=== PATIENT | male | born 1975 | race Caucasian/White ===

== ENCOUNTER 2020-07-30 14:36 | Inpatient (IN) | payer OTHER, SELFPAY ==
[2020-07-30] VITALS (15 sets, daily range): BP systolic 127–196; BP diastolic 67–99; PULSE 93–117; RESP 16–32; TEMP 36.3–36.7; O2SAT 94–99; BMI 34.9; BMI 35.0
--- NOTE | 2020-07-30 15:23 | DI.RAD.S_ITS ---
PROCEDURE: XR CHEST 1V INDICATIONS: chest pain TECHNIQUE: One view of the chest was acquired. COMPARISON: None. FINDINGS: Surgical changes and devices: None. Lungs and pleura: Lungs are clear. No pleural effusions or pneumothorax. Mediastinum: Mediastinal contours appear normal. Heart size is normal. Bones and chest wall: No suspicious bony lesions. Overlying soft tissues appear unremarkable. IMPRESSION: No acute cardiopulmonary pathology. Dictated by: Steve Moreno M.D. on 07/30/2020 at 15:02 Approved by: Steve Moreno M.D. on 07/30/2020 at 15:05
--- NOTE | 2020-07-30 15:23 | PC.NURSE ---
POC glucose greater than 500. Provider notified and lab sent to verify.
--- NOTE | 2020-07-30 15:27 | ED_ITS ---
HPI - Chest Pain General Chief Complaint: Chest Pain Stated Complaint: chest pains/nausea/stomach pains x3 days Time Seen by Provider: 07/30/20 15:24 Source: patient Mode of arrival: Ambulatory Limitations: no limitations History of Present Illness HPI narrative: 45-year-old male comes in with complaint of epigastric abdominal pain radiating to chest and jaw. Patient states it has been present for 3-4 days. He states it started on , he started having anorexia not wanting to eat much on Thursday and began vomiting on Thursday as well. He has not had fevers but has had hot flashes on and off. He has had some vomiting recently as well as persistent nausea. Patient states that he has not had any diarrhea. He has been constipated. He states that he has also had a D increase in his urine output. He has had not had any known fevers. He has not had any cough cold symptoms. He does have a history of ETOH abuse and has had pancreatitis in the past secondary to this, he has a history of a [place] fundoplication take Zofran omeprazole regularly. He is on metformin as well as insulin for diabetes, he takes an anti hypertension, dyslipidemia. He denies any aspirin. No prior strokes or MIs. He has never had prior DKA but has had issues with hyperglycemia in the past. He quit taking his insulin on . Patient states that he does still drink 224 oz beers nightly which he states is a decrease from his prior. He uses THC intermittently. Denies any tobacco. Related Data Home Medications Medication Instructions Recorded Confirmed atorvastatin 80 mg tablet 80 mg PO DAILY 04/20/20 04/24/20 fluoxetine 40 mg capsule 40 mg PO DAILY 04/20/20 04/24/20 fluticasone propionate 50 1 inhalation INHALATION BID 04/20/20 04/24/20 mcg/actuation blister powder for inhalation insulin glargine 100 unit/mL (3 10 unit SUBCUT DAILY 04/20/20 04/24/20 mL) subcutaneous pen insulin regular hum U-500 conc 500 25 unit SUBCUT BEDTIME 04/20/20 04/24/20 unit/mL subcutaneous soln zesokz-[id number]-uelbzsy 1 cap PO BID 04/20/20 04/24/20 12,000-38,000-60,000 unit capsule,delayed rel metformin 500 mg tablet 500 mg PO DAILY 04/20/20 04/24/20 chlorthalidone 25 mg tablet 25 mg PO DAILY 04/24/20 04/24/20 lisinopril 40 mg tablet 40 mg PO DAILY 04/24/20 04/24/20 Allergies Allergy/AdvReac Type Severity Reaction Status Date / Time No Known Drug Allergies Allergy Verified 07/30/20 14:46 Review of Systems Review of Systems ROS Unobtainable: All systems reviewed & are unremarkable except as noted in HPI and below Patient History Medical History Acute kidney injury Arthritis BPH w urinary obs/LUTS Chronic GERD Depression Diabetes mellitus Erectile dysfunction Erectile dysfunction Gastritis Hyperlipidemia Hypertension Pancreatitis Social History Smoking Status: Never smoker Smoking Status: Never smoker alcohol intake frequency: 0-2 drinks per day Substance Use Type: marijuana Exam Narrative Exam Narrative: GENERAL: Alert and oriented x three, obese male in mild to moderate distress. HEENT: Head normocephalic, atraumatic, EOMI, pupils reactive, face symmetric, moist mucous membranes NECK: Supple, full range of motion CARDIOVASCULAR: Tachycardic Regular rate and rhythm without murmurs, rubs or gallops. No JVD. No edema bilateral lower extremities. RESPIRATORY: Breath sounds equal bilaterally, no wheezes rales or rhonchi. ABDOMEN: Soft, nontender to palpation. Normoactive bowel sounds all 4 quadrants. No guarding or rebound, rigidity, no mass : No CVA tenderness EXTREMITIES: Normal range of motion. Neurovascularly intact NEUROLOGICAL: Cranial nerves II through XII grossly intact. Moving all extremities SKIN: Warm, dry, no petechiae, no rashes or lesions. Initial Vital Signs Initial Vital Signs: Vital Signs Temperature 97.8 F 07/30/20 14:42 Pulse Rate 110 H 07/30/20 14:42 Respiratory Rate 22 07/30/20 14:42 Blood Pressure 188/96 H 07/30/20 14:42 Pulse Oximetry 99 07/30/20 14:42 Scores GCS [place] coma scale eye opening: Spontaneous [place] coma scale verbal response: Orientated [place] coma scale motor response: Obey commands [place] coma scale total score: 15 Course Orders Ordered: ED Orders 07/30/20 15:19 Complete Blood Count AUTO DIFF Stat Comprehensive Metabolic Panel Stat Ketones (Beta-Hydroxybutyrate) Stat Lactate (Lactic Acid) Stat Lipase Stat Partial Thromboplastin Time Stat Procalcitonin Stat Prothrombin Time INR Stat Triglycerides Stat Troponin & CK Cardiac Panel Stat 07/30/20 15:23 XR chest 1V Stat EKG-12 Lead Stat 07/30/20 15:25 EKG-12 Lead Stat 07/30/20 16:08 Venous Blood Gas Stat 07/30/20 16:09 US abdomen complete Stat Blood Culture Stat 07/30/20 16:10 Arterial Blood Gas Stat 07/30/20 16:31 Urine Microscopic Stat 07/30/20 16:49 COVID19 Stat 07/30/20 17:44 Arterial Blood Gas Stat Heparin Sodium (Porcine) (Heparin 5,000 Unit/Ml Vial) 5,000 unit SUBCUT BID ROSARIO INSULIN DRIP PREMIX (Myxredlin Drip Premix) 100 unit in 100 mls @ 6 mls/hr IV TITRATE ROSARIO; Protocol Sodium Chloride (Normal Saline 0.9%) 1,000 mls @ 100 mls/hr IV CONT ROSARIO Naloxone HCl (Naloxone 0.4 Mg/Ml Vial) 0.2 mg IV Q2MIN PRN PRN Reason: Opiate Reversal Pantoprazole Sodium (Pantoprazole 40 Mg Vial) 40 mg IV DAILY ROSARIO Discontinued Medications Sodium Chloride (Normal Saline 0.9%) 1,000 mls @ 1,000 mls/hr IV BOLUS ONE Stop: 07/30/20 16:24 Last Admin: 07/30/20 15:58 Dose: 1,000 mls/hr Documented by: RMARTIN Sodium Chloride (Normal Saline 0.9%) 1,000 mls @ 1,000 mls/hr IV BOLUS ONE Stop: 07/30/20 17:25 Last Infusion: 07/30/20 17:19 Dose: Infused Documented by: Insulin Human Regular (Insulin Regular 100 Unit/Ml 3 Ml Vial) 10 unit SUBCUT NOW ONE Stop: 07/30/20 17:22 Morphine Sulfate (Morphine 4 Mg/Ml Inj) 4 mg IV NOW ONE Stop: 07/30/20 16:21 Last Admin: 07/30/20 17:18 Dose: 4 mg Documented by: Consultations Consultation #1: Spoke with Dr. Mazariegos, requests triglycerides and ABG to help determine floor versus ICU placement. Dr. Mazariegos called back and would like insulin gtt, and to hold subcutaneous insulin. Time: 17:21 Vital Signs Vital signs: Vital Signs - 8 hr 07/30/20 14:42 07/30/20 15:24 07/30/20 15:30 Temperature 97.8 F Pulse Rate 110 H 117 H 107 H Respiratory Rate 22 26 H 32 H Blood Pressure 188/96 H 182/96 H Pulse Oximetry 99 97 98 07/30/20 16:00 07/30/20 16:30 07/30/20 17:00 Temperature Pulse Rate 103 H 98 H 100 H Respiratory Rate 22 24 Blood Pressure 189/91 H 191/93 H 184/94 H Pulse Oximetry 99 97 98 07/30/20 17:30 07/30/20 18:00 Temperature Pulse Rate 101 H 102 H Respiratory Rate 16 25 H Blood Pressure 179/91 H 196/99 H Pulse Oximetry 97 98 MDM - Chest Pain Lab Data Attestation: I reviewed the patient's lab results. Result diagrams: 07/30/20 15:19 07/30/20 15:19 Labs: Lab Results 07/30/20 07/30/20 07/30/20 Range/Units 15:19 15:19 15:19 WBC 12.5 H (4.5-11.0) X10^3/uL RBC 4.93 (4.5-5.9) X10^6/uL Hgb 15.1 (13.5-17.5) g/dL Hct 45.9 (41-53) % MCV 93.1 (80-100) fL MCH 30.5 (26-34) PG MCHC 32.8 (30-36) % RDW 12.7 (11.6-14.8) % Plt Count 221 (150-400) X10^3/uL Neut % (Auto) 88.7 H (50-75) % Lymph % (Auto) 5.8 L (25-40) % Wayne % (Auto) 5.0 (3-14) % Eos % (Auto) 0.0 L (2-4) % Baso % (Auto) 0.5 (0-2) % Neut # (Auto) 53264 H (7629-1790) /uL Lymph # (Auto) 700 L (7401-4719) /uL Wayne # (Auto) 600 (0-900) /uL Eos # (Auto) 0 (0-450) /uL Baso # (Auto) 100 (0-100) /uL PT 11.4 (10.1-12.7) SECONDS INR 1.0 (0.9-1.3) APTT 30 (26.4-36.2) SECONDS ABG pH (7.35-7.45) ABG pCO2 (35-45) mmHg ABG pO2 (80-100) mmHg ABG HCO3 (22-26) mmol/L ABG Total CO2 (21-31) mmol/L ABG O2 Saturation (95-100) % ABG Base Excess (-2-2) mmol/L VBG pH (7.33-7.43) VBG pCO2 (45-50) mmHg VBG pO2 (35-45) mmHg VBG HCO3 (23-28) mmol/L VBG Total CO2 (24-29) mmol/L VBG O2 Saturation (70-75) % VBG Base Excess (0-4) mmol/L FiO2 Sodium 121 L (137-145) mmol/L Potassium 5.7 H (3.4-5.1) mmol/L Chloride 79 L (98-107) mmol/L Carbon Dioxide 20 L (22-32) mmol/L BUN 61 H (9-20) mg/dL Creatinine 2.37 H (0.66-1.25) mg/dL Estimated GFR 29.6 L (>60) mL/min BUN/Creatinine Ratio 25.7 H (6-22) Glucose 791 H* (70-100) mg/dL Lactate (0.7-2.1) mmol/L Calcium 10.1 (8.4-10.2) mg/dL Total Bilirubin 0.9 (0.2-1.3) mg/dL AST 26 (17-59) IU/L ALT 39 (<50) IU/L Alkaline Phosphatase 144 H (38-126) U/L Total Creatine Kinase 350 H (55-170) U/L CK-MB (CK-2) 3.13 H (<2.37) ng/mL CK-MB (CK-2) Rel Index 0.9 L (1.5-5.0) % Troponin I 0.033 (0.01-0.034) ng/mL Total Protein 7.9 (6.3-8.2) g/dL Albumin 4.5 (3.5-5.0) g/dL Globulin 3.4 (1.7-4.1) g/dL Albumin/Globulin Ratio 1.3 (1.0-2.8) Triglycerides (35-150) mg/dL Lipase 3490 H (23-300) U/L Procalcitonin (<0.5) ng/mL Urine RBC (0-5/HPF) Urine WBC (0-5/HPF) Urine Bacteria (None) Ur Culture Indicated? Micro UA Comment Ketones (<0.27) mmol/L COVID-19 PCR (Negative) 07/30/20 07/30/20 07/30/20 Range/Units 15:19 15:19 15:19 WBC (4.5-11.0) X10^3/uL RBC (4.5-5.9) X10^6/uL Hgb (13.5-17.5) g/dL Hct (41-53) % MCV (80-100) fL MCH (26-34) PG MCHC (30-36) % RDW (11.6-14.8) % Plt Count (150-400) X10^3/uL Neut % (Auto) (50-75) % Lymph % (Auto) (25-40) % Wayne % (Auto) (3-14) % Eos % (Auto) (2-4) % Baso % (Auto) (0-2) % Neut # (Auto) (4475-0109) /uL Lymph # (Auto) (8258-8376) /uL Wayne # (Auto) (0-900) /uL Eos # (Auto) (0-450) /uL Baso # (Auto) (0-100) /uL PT (10.1-12.7) SECONDS INR (0.9-1.3) APTT (26.4-36.2) SECONDS ABG pH (7.35-7.45) ABG pCO2 (35-45) mmHg ABG pO2 (80-100) mmHg ABG HCO3 (22-26) mmol/L ABG Total CO2 (21-31) mmol/L ABG O2 Saturation (95-100) % ABG Base Excess (-2-2) mmol/L VBG pH (7.33-7.43) VBG pCO2 (45-50) mmHg VBG pO2 (35-45) mmHg VBG HCO3 (23-28) mmol/L VBG Total CO2 (24-29) mmol/L VBG O2 Saturation (70-75) % VBG Base Excess (0-4) mmol/L FiO2 Sodium (137-145) mmol/L Potassium (3.4-5.1) mmol/L Chloride (98-107) mmol/L Carbon Dioxide (22-32) mmol/L BUN (9-20) mg/dL Creatinine (0.66-1.25) mg/dL Estimated GFR (>60) mL/min BUN/Creatinine Ratio (6-22) Glucose (70-100) mg/dL Lactate 2.2 H (0.7-2.1) mmol/L Calcium (8.4-10.2) mg/dL Total Bilirubin (0.2-1.3) mg/dL AST (17-59) IU/L ALT (<50) IU/L Alkaline Phosphatase (38-126) U/L Total Creatine Kinase (55-170) U/L CK-MB (CK-2) (<2.37) ng/mL CK-MB (CK-2) Rel Index (1.5-5.0) % Troponin I (0.01-0.034) ng/mL Total Protein (6.3-8.2) g/dL Albumin (3.5-5.0) g/dL Globulin (1.7-4.1) g/dL Albumin/Globulin Ratio (1.0-2.8) Triglycerides (35-150) mg/dL Lipase (23-300) U/L Procalcitonin 0.28 (<0.5) ng/mL Urine RBC (0-5/HPF) Urine WBC (0-5/HPF) Urine Bacteria (None) Ur Culture Indicated? Micro UA Comment Ketones 6.54 H (<0.27) mmol/L COVID-19 PCR (Negative) 07/30/20 07/30/20 07/30/20 Range/Units 15:19 16:08 16:31 WBC (4.5-11.0) X10^3/uL RBC (4.5-5.9) X10^6/uL Hgb (13.5-17.5) g/dL Hct (41-53) % MCV (80-100) fL MCH (26-34) PG MCHC (30-36) % RDW (11.6-14.8) % Plt Count (150-400) X10^3/uL Neut % (Auto) (50-75) % Lymph % (Auto) (25-40) % Wayne % (Auto) (3-14) % Eos % (Auto) (2-4) % Baso % (Auto) (0-2) % Neut # (Auto) (3885-1484) /uL Lymph # (Auto) (3314-3559) /uL Wayne # (Auto) (0-900) /uL Eos # (Auto) (0-450) /uL Baso # (Auto) (0-100) /uL PT (10.1-12.7) SECONDS INR (0.9-1.3) APTT (26.4-36.2) SECONDS ABG pH (7.35-7.45) ABG pCO2 (35-45) mmHg ABG pO2 (80-100) mmHg ABG HCO3 (22-26) mmol/L ABG Total CO2 (21-31) mmol/L ABG O2 Saturation (95-100) % ABG Base Excess (-2-2) mmol/L VBG pH 7.32 L (7.33-7.43) VBG pCO2 41.0 L (45-50) mmHg VBG pO2 26 L (35-45) mmHg VBG HCO3 21 L (23-28) mmol/L VBG Total CO2 23 L (24-29) mmol/L VBG O2 Saturation 44 L (70-75) % VBG Base Excess -5.0 L (0-4) mmol/L FiO2 Sodium (137-145) mmol/L Potassium (3.4-5.1) mmol/L Chloride (98-107) mmol/L Carbon Dioxide (22-32) mmol/L BUN (9-20) mg/dL Creatinine (0.66-1.25) mg/dL Estimated GFR (>60) mL/min BUN/Creatinine Ratio (6-22) Glucose (70-100) mg/dL Lactate (0.7-2.1) mmol/L Calcium (8.4-10.2) mg/dL Total Bilirubin (0.2-1.3) mg/dL AST (17-59) IU/L ALT (<50) IU/L Alkaline Phosphatase (38-126) U/L Total Creatine Kinase (55-170) U/L CK-MB (CK-2) (<2.37) ng/mL CK-MB (CK-2) Rel Index (1.5-5.0) % Troponin I (0.01-0.034) ng/mL Total Protein (6.3-8.2) g/dL Albumin (3.5-5.0) g/dL Globulin (1.7-4.1) g/dL Albumin/Globulin Ratio (1.0-2.8) Triglycerides 887 H (35-150) mg/dL Lipase (23-300) U/L Procalcitonin (<0.5) ng/mL Urine RBC None seen (0-5/HPF) Urine WBC None seen (0-5/HPF) Urine Bacteria None seen (None) Ur Culture Indicated? Cult not indicated Micro UA Comment Microscopic normal Ketones (<0.27) mmol/L COVID-19 PCR (Negative) 07/30/20 07/30/20 Range/Units 16:49 17:44 WBC (4.5-11.0) X10^3/uL RBC (4.5-5.9) X10^6/uL Hgb (13.5-17.5) g/dL Hct (41-53) % MCV (80-100) fL MCH (26-34) PG MCHC (30-36) % RDW (11.6-14.8) % Plt Count (150-400) X10^3/uL Neut % (Auto) (50-75) % Lymph % (Auto) (25-40) % Wayne % (Auto) (3-14) % Eos % (Auto) (2-4) % Baso % (Auto) (0-2) % Neut # (Auto) (8826-2084) /uL Lymph # (Auto) (7514-3466) /uL Wayne # (Auto) (0-900) /uL Eos # (Auto) (0-450) /uL Baso # (Auto) (0-100) /uL PT (10.1-12.7) SECONDS INR (0.9-1.3) APTT (26.4-36.2) SECONDS ABG pH 7.36 (7.35-7.45) ABG pCO2 34.2 L (35-45) mmHg ABG pO2 72 L (80-100) mmHg ABG HCO3 19 L (22-26) mmol/L ABG Total CO2 20 L (21-31) mmol/L ABG O2 Saturation 94 L (95-100) % ABG Base Excess -6.0 L (-2-2) mmol/L VBG pH (7.33-7.43) VBG pCO2 (45-50) mmHg VBG pO2 (35-45) mmHg VBG HCO3 (23-28) mmol/L VBG Total CO2 (24-29) mmol/L VBG O2 Saturation (70-75) % VBG Base Excess (0-4) mmol/L FiO2 21 Sodium (137-145) mmol/L Potassium (3.4-5.1) mmol/L Chloride (98-107) mmol/L Carbon Dioxide (22-32) mmol/L BUN (9-20) mg/dL Creatinine (0.66-1.25) mg/dL Estimated GFR (>60) mL/min BUN/Creatinine Ratio (6-22) Glucose (70-100) mg/dL Lactate (0.7-2.1) mmol/L Calcium (8.4-10.2) mg/dL Total Bilirubin (0.2-1.3) mg/dL AST (17-59) IU/L ALT (<50) IU/L Alkaline Phosphatase (38-126) U/L Total Creatine Kinase (55-170) U/L CK-MB (CK-2) (<2.37) ng/mL CK-MB (CK-2) Rel Index (1.5-5.0) % Troponin I (0.01-0.034) ng/mL Total Protein (6.3-8.2) g/dL Albumin (3.5-5.0) g/dL Globulin (1.7-4.1) g/dL Albumin/Globulin Ratio (1.0-2.8) Triglycerides (35-150) mg/dL Lipase (23-300) U/L Procalcitonin (<0.5) ng/mL Urine RBC (0-5/HPF) Urine WBC (0-5/HPF) Urine Bacteria (None) Ur Culture Indicated? Micro UA Comment Ketones (<0.27) mmol/L COVID-19 PCR Negative (Negative) Point of Care Testing Glucose POC 500 Urine Dip Bedside Urine Glucose 1000 mg/dl Bedside Urine Bilirubin - Negative Bedside Urine Ketone + 15 Urine Specific [place] 1.020 Bedside Urine Occult Blood +++ Bedside Urine pH 6.0 Bedside Urine Protein ++ 100 Bedside Urine Urobilinogen - Negative Bedside Urine Nitrite - Negative Bedside Urine Leukocytes - Negative Esterase Imaging Data US - abdomen: Radiologist's Impression: [address] [id number] ReportSigned Patient: Nic Morrison JMR#: [id number]: 1975Acct:[id number]/Sex: 45 / MDate of Service: 07/30/20Loc: EDAccession Number: [id number] Procedure: US abdomen complete Ordering Provider: Leilani Mccarthy D.O. PROCEDURE: US ABDOMEN COMPLETE INDICATIONS: HYPERGLYCEMIA, ELEVATED LIPASE TECHNIQUE: Real-time scanning was performed of the abdominal and retroperitoneal organs, with image documentation. COMPARISON: [facility], CT, CT ABDOMEN PELVIS WITH CONTRAST, 12/26/2019, 18:23. FINDINGS: Liver: The liver demonstrates normal size. The liver demonstrates generalized moderately increased echogenicity and heterogeneity. This decreases ultrasound sensitivity for detection of hepatic masses. Gallbladder: No findings of gallstones or sludge are seen. The gallbladder wall is not thickened, measuring 3 mm or less. Gallbladder wall polyps can be seen, without abnormal vascularity. No specific pericholecystic fluid is seen. The sonographic Scott sign is negative. Biliary ducts: Not well seen. Pancreas: Visualized portions of the pancreas are sonographically normal. Spleen: The spleen is enlarged measuring 13 x 1 x 12.8 x 4.6 cm, with a calculated volume of 403 cubic cm. Kidneys: No left kidney is seen; the patient gives a history of renal agenesis. The right kidney measures 13.1 cm and demonstrates no hydronephrosis, stones, or solid masses. Aorta: Visualized aorta is normal in caliber at less than 3 cm. Iliacs: Proximal common iliac arteries are normal in caliber at less than 2.5 cm. IVC: Intrahepatic inferior vena cava is patent. Miscellaneous: No free abdominal fluid. IMPRESSION: No acute abnormality is seen to explain the patient's presenting symptoms. Mildly enlarged spleen. The liver demonstrates increased echogenicity. This finding is nonspecific, yet it is most commonly attributed to fatty infiltration. Solitary right kidney. Dictated by: Andrzej Trinidad M.D. on 07/30/2020 at 16:09 Approved by: Andrzej Trinidad M.D. on 07/30/2020 at 16:11 Chest x-ray: Radiologist's Impression: [address] [id number] ReportSigned Patient: Nic Morrison R#: [id number]: 1975Acct:[id number]/Sex: 45 / MDate of Service: 07/30/20Loc: EDAccession Number: [id number] Procedure: XR chest 1V Ordering Provider: Leilani Mccarthy D.O. PROCEDURE: XR CHEST 1V INDICATIONS: chest pain TECHNIQUE: One view of the chest was acquired. COMPARISON: None. FINDINGS: Surgical changes and devices: None. Lungs and pleura: Lungs are clear. No pleural effusions or pneumothorax. Mediastinum: Mediastinal contours appear normal. Heart size is normal. Bones and chest wall: No suspicious bony lesions. Overlying soft tissues appear unremarkable. IMPRESSION: No acute cardiopulmonary pathology. Dictated by: Steve Moreno M.D. on 07/30/2020 at 15:02 Approved by: Steve Moreno M.D. on 07/30/2020 at 15:0 ECG Data Attestation: I personally reviewed and interpreted this ECG as follows: Prior ECG tracings: not available for review Interpretation: Sinus tachycardia with frequent PVCs, rate of 102, CT 141, QRS of 101 and QTC of 413. No significant ST changes appreciated. MDM Narrative Medical decision making narrative: 45-year-old male comes in with abdominal pain radiating into his chest. He has pancreatitis, hyperglycemia which is bordering on DKA with acidosis, anion gap of 20, hyperkalemia and hyponatremia which when corrected is 132. Patient also has acute kidney injury. Pancreatitis which patient states he has had in the past related to alcohol use but after further discussion he has also has hypertriglyceridemia with numbers in the 3000 in the past. Procalcitonin is negative. Abdominal ultrasound does not show any acute changes today other than splenomegaly and increased echogenicity of the liver. covid swab is negative. Dr. zarate in our hospitalist, secondary to hypertriglyceridemia patient is to be started on insulin drip. He does not require potassium placement at this time. And is admitted to the ICU. Critical Care Time Critical Care Time Critical Care Time: Yes Total Critical Care Time: 90 Attestation: The high probability of a clinically significant, sudden or life threatening deterioration of the [cardiac, pulm, renal] system(s) required my full and direct attention, intervention and personal management. The aggregate critical care time was [90] minutes. This time is in addition to time spent performing reported procedures but includes the following: [x] Data Review and interpretation [x] Patient assessment and monitoring of vital signs [x] Documentation [x] Medication orders and management Discharge Plan Departure Patient Disposition: Admitted As Inpatient Clinical Impression: Hyperglycemia, Pancreatitis, Hypertriglyceridemia Admit Date/Time: 07/30/20 18:05 Admit Provider: Michael Mazariegos
[2020-07-30 15:32] LABS: Prothrombin Time 11.4 SECONDS (10.1-12.7)
[2020-07-30 15:33] LABS: Add Manual Diff / Slide Review NO; Basophils Absolute Auto 100 /uL (0-100); Basophils Percent Auto 0.5 % (0-2); Eosinophils Absolute Auto 0 /uL (0-450); Hematocrit 45.9 % (41-53); Hemoglobin 15.1 g/dL (13.5-17.5); Lymphocytes Absolute Auto 700 /uL (1100-4500); Lymphocytes Percent Auto 5.8 % (25-40); Mean Corpuscular HGB Conc 32.8 % (30-36); Mean Corpuscular Hemoglobin 30.5 PG (26-34); Mean Corpuscular Volume 93.1 fL (80-100); Monocytes Absolute Auto 600 /uL (0-900); Neutrophils Absolute Auto 11100 /uL (1500-7000); Neutrophils Percent Auto 88.7 % (50-75); Platelet Count 221 X10^3/uL (150-400); Red Blood Cell Count 4.93 X10^6/uL (4.5-5.9); Red Cell Distribution Width 12.7 % (11.6-14.8); White Blood Cell Count 12.5 X10^3/uL (4.5-11.0)
[2020-07-30 15:34] LABS: PTT Partial Thromboplastin Tim 30 SECONDS (26.4-36.2)
[2020-07-30 15:36] LABS: Alanine Aminotransferase 39 IU/L (<50); Albumin 4.5 g/dL (3.5-5.0); Albumin Globulin Ratio 1.3 (1.0-2.8); Alkaline Phosphatase 144 U/L (38-126); Aspartate Aminotransferase 26 IU/L (17-59); BUN Creatinine Ratio 25.7 (6-22); Bilirubin Total 0.9 mg/dL (0.2-1.3); Blood Urea Nitrogen 61 mg/dL (9-20); Calcium 10.1 mg/dL (8.4-10.2); Carbon Dioxide 20 mmol/L (22-32); Chloride 79 mmol/L (98-107); Creatine Kinase 350 U/L (55-170); Estimated Glomerular Filt Rate 29.6 mL/min (>60); Globulin 3.4 g/dL (1.7-4.1); HEMOLYSIS < 15 (0-50); Potassium 5.7 mmol/L (3.4-5.1); Sodium 121 mmol/L (137-145); Total Protein 7.9 g/dL (6.3-8.2)
[2020-07-30 15:46] LABS: Glucose 791 mg/dL (70-100); Lipase 3490 U/L (23-300)
[2020-07-30 15:47] LABS: Troponin I 0.033 ng/mL (0.01-0.034)
[2020-07-30 15:51] LABS: CKMB % Relative Index 0.9 % (1.5-5.0); Creatine Kinase MB 3.13 ng/mL (<2.37); Lactate (Lactic Acid) 2.2 mmol/L (0.7-2.1)
[2020-07-30 15:56] LABS: Ketones (Beta-Hydroxybutyrate) 6.54 mmol/L (<0.27)
[2020-07-30] MEDS: SODIUM CHLORIDE 0.9% 1,000 ML 1000 ML IV ×2 (15:58→17:17)
--- NOTE | 2020-07-30 16:09 | DI.US.S_ITS ---
PROCEDURE: US ABDOMEN COMPLETE INDICATIONS: HYPERGLYCEMIA, ELEVATED LIPASE TECHNIQUE: Real-time scanning was performed of the abdominal and retroperitoneal organs, with image documentation. COMPARISON: [facility], CT, CT ABDOMEN PELVIS WITH CONTRAST, 12/26/2019, 18:23. FINDINGS: Liver: The liver demonstrates normal size. The liver demonstrates generalized moderately increased echogenicity and heterogeneity. This decreases ultrasound sensitivity for detection of hepatic masses. Gallbladder: No findings of gallstones or sludge are seen. The gallbladder wall is not thickened, measuring 3 mm or less. Gallbladder wall polyps can be seen, without abnormal vascularity. No specific pericholecystic fluid is seen. The sonographic Scott sign is negative. Biliary ducts: Not well seen. Pancreas: Visualized portions of the pancreas are sonographically normal. Spleen: The spleen is enlarged measuring 13 x 1 x 12.8 x 4.6 cm, with a calculated volume of 403 cubic cm. Kidneys: No left kidney is seen; the patient gives a history of renal agenesis. The right kidney measures 13.1 cm and demonstrates no hydronephrosis, stones, or solid masses. Aorta: Visualized aorta is normal in caliber at less than 3 cm. Iliacs: Proximal common iliac arteries are normal in caliber at less than 2.5 cm. IVC: Intrahepatic inferior vena cava is patent. Miscellaneous: No free abdominal fluid. IMPRESSION: No acute abnormality is seen to explain the patient's presenting symptoms. Mildly enlarged spleen. The liver demonstrates increased echogenicity. This finding is nonspecific, yet it is most commonly attributed to fatty infiltration. Solitary right kidney. Dictated by: Andrzej Trinidad M.D. on 07/30/2020 at 16:09 Approved by: Andrzej Trinidad M.D. on 07/30/2020 at 16:11
[2020-07-30 16:30] LABS: HCO3 VBG 21 mmol/L (23-28); Oxygen Saturation VBG 44 % (70-75); PO2 VBG 26 mmHg (35-45); Total CO2 VBG 23 mmol/L (24-29); pH VBG 7.32 (7.33-7.43)
[2020-07-30 16:40] LABS: Bacteria Urine None Seen; RBC Urine None Seen (0-5/HPF); WBC Urine None Seen (0-5/HPF)
[2020-07-30 16:55] LABS: Culture Indicated Urine Cult Not Indicated; Urine Comments Microscopic Normal
[2020-07-30] MEDS: MORPHINE 4 MG/ML INJ IV ×2 (17:18→23:55)
[2020-07-30 17:33] LABS: Reflexed Lactate in 2 Hours Y
[2020-07-30 17:41] LABS: Triglycerides 887 mg/dL (35-150)
[2020-07-30 17:45] LABS: COVID19 -Nasal RAPID Negative (Negative)
[2020-07-30 17:46] LABS: Procalcitonin 0.28 ng/mL (<0.5)
[2020-07-30 17:52] LABS: Fractionated Inspired Oxygen 21; HCO3 ABG 19 mmol/L (22-26); Oxygen Saturation ABG 94 % (95-100); PCO2 ABG 34.2 mmHg (35-45); PO2 ABG 72 mmHg (80-100); TCO2 ABG 20 mmol/L (21-31); pH ABG 7.36 (7.35-7.45)
--- NOTE | 2020-07-30 18:24 | P.HP_ITS ---
History of Present Illness History of Present Illness Date Patient Seen: 07/30/20 Time Patient Seen: 18:24 Chief complaint: chest pains/nausea/stomach pains x3 days Narrative: Nic Morrison is a 45-year-old male with a past medical history of type 2 diabetes, hypertension, hyperlipidemia and hypertriglyceridemia, GERD, alcohol use who presented with epigastric abdominal pain, nausea, and vomiting for the past 4 days. Patient states that he had some marijuana approximately 5 days ago, afterwards he developed subsequent abdominal pain, nausea and vomiting which he actually states is fairly typical after he smokes. He then developed epigastric pain, nonradiating, stabbing like, and fairly constant. This continued for the next 4 days. Because of this nausea and vomiting he had not been taking any medications for his diabetes, but was taking Zofran an Advil to try and help his symptoms. He had an electronic visit with a provider today, he checked his glucose in his meter read high and he was sent to the emergency room for further evaluation. He does report feeling sweaty during his episodes of emesis, but denies any chest pain, shortness of breath, lower extremity edema, orthopnea. His belly does feel slightly bloated and he also endorses a mild cough. He denies any urinary frequency. His states that over the past week or so he has been extremely fatigued and sleeping a lot during the day. Patient has a previous history of pancreatitis, which he states was from alcohol as he used to drink more. He also states that he has had a triglyceride level over 3000 in the past but does not take any specific therapy for triglycerides, only a statin. He currently drinks an occasional beer (maybe two) with dinner most nights but not every night. 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 In the emergency room, patient was hypertensive, tachycardic, and mildly tachypneic. Oxygen saturation was normal on room air. Laboratory evaluation revealed leukocytosis with a white count of 12.5, 89% neutrophils, but no other abnormalities. ABG showed a bicarb of 19, pH of 7.36, and a pCO2 of 34. Chemistries revealed a sodium of 121 with a glucose of 791. Corrected this comes out to a sodium of 132. Potassium was elevated at 5.7, chloride was 79, CO2 was 20, BUN 61, creatinine 2.37. Lactic acid was 2.2. There were no elevations in his transaminase levels of bilirubin. Troponin was within normal limits at 0.33. Lipase was 3490. Procalcitonin was 0.2 weight. Triglyceride level was 887. UA did not show evidence of infection. Ketones were elevated at 6.54. COVID-19 testing was negative. EKG ordered but is currently pending. Patient will be admitted to the ICU for an insulin drip for treatment of hypertriglyceridemia pancreatitis as well as possible DKA, although this is mild. Patient History Medical History Acute kidney injury Arthritis BPH w urinary obs/LUTS Chronic GERD Depression Diabetes mellitus Erectile dysfunction Erectile dysfunction Gastritis Hyperlipidemia Hypertension Pancreatitis Family & Social History Safety & Behavioral: Feels Safe in Current Yes Environment Been Physically Hurt or No Threatened By a Person Tobacco & Substance use: Smoking Status Never smoker alcohol intake frequency 0-2 drinks per day Substance Use Type marijuana Meds Home Medications and Allergies Home Medications Medication Instructions Recorded Confirmed Type atorvastatin 80 mg tablet 80 mg PO DAILY 04/20/20 04/24/20 History fluoxetine 40 mg capsule 40 mg PO DAILY 04/20/20 04/24/20 History fluticasone propionate 50 1 inhalation INHALATION BID 04/20/20 04/24/20 History mcg/actuation blister powder for inhalation insulin glargine 100 unit/mL (3 10 unit SUBCUT DAILY 04/20/20 04/24/20 History mL) subcutaneous pen insulin regular hum U-500 conc 500 25 unit SUBCUT BEDTIME 04/20/20 04/24/20 History unit/mL subcutaneous soln [id number]-[id number] 1 cap PO BID 04/20/20 04/24/20 History 12,000-38,000-60,000 unit capsule,delayed rel metformin 500 mg tablet 500 mg PO DAILY 04/20/20 04/24/20 History chlorthalidone 25 mg tablet 25 mg PO DAILY 04/24/20 04/24/20 History lisinopril 40 mg tablet 40 mg PO DAILY 04/24/20 04/24/20 History Allergies Allergy/AdvReac Type Severity Reaction Status Date / Time No Known Drug Allergies Allergy Verified 07/30/20 14:46 Review of Systems Review of Systems Narrative: All other systems reviewed with the patient and are negative unless otherwise stated. Exam Vital Signs (past 8 hours): - 07/30/20 14:42 07/30/20 15:24 07/30/20 15:30 Temperature 97.8 F Pulse Rate 110 H 117 H 107 H Respiratory Rate 22 26 H 32 H Blood Pressure 188/96 H 182/96 H Pulse Oximetry 99 97 98 07/30/20 16:00 07/30/20 16:30 07/30/20 17:00 Temperature Pulse Rate 103 H 98 H 100 H Respiratory Rate 22 24 Blood Pressure 189/91 H 191/93 H 184/94 H Pulse Oximetry 99 97 98 07/30/20 17:30 07/30/20 18:00 Temperature Pulse Rate 101 H 102 H Respiratory Rate 16 25 H Blood Pressure 179/91 H 196/99 H Pulse Oximetry 97 98 Oxygen Delivery Method Room Air Narrative Exam Narrative: GENERAL APPEARANCE: Obese male with a BMI of 35, mildly uncomfortable in ER stretcher, but no acute distress SKIN: Inspection of the skin reveals no rashes, ulcerations or petechiae. HEENT: Normocephalic atraumatic, extraocular muscles are intact, oropharynx is clear and mucous membranes are moist, neck is supple without adenopathy NECK: Supple and symmetric. There was no thyroid enlargement, and no tenderness, or masses were felt. CHEST: Normal AP diameter and normal contour without any kyphoscoliosis. LUNGS: Auscultation of the lungs revealed no wheezes, rhonchi, or rales. CARDIOVASCULAR: Tachycardic rate and regular rhythm without any murmurs, gallops, rubs. Peripheral pulses were 2+ and symmetric. ABDOMEN: Soft, mildly distended, nontender (15 min after morphine). MUSCULOSKELETAL: There was no tenderness or effusions noted. Muscle strength and tone were normal. EXTREMITIES: No cyanosis, clubbing or edema. NEUROLOGIC: Alert and oriented x 3. Normal affect. Strength is +5/5 in the Upper Extremities and Lower Extremities Bilaterally. Objective ECG Impression: SINUS TACHYCARDIA WITH FREQUENT VENTRICULAR PREMATURE COMPLEXES ABNORMAL RHYTHM ECG NO prior tracings Imaging US - abdomen: Radiologist's impression: No acute abnormality is seen to explain the patient's presenting symptoms. Mildly enlarged spleen. The liver demonstrates increased echogenicity. This finding is nonspecific, yet it is most commonly attributed to fatty infiltration. Solitary right kidney. Chest x-ray: My impression: No acute pathology Radiologist's impression: No acute pathology. Labs Result Diagrams: 07/30/20 15:19 07/30/20 15:19 Labs: Laboratory Results - last 24 hr 07/30/20 07/30/20 07/30/20 15:19 15:19 15:19 WBC 12.5 H RBC 4.93 Hgb 15.1 Hct 45.9 MCV 93.1 MCH 30.5 MCHC 32.8 RDW 12.7 Plt Count 221 Neut % (Auto) 88.7 H Lymph % (Auto) 5.8 L [place] % (Auto) 5.0 Eos % (Auto) 0.0 L Baso % (Auto) 0.5 Neut # (Auto) 97505 H Lymph # (Auto) 700 L [place] # (Auto) 600 Eos # (Auto) 0 Baso # (Auto) 100 PT 11.4 INR 1.0 APTT 30 ABG pH ABG pCO2 ABG pO2 ABG HCO3 ABG Total CO2 ABG O2 Saturation ABG Base Excess VBG pH VBG pCO2 VBG pO2 VBG HCO3 VBG Total CO2 VBG O2 Saturation VBG Base Excess FiO2 Sodium 121 L Potassium 5.7 H Chloride 79 L Carbon Dioxide 20 L BUN 61 H Creatinine 2.37 H Estimated GFR 29.6 L BUN/Creatinine Ratio 25.7 H Glucose 791 H* Lactate Calcium 10.1 Total Bilirubin 0.9 AST 26 ALT 39 Alkaline Phosphatase 144 H Total Creatine Kinase 350 H CK-MB (CK-2) 3.13 H CK-MB (CK-2) Rel Index 0.9 L Troponin I 0.033 Total Protein 7.9 Albumin 4.5 Globulin 3.4 Albumin/Globulin Ratio 1.3 Triglycerides Lipase 3490 H Procalcitonin Urine RBC Urine WBC Urine Bacteria Ur Culture Indicated? Micro UA Comment Ketones COVID-19 PCR 07/30/20 07/30/20 07/30/20 15:19 15:19 15:19 WBC RBC Hgb Hct MCV MCH MCHC RDW Plt Count Neut % (Auto) Lymph % (Auto) [place] % (Auto) Eos % (Auto) Baso % (Auto) Neut # (Auto) Lymph # (Auto) [place] # (Auto) Eos # (Auto) Baso # (Auto) PT INR APTT ABG pH ABG pCO2 ABG pO2 ABG HCO3 ABG Total CO2 ABG O2 Saturation ABG Base Excess VBG pH VBG pCO2 VBG pO2 VBG HCO3 VBG Total CO2 VBG O2 Saturation VBG Base Excess FiO2 Sodium Potassium Chloride Carbon Dioxide BUN Creatinine Estimated GFR BUN/Creatinine Ratio Glucose Lactate 2.2 H Calcium Total Bilirubin AST ALT Alkaline Phosphatase Total Creatine Kinase CK-MB (CK-2) CK-MB (CK-2) Rel Index Troponin I Total Protein Albumin Globulin Albumin/Globulin Ratio Triglycerides Lipase Procalcitonin 0.28 Urine RBC Urine WBC Urine Bacteria Ur Culture Indicated? Micro UA Comment Ketones 6.54 H COVID-19 PCR 07/30/20 07/30/20 07/30/20 15:19 16:08 16:31 WBC RBC Hgb Hct MCV MCH MCHC RDW Plt Count Neut % (Auto) Lymph % (Auto) [place] % (Auto) Eos % (Auto) Baso % (Auto) Neut # (Auto) Lymph # (Auto) [place] # (Auto) Eos # (Auto) Baso # (Auto) PT INR APTT ABG pH ABG pCO2 ABG pO2 ABG HCO3 ABG Total CO2 ABG O2 Saturation ABG Base Excess VBG pH 7.32 L VBG pCO2 41.0 L VBG pO2 26 L VBG HCO3 21 L VBG Total CO2 23 L VBG O2 Saturation 44 L VBG Base Excess -5.0 L FiO2 Sodium Potassium Chloride Carbon Dioxide BUN Creatinine Estimated GFR BUN/Creatinine Ratio Glucose Lactate Calcium Total Bilirubin AST ALT Alkaline Phosphatase Total Creatine Kinase CK-MB (CK-2) CK-MB (CK-2) Rel Index Troponin I Total Protein Albumin Globulin Albumin/Globulin Ratio Triglycerides 887 H Lipase Procalcitonin Urine RBC None seen Urine WBC None seen Urine Bacteria None seen Ur Culture Indicated? Cult not indicated Micro UA Comment Microscopic normal Ketones COVID-19 PCR 07/30/20 07/30/20 16:49 17:44 WBC RBC Hgb Hct MCV MCH MCHC RDW Plt Count Neut % (Auto) Lymph % (Auto) [place] % (Auto) Eos % (Auto) Baso % (Auto) Neut # (Auto) Lymph # (Auto) [place] # (Auto) Eos # (Auto) Baso # (Auto) PT INR APTT ABG pH 7.36 ABG pCO2 34.2 L ABG pO2 72 L ABG HCO3 19 L ABG Total CO2 20 L ABG O2 Saturation 94 L ABG Base Excess -6.0 L VBG pH VBG pCO2 VBG pO2 VBG HCO3 VBG Total CO2 VBG O2 Saturation VBG Base Excess FiO2 21 Sodium Potassium Chloride Carbon Dioxide BUN Creatinine Estimated GFR BUN/Creatinine Ratio Glucose Lactate Calcium Total Bilirubin AST ALT Alkaline Phosphatase Total Creatine Kinase CK-MB (CK-2) CK-MB (CK-2) Rel Index Troponin I Total Protein Albumin Globulin Albumin/Globulin Ratio Triglycerides Lipase Procalcitonin Urine RBC Urine WBC Urine Bacteria Ur Culture Indicated? Micro UA Comment Ketones COVID-19 PCR Negative Assessment & Plan Assessment & Plan narrative: Nic Morrison is a 45-year-old male with a past medical history of type 2 diabetes, hypertension, hyperlipidemia and hypertriglyceridemia, GERD, alcohol use who presented with epigastric abdominal pain, nausea, and vomiting for the past 4 days, he will be admitted to the ICU for insulin infusion in the setting of possible DKA but more for treatment of hypertriglyceridemia as well as pancreatitis. 1. Acute pancreatitis, present on admission -patient has 1 prior episode of pancreatitis secondary to alcohol he reports. He also reports a history of hypertriglyceridemia. -on admission triglyceride level is 887, this is Likely elevated in the setting of insulin deficiency is he has not been taking any for his diabetes. However, his symptoms seemingly started before he stopped using his insulin making hypertriglyceridemia a less likely primary cause. More likely primary cause is his alcohol use. Ultrasound performed in the ER showed fatty infiltration. rare side effect of NSAID use is pancreatitis as well, however this seems unlikely. -lipase on admission is 3490. -will treat with insulin infusion for hypertriglyceridemia, advised on alcohol Cessation, marijuana cessation. -NPO with IV fluids overnight, okay for ice hips. continue normal saline given mild hyponatremia (121 but corrected is 132). Given 2L boluses in the ER. -repeat lipid panel in the AM -pain control with morphine. 2. Type 2 diabetes with probable diabetic ketoacidosis, acute, present on admission - continue insulin infusion as noted above, glucose of 791 on admission, anion gap 22 but also with lactate of 2.2 and CO2 is only 20. pH on ABG is 7.36. This is a complex picture and DKA is not seemingly as likely and this more likely represents HHS with acute kidney failure in the setting of recent NSAID use and severe dehyrdation. 3. Acute kidney failure, present on admission - creatinine 2.37 with BUN of 61. Likely secondary to severe dehydration and NSAID use over the previous few days. 4. Hyperkalemia, acute, present on admission - likely related to insulin deficiency, have initiated insulin infusion as noted above - EKG without evidence of hyperkalemia. 5. Hypertension, chronic - continue home lisinopril and chlorthalidone when able to tolerate PO, likely elevated in the setting of pain. 6. Hyperlipidemia and hypertriglyceridemia, chronic - continue statin, will add tricor when off insulin infusion 7. GERD - continue PPI 8. Alcohol use disorder, chronic - advised on EtOH cessation 9. Mild hyponatremia, acute, - patient is asymptomatic, Na 121 on admission corrected to 132. continue normal saline infusions. Dispo: Admit to the ICU for insulin infusion, q.1 hour fingersticks. Code: Full, as discussed with the patient. Surrogate decision maker is the patient's . DVT: Heparin subcu Diet: NPO, possibly advanced tomorrow to clears if he is off of insulin infusion and abdominal pain is improved. I spent 50 minutes providing critical care management this patient. This excludes time spent in performing separately billed procedures.
[2020-07-30] MEDS: SODIUM CHLORIDE 0.9% 1,000 ML 100 ML IV (18:34)
[2020-07-30] MEDS: INSULIN DRIP PREMIX 100 UNIT/100 ML PLAST..BAG 6 UNIT IV (18:36)
[2020-07-30 18:52] LABS: Lactate 2HR (Lactic Acid Rflx) 1.7 mmol/L (0.7-2.1)
[2020-07-30] MEDS: HEPARIN 5,000 UNIT/ML VIAL 5000 UNIT SUBCUT (21:13)
[2020-07-30] MEDS: DEXTROSE 5%-0.45% NS 1,000 ML 156 ML IV (22:08)
[2020-07-30 23:09] LABS: BUN Creatinine Ratio 30.1 (6-22); Blood Urea Nitrogen 63 mg/dL (9-20); Calcium 9.5 mg/dL (8.4-10.2); Carbon Dioxide 31 mmol/L (22-32); Chloride 99 mmol/L (98-107); Estimated Glomerular Filt Rate 34.2 mL/min (>60); Glucose 179 mg/dL (70-100); HEMOLYSIS < 15 (0-50); Potassium 4.2 mmol/L (3.4-5.1); Sodium 133 mmol/L (137-145)
--- NOTE | 2020-07-30 23:22 | PC.NURSE ---
Patient admitted from ER. Ambulatory. A/Ox4. RA. On NS and insulin drip. Will titrate drip per DKA protocol. Patient states he's been having N/V and stomach pains for the last 4-5 days and has not taken his medication since last thursday or because he's been feeling so sick. At this time he has no complaints of pain except when his upper stomach is palpated. His BP was elevated in the 160's and he was mildly tachycardic. Patient says he has not had a BM since last week and has not eaten in multiple days. Patient is NPO except for ice chips per BILL Torres. Bed alarm is on, call light within reach, able to make needs known.
[2020-07-31] VITALS (49 sets, daily range): BP systolic 126–187; BP diastolic 73–117; PULSE 79–97; RESP 0–28; TEMP 35.7–36.2; O2SAT 93–99
[2020-07-31 01:06] LABS: Triglycerides 590 mg/dL (35-150)
[2020-07-31] MEDS: SENNOSIDES 8.6 MG TABLET 17.2 MG PO ×2 (04:03→20:29)
[2020-07-31] MEDS: MORPHINE 4 MG/ML INJ IV (04:04)
[2020-07-31] MEDS: DEXTROSE 5%-0.45% NS 1,000 ML 125 ML IV ×2 (04:55→12:11)
[2020-07-31 05:07] LABS: Add Manual Diff / Slide Review NO; Basophils Absolute Auto 0 /uL (0-100); Basophils Percent Auto 0.3 % (0-2); Eosinophils Absolute Auto 200 /uL (0-450); Hematocrit 38.9 % (41-53); Hemoglobin 13.6 g/dL (13.5-17.5); Lymphocytes Absolute Auto 1800 /uL (1100-4500); Lymphocytes Percent Auto 19.1 % (25-40); Mean Corpuscular HGB Conc 34.8 % (30-36); Mean Corpuscular Hemoglobin 31.1 PG (26-34); Mean Corpuscular Volume 89.3 fL (80-100); Monocytes Absolute Auto 800 /uL (0-900); Monocytes Percent Auto 8.1 % (3-14); Neutrophils Absolute Auto 6600 /uL (1500-7000); Neutrophils Percent Auto 70.5 % (50-75); Platelet Count 179 X10^3/uL (150-400); Red Blood Cell Count 4.36 X10^6/uL (4.5-5.9); White Blood Cell Count 9.4 X10^3/uL (4.5-11.0)
[2020-07-31] MEDS: ONDANSETRON 4 MG/2 ML INJ IV ×4 (05:09→19:56)
[2020-07-31] MEDS: INSULIN DRIP PREMIX 100 UNIT/100 ML PLAST..BAG 8 UNIT IV ×2 (05:10→19:13)
[2020-07-31 05:12] LABS: Alanine Aminotransferase 28 IU/L (<50); Albumin 3.6 g/dL (3.5-5.0); Albumin Globulin Ratio 1.2 (1.0-2.8); Alkaline Phosphatase 100 U/L (38-126); Aspartate Aminotransferase 23 IU/L (17-59); BUN Creatinine Ratio 32.4 (6-22); Bilirubin Total 0.4 mg/dL (0.2-1.3); Bilirubin Unconjugated 0.3 mg/dL (0.0-1.1); Blood Urea Nitrogen 57 mg/dL (9-20); Calcium 9.3 mg/dL (8.4-10.2); Carbon Dioxide 31 mmol/L (22-32); Chloride 99 mmol/L (98-107); Cholesterol 298 mg/dL (140-199); Estimated Glomerular Filt Rate 41.7 mL/min (>60); Globulin 2.9 g/dL (1.7-4.1); Glucose 160 mg/dL (70-100); HDL Cholesterol 38 mg/dL (40-60); HEMOLYSIS < 15 (0-50); Magnesium 2.5 mg/dL (1.6-2.3); Potassium 4.1 mmol/L (3.4-5.1); Sodium 134 mmol/L (137-145); Total Protein 6.5 g/dL (6.3-8.2)
[2020-07-31 05:19] LABS: Triglycerides 643 mg/dL (35-150)
[2020-07-31 05:22] LABS: Troponin I 0.019 ng/mL (0.01-0.034)
[2020-07-31 05:33] LABS: Hemoglobin A1C% w Est Avg Glu 10.1 % (4.0-6.0)
[2020-07-31 05:40] LABS: TSH w/ Reflex to FT4 2.49 uIU/mL (0.47-4.68)
--- NOTE | 2020-07-31 05:57 | PC.NURSE ---
Addendum entered by Justyna Villalba R.N. 07/31/20 07:28: Pt c/o epigastric pain 7/10. Medicated with Hydromorphone 1 mg. Pt wretching. Report given to Melanie Anderson RN and notified of patient's recurrance of nausea. Original Note: Patient medicated for epigastric pain 7/10 and c/o nausea and vomiting about an hour later. Pt states epigstric pain is improving with Morphine. Rates pain 3/10. Brian JONES notified of patient's need for antiemetic. Patient given Zofran for nausea.
[2020-07-31] MEDS: HYDROMORPHONE 1 MG INJ IV ×4 (07:14→19:55)
[2020-07-31] MEDS: PANTOPRAZOLE 40 MG VIAL IV (08:52)
[2020-07-31] MEDS: HEPARIN 5,000 UNIT/ML VIAL 5000 UNIT SUBCUT ×2 (08:52→20:29)
--- NOTE | 2020-07-31 12:07 | P.PN_ITS ---
Subjective Subjective Date Patient Seen: 07/31/20 Time Patient Seen: 12:08 Interval history: Nic Morrison is a 45-year-old male with a past medical history of type 2 diabetes, hypertension, hyperlipidemia and hypertriglyceridemia, GERD, alcohol use who presented with epigastric abdominal pain, nausea, and vomiting for the past 4 days admitted to the ICU for insulin infusion in the setting of possible DKA but more for treatment of hypertriglyceridemia as well as p ancreatitis. Overnight his blood sugars are improved, and his acidosis resolved. His initial triglyceride was very close to 500 but later in the morning and actually went up a bit. Insulin infusion was turned down overnight and this was increased again given the rise in his triglyceride levels. He remains on insulin infusion at this time pending repeat triglyceride levels. He is on a D5 half-normal saline infusion. He still complains of epigastric pain and nausea this morning, and Zofran helps temporarily but his nausea returns. He is not hungry or thirsty. His kidney function has improved with a creatinine of 1.76 this morning after fluid resuscitation. Exam Vital Signs (past 8 hours): - 07/31/20 04:30 07/31/20 05:00 07/31/20 05:30 Temperature Pulse Rate 86 89 90 Respiratory Rate 16 18 17 Blood Pressure 154/94 H Pulse Oximetry 95 97 96 07/31/20 06:00 07/31/20 06:30 07/31/20 07:00 Temperature Pulse Rate 91 H 82 90 Respiratory Rate 21 8 L 23 Blood Pressure 138/81 Pulse Oximetry 96 95 94 07/31/20 07:01 07/31/20 07:04 07/31/20 08:00 Temperature 97.2 F L Pulse Rate 86 88 87 Respiratory Rate 16 16 28 H Blood Pressure 138/103 H 165/91 H 137/73 Pulse Oximetry 96 97 93 07/31/20 09:00 07/31/20 10:10 07/31/20 11:00 Temperature Pulse Rate 89 87 89 Respiratory Rate 12 16 18 Blood Pressure 146/82 H 126/74 145/94 H Pulse Oximetry 97 96 98 Oxygen Delivery Method Room Air Oxygen Flow Rate 0 Narrative Exam Narrative: GENERAL APPEARANCE: Obese male with a BMI of 35, no acute distress SKIN: Inspection of the skin reveals no rashes, ulcerations or petechiae. HEENT: Normocephalic atraumatic, extraocular muscles are intact, oropharynx is clear and mucous membranes are moist, neck is supple without adenopathy NECK: Supple and symmetric. There was no thyroid enlargement, and no tenderness, or masses were felt. CHEST: Normal AP diameter and normal contour without any kyphoscoliosis. LUNGS: Auscultation of the lungs revealed no wheezes, rhonchi, or rales. CARDIOVASCULAR: Regular rate and rhythm without any murmurs, gallops, rubs. Peripheral pulses were 2+ and symmetric. ABDOMEN: Soft, mildly distended, tender in the epigastrium. MUSCULOSKELETAL: There was no tenderness or effusions noted. Muscle strength and tone were normal. EXTREMITIES: No cyanosis, clubbing or edema. NEUROLOGIC: Alert and oriented x 3. Normal affect. Strength is +5/5 in the Upper Extremities and Lower Extremities Bilaterally. Objective Labs Result Diagrams: 07/31/20 04:45 07/31/20 04:45 Labs: Laboratory Results - last 24 hr 07/30/20 07/30/20 07/30/20 15:19 15:19 15:19 WBC 12.5 H RBC 4.93 Hgb 15.1 Hct 45.9 MCV 93.1 MCH 30.5 MCHC 32.8 RDW 12.7 Plt Count 221 Neut % (Auto) 88.7 H Lymph % (Auto) 5.8 L [place] % (Auto) 5.0 Eos % (Auto) 0.0 L Baso % (Auto) 0.5 Neut # (Auto) 42846 H Lymph # (Auto) 700 L [place] # (Auto) 600 Eos # (Auto) 0 Baso # (Auto) 100 PT 11.4 INR 1.0 APTT 30 ABG pH ABG pCO2 ABG pO2 ABG HCO3 ABG Total CO2 ABG O2 Saturation ABG Base Excess VBG pH VBG pCO2 VBG pO2 VBG HCO3 VBG Total CO2 VBG O2 Saturation VBG Base Excess FiO2 Sodium 121 L Potassium 5.7 H Chloride 79 L Carbon Dioxide 20 L BUN 61 H Creatinine 2.37 H Estimated GFR 29.6 L BUN/Creatinine Ratio 25.7 H Glucose 791 H* Hemoglobin A1c Lactate Calcium 10.1 Magnesium Total Bilirubin 0.9 Conjugated Bilirubin Unconjugated Bilirubin AST 26 ALT 39 Alkaline Phosphatase 144 H Total Creatine Kinase 350 H CK-MB (CK-2) 3.13 H CK-MB (CK-2) Rel Index 0.9 L Troponin I 0.033 Total Protein 7.9 Albumin 4.5 Globulin 3.4 Albumin/Globulin Ratio 1.3 Triglycerides Cholesterol LDL Cholesterol, Calc HDL Cholesterol Lipase 3490 H Procalcitonin TSH Urine RBC Urine WBC Urine Bacteria Ur Culture Indicated? Micro UA Comment Nasal Screen MRSA (PCR) Ketones COVID-19 PCR 07/30/20 07/30/20 07/30/20 15:19 15:19 15:19 WBC RBC Hgb Hct MCV MCH MCHC RDW Plt Count Neut % (Auto) Lymph % (Auto) [place] % (Auto) Eos % (Auto) Baso % (Auto) Neut # (Auto) Lymph # (Auto) [place] # (Auto) Eos # (Auto) Baso # (Auto) PT INR APTT ABG pH ABG pCO2 ABG pO2 ABG HCO3 ABG Total CO2 ABG O2 Saturation ABG Base Excess VBG pH VBG pCO2 VBG pO2 VBG HCO3 VBG Total CO2 VBG O2 Saturation VBG Base Excess FiO2 Sodium Potassium Chloride Carbon Dioxide BUN Creatinine Estimated GFR BUN/Creatinine Ratio Glucose Hemoglobin A1c Lactate 2.2 H Calcium Magnesium Total Bilirubin Conjugated Bilirubin Unconjugated Bilirubin AST ALT Alkaline Phosphatase Total Creatine Kinase CK-MB (CK-2) CK-MB (CK-2) Rel Index Troponin I Total Protein Albumin Globulin Albumin/Globulin Ratio Triglycerides Cholesterol LDL Cholesterol, Calc HDL Cholesterol Lipase Procalcitonin 0.28 TSH Urine RBC Urine WBC Urine Bacteria Ur Culture Indicated? Micro UA Comment Nasal Screen MRSA (PCR) Ketones 6.54 H COVID-19 PCR 07/30/20 07/30/20 07/30/20 15:19 16:08 16:31 WBC RBC Hgb Hct MCV MCH MCHC RDW Plt Count Neut % (Auto) Lymph % (Auto) [place] % (Auto) Eos % (Auto) Baso % (Auto) Neut # (Auto) Lymph # (Auto) [place] # (Auto) Eos # (Auto) Baso # (Auto) PT INR APTT ABG pH ABG pCO2 ABG pO2 ABG HCO3 ABG Total CO2 ABG O2 Saturation ABG Base Excess VBG pH 7.32 L VBG pCO2 41.0 L VBG pO2 26 L VBG HCO3 21 L VBG Total CO2 23 L VBG O2 Saturation 44 L VBG Base Excess -5.0 L FiO2 Sodium Potassium Chloride Carbon Dioxide BUN Creatinine Estimated GFR BUN/Creatinine Ratio Glucose Hemoglobin A1c Lactate Calcium Magnesium Total Bilirubin Conjugated Bilirubin Unconjugated Bilirubin AST ALT Alkaline Phosphatase Total Creatine Kinase CK-MB (CK-2) CK-MB (CK-2) Rel Index Troponin I Total Protein Albumin Globulin Albumin/Globulin Ratio Triglycerides 887 H Cholesterol LDL Cholesterol, Calc HDL Cholesterol Lipase Procalcitonin TSH Urine RBC None seen Urine WBC None seen Urine Bacteria None seen Ur Culture Indicated? Cult not indicated Micro UA Comment Microscopic normal Nasal Screen MRSA (PCR) Ketones COVID-19 PCR 07/30/20 07/30/20 07/30/20 16:49 17:44 18:25 WBC RBC Hgb Hct MCV MCH MCHC RDW Plt Count Neut % (Auto) Lymph % (Auto) [place] % (Auto) Eos % (Auto) Baso % (Auto) Neut # (Auto) Lymph # (Auto) [place] # (Auto) Eos # (Auto) Baso # (Auto) PT INR APTT ABG pH 7.36 ABG pCO2 34.2 L ABG pO2 72 L ABG HCO3 19 L ABG Total CO2 20 L ABG O2 Saturation 94 L ABG Base Excess -6.0 L VBG pH VBG pCO2 VBG pO2 VBG HCO3 VBG Total CO2 VBG O2 Saturation VBG Base Excess FiO2 21 Sodium Potassium Chloride Carbon Dioxide BUN Creatinine Estimated GFR BUN/Creatinine Ratio Glucose Hemoglobin A1c Lactate 1.7 Calcium Magnesium Total Bilirubin Conjugated Bilirubin Unconjugated Bilirubin AST ALT Alkaline Phosphatase Total Creatine Kinase CK-MB (CK-2) CK-MB (CK-2) Rel Index Troponin I Total Protein Albumin Globulin Albumin/Globulin Ratio Triglycerides Cholesterol LDL Cholesterol, Calc HDL Cholesterol Lipase Procalcitonin TSH Urine RBC Urine WBC Urine Bacteria Ur Culture Indicated? Micro UA Comment Nasal Screen MRSA (PCR) Ketones COVID-19 PCR Negative 07/30/20 07/30/20 07/30/20 20:14 22:50 22:50 WBC RBC Hgb Hct MCV MCH MCHC RDW Plt Count Neut % (Auto) Lymph % (Auto) [place] % (Auto) Eos % (Auto) Baso % (Auto) Neut # (Auto) Lymph # (Auto) [place] # (Auto) Eos # (Auto) Baso # (Auto) PT INR APTT ABG pH ABG pCO2 ABG pO2 ABG HCO3 ABG Total CO2 ABG O2 Saturation ABG Base Excess VBG pH VBG pCO2 VBG pO2 VBG HCO3 VBG Total CO2 VBG O2 Saturation VBG Base Excess FiO2 Sodium 133 L D Potassium 4.2 D Chloride 99 Carbon Dioxide 31 BUN 63 H Creatinine 2.09 H Estimated GFR 34.2 L BUN/Creatinine Ratio 30.1 H Glucose 179 H D Hemoglobin A1c Lactate Calcium 9.5 Magnesium Total Bilirubin Conjugated Bilirubin Unconjugated Bilirubin AST ALT Alkaline Phosphatase Total Creatine Kinase CK-MB (CK-2) CK-MB (CK-2) Rel Index Troponin I Total Protein Albumin Globulin Albumin/Globulin Ratio Triglycerides 590 H Cholesterol LDL Cholesterol, Calc HDL Cholesterol Lipase Procalcitonin TSH Urine RBC Urine WBC Urine Bacteria Ur Culture Indicated? Micro UA Comment Nasal Screen MRSA (PCR) Negative for mrsa Ketones COVID-19 PCR 07/31/20 07/31/20 07/31/20 04:45 04:45 04:45 WBC 9.4 RBC 4.36 L Hgb 13.6 Hct 38.9 L MCV 89.3 D MCH 31.1 MCHC 34.8 RDW 13.0 Plt Count 179 Neut % (Auto) 70.5 Lymph % (Auto) 19.1 L [place] % (Auto) 8.1 Eos % (Auto) 2.0 Baso % (Auto) 0.3 Neut # (Auto) 6600 Lymph # (Auto) 1800 [place] # (Auto) 800 Eos # (Auto) 200 Baso # (Auto) 0 PT INR APTT ABG pH ABG pCO2 ABG pO2 ABG HCO3 ABG Total CO2 ABG O2 Saturation ABG Base Excess VBG pH VBG pCO2 VBG pO2 VBG HCO3 VBG Total CO2 VBG O2 Saturation VBG Base Excess FiO2 Sodium 134 L Potassium 4.1 Chloride 99 Carbon Dioxide 31 BUN 57 H Creatinine 1.76 H Estimated GFR 41.7 L BUN/Creatinine Ratio 32.4 H Glucose 160 H Hemoglobin A1c 10.1 H Lactate Calcium 9.3 Magnesium 2.5 H Total Bilirubin 0.4 Conjugated Bilirubin 0.0 Unconjugated Bilirubin 0.3 AST 23 ALT 28 Alkaline Phosphatase 100 Total Creatine Kinase CK-MB (CK-2) CK-MB (CK-2) Rel Index Troponin I Total Protein 6.5 Albumin 3.6 Globulin 2.9 Albumin/Globulin Ratio 1.2 Triglycerides 643 H Cholesterol 298 H LDL Cholesterol, Calc TNP HDL Cholesterol 38 L Lipase Procalcitonin TSH Urine RBC Urine WBC Urine Bacteria Ur Culture Indicated? Micro UA Comment Nasal Screen MRSA (PCR) Ketones COVID-19 PCR 07/31/20 07/31/20 04:45 04:45 WBC RBC Hgb Hct MCV MCH MCHC RDW Plt Count Neut % (Auto) Lymph % (Auto) [place] % (Auto) Eos % (Auto) Baso % (Auto) Neut # (Auto) Lymph # (Auto) [place] # (Auto) Eos # (Auto) Baso # (Auto) PT INR APTT ABG pH ABG pCO2 ABG pO2 ABG HCO3 ABG Total CO2 ABG O2 Saturation ABG Base Excess VBG pH VBG pCO2 VBG pO2 VBG HCO3 VBG Total CO2 VBG O2 Saturation VBG Base Excess FiO2 Sodium Potassium Chloride Carbon Dioxide BUN Creatinine Estimated GFR BUN/Creatinine Ratio Glucose Hemoglobin A1c Lactate Calcium Magnesium Total Bilirubin Conjugated Bilirubin Unconjugated Bilirubin AST ALT Alkaline Phosphatase Total Creatine Kinase CK-MB (CK-2) CK-MB (CK-2) Rel Index Troponin I 0.019 Total Protein Albumin Globulin Albumin/Globulin Ratio Triglycerides Cholesterol LDL Cholesterol, Calc HDL Cholesterol Lipase Procalcitonin TSH 2.49 Urine RBC Urine WBC Urine Bacteria Ur Culture Indicated? Micro UA Comment Nasal Screen MRSA (PCR) Ketones COVID-19 PCR PFSH Medical History Acute kidney injury Arthritis BPH w urinary obs/LUTS Chronic GERD Depression Diabetes mellitus Erectile dysfunction Erectile dysfunction Gastritis Hyperlipidemia Hypertension Pancreatitis Social History household members: spouse Smoking Status: Former smoker Assessment & Plan Assessment & Plan narrative: Nic Morrison is a 45-year-old male with a past medical history of type 2 diabetes, hypertension, hyperlipidemia and hypert riglyceridemia, GERD, alcohol use who presented with epigastric abdominal pain, nausea, and vomiting for the past 4 days, he will be admitted to the ICU for insulin infusion in the setting of possible DKA but more for treatment of hypertriglyceridemia as well as pancreatitis. 1. Acute pancreatitis, present on admission -patient has 1 prior episode of pancreatitis secondary to alcohol he reports. He also reports a history of hypertriglyceridemia. -on admission triglyceride level is 887, this is Likely elevated in the setting of insulin deficiency as he has not been taking any for his diabetes. However, his symptoms seemingly started before he stopped using his insulin making hypertriglyceridemia a less likely primary cause. More likely primary cause is his alcohol use. Ultrasound performed in the ER showed fatty infiltration. rare side effect of NSAID use is pancreatitis as well, however this seems unlikely. -lipase on admission was 3490. -will continue with insulin infusion for hypertriglyceridemia until TG is <500, advised on alcohol Cessation, marijuana cessation. Insulin infusion increased this AM given rise from 11 pm to morning labs when his rate was turned down to 5 units per hour. -Keep NPO, okay for ice hips. continue IV fluids -pain control with dilaudid as morphine made him more nauseous. 2. Type 2 diabetes with probable diabetic ketoacidosis, acute, present on admission - continue insulin infusion as noted above, glucose of 791 on admission, anion gap 22 but also with lactate of 2.2 and CO2 is only 20. pH on ABG was 7.36. This is a complex picture and DKA is not seemingly as likely and this more likely represents HHS with acute kidney failure in the setting of recent NSAID use and severe dehyrdation. - glucose now improved on insulin infusion. Will transition to long acting, mealtime and corrective insulin once off of infusion. 3. Acute kidney failure, present on admission - creatinine 2.37 with BUN of 61. Likely secondary to severe dehydration and NSAID use over the previous few days. Now improved to 1.76 today. Will continue to follow. Unknown baseline Cr. 4. Hyperkalemia, acute, present on admission, resolved - likely related to insulin deficiency, initiated insulin infusion as noted above with improvement. Will continue to monitor while on insulin infusions with BMP. - EKG without evidence of hyperkalemia. 5. Hypertension, chronic - continue home lisinopril and chlorthalidone when able to tolerate PO, likely elevated in the setting of pain. 6. Hyperlipidemia and hypertriglyceridemia, chronic - continue statin, will add tricor when off insulin infusion 7. GERD - continue PPI 8. Alcohol use disorder, chronic - advised on EtOH cessation 9. Mild hyponatremia, acute, resolved - patient is asymptomatic, Na 121 on admission corrected to 132. continue IV fluids, sodium now 134. Dispo: Admit to the ICU for insulin infusion, q.1 hour fingersticks. Code: Full, as discussed with the patient. Surrogate decision maker is the patient's . DVT: Heparin subcu Diet: NPO, possibly advance to clears if he is off of insulin infusion and abdominal pain / nausea is improved. I spent 34 minutes providing critical care management this patient. This excludes time spent in performing separately billed procedures.
[2020-07-31] MEDS: METOCLOPRAMIDE 10 MG/2 ML INJ 5 MG IV (12:11)
--- NOTE | 2020-07-31 13:45 | CM.DANOTE ---
Discharge Planning/Care Management DCP: assessment: case received, EMR reviewed and met with pt. Introduced self and role.\ Pt is a 45 year old male who admitted to care of hospitalist team. PCP: Azul Dunbar/[facility]. 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 Dr. 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 PEDRO Pinon confirms now that she followed up on this and faxed the form to pt's employer and provided pt with the fax confirmation. P: at this time anticipate pt will d/c to home setting at d/c. He remains thus far on an insulin drip. DCP team will be following prn. CM Discharge Assessment Start: 07/31/20 13:44 Freq: Status: Active Protocol: Document 07/31/20 13:45 ITV (Rec: 07/31/20 13:45 ITV [id number]) Discharge Planning Assessment Advance Directives? No History Provided By Patient,Medical Record Prior Living Arrangements House Household Members spouse Independent with ADL's Yes Is patient alert and oriented? Yes
[2020-07-31 14:48] LABS: BUN Creatinine Ratio 30.4 (6-22); Blood Urea Nitrogen 48 mg/dL (9-20); Carbon Dioxide 28 mmol/L (22-32); Chloride 100 mmol/L (98-107); Estimated Glomerular Filt Rate 47.2 mL/min (>60); Glucose 162 mg/dL (70-100); HEMOLYSIS < 15 (0-50); Potassium 3.9 mmol/L (3.4-5.1); Sodium 132 mmol/L (137-145)
[2020-07-31 14:56] LABS: Triglycerides 674 mg/dL (35-150)
--- NOTE | 2020-07-31 17:16 | PC.NURSE ---
Evening shift note: A/Ox3, pt resting in bed, insulin gtt infusing at 8units/hr, using insulin gtt at this time to treat elevated triglycerides per Dr. Mazariegos. Provider states we are to titrate fluids (currently D5 1/2 NS) to compensate for blood glucose changes. If pt blood glucose drops lower than normal, change fluids to D10 to compensate. Bed low and locked, call light within reach, will continue to monitor.
[2020-07-31] MEDS: DEXTROSE 10 % IN WATER 1,000 ML 150 ML IV (17:32)
[2020-07-31] MEDS: DEXTROSE 10 % IN WATER 1,000 ML 175 ML IV (19:16)
[2020-08-01] VITALS (25 sets, daily range): BP systolic 114–199; BP diastolic 68–110; PULSE 76–103; RESP 12–24; TEMP 36.4–36.8; O2SAT 91–99
[2020-08-01] MEDS: DEXTROSE 10 % IN WATER 1,000 ML 225 ML IV ×2 (00:08→19:59)
[2020-08-01] MEDS: HYDROMORPHONE 1 MG INJ IV ×6 (00:09→20:33)
[2020-08-01] MEDS: ONDANSETRON 4 MG/2 ML INJ IV ×4 (00:18→20:17)
--- NOTE | 2020-08-01 00:39 | CM.MNRNOTE ---
Patient's CBG at 58. D10W titrated to 225 ml/hr. CBG rechecked after 20 minutes and at 64. KAREN Brooks notified of CBG readings and titration of D!0W. Will recheck CBG at 0100. Pt c/o epigastric pain 7/10 and nausea. Pt medicated with Dilaudid and Zofran.
--- NOTE | 2020-08-01 02:13 | PC.NURSE ---
Addendum entered by Justyna Villalba R.N. 08/01/20 06:58: Pt states epigastric pain 3/10. Nausea is low level. D10W has been infusing at 200 ml/hr over the last 3 hours. The 0600 CBG at 139. Addendum entered by Justyna Villalba R.N. 08/01/20 04:45: Pt C/O pain 7/10 in epigastric region. Pt wretching with small amount of bile-like emesis. D10W reduced to 200 ml/hr with CBG at 164. Pt medicated with Dilaudid and Reglan per Emar. Original Note: Pt states that epigastric pain is down to 2-3/10 and nausea is present, but much less. CBG at 0100 at 84, CBG 0130 at 121, CBG 0200 at 128 IV Fluids D10W remain at 250 ml/hr.
[2020-08-01] MEDS: DEXTROSE 10 % IN WATER 1,000 ML 200 ML IV ×2 (04:13→09:18)
[2020-08-01] MEDS: METOCLOPRAMIDE 10 MG/2 ML INJ 5 MG IV ×2 (04:14→13:13)
[2020-08-01 05:06] LABS: Add Manual Diff / Slide Review NO; Basophils Absolute Auto 0 /uL (0-100); Basophils Percent Auto 0.6 % (0-2); Eosinophils Absolute Auto 200 /uL (0-450); Eosinophils Percent Auto 3.4 % (2-4); Hematocrit 39.6 % (41-53); Hemoglobin 13.7 g/dL (13.5-17.5); Lymphocytes Absolute Auto 1600 /uL (1100-4500); Lymphocytes Percent Auto 21.9 % (25-40); Mean Corpuscular HGB Conc 34.6 % (30-36); Mean Corpuscular Volume 89.6 fL (80-100); Monocytes Absolute Auto 600 /uL (0-900); Monocytes Percent Auto 8.7 % (3-14); Neutrophils Absolute Auto 4600 /uL (1500-7000); Neutrophils Percent Auto 65.4 % (50-75); Platelet Count 172 X10^3/uL (150-400); Red Blood Cell Count 4.41 X10^6/uL (4.5-5.9); Red Cell Distribution Width 12.9 % (11.6-14.8); White Blood Cell Count 7.1 X10^3/uL (4.5-11.0)
[2020-08-01 05:14] LABS: Alanine Aminotransferase 33 IU/L (<50); Albumin 3.7 g/dL (3.5-5.0); Albumin Globulin Ratio 1.3 (1.0-2.8); Alkaline Phosphatase 91 U/L (38-126); Aspartate Aminotransferase 38 IU/L (17-59); Bilirubin Total 0.4 mg/dL (0.2-1.3); Bilirubin Unconjugated 0.3 mg/dL (0.0-1.1); Blood Urea Nitrogen 32 mg/dL (9-20); Calcium 8.9 mg/dL (8.4-10.2); Carbon Dioxide 29 mmol/L (22-32); Chloride 97 mmol/L (98-107); Estimated Glomerular Filt Rate 54.8 mL/min (>60); Globulin 2.8 g/dL (1.7-4.1); Glucose 142 mg/dL (70-100); HEMOLYSIS < 15 (0-50); Potassium 3.8 mmol/L (3.4-5.1); Sodium 131 mmol/L (137-145); Total Protein 6.5 g/dL (6.3-8.2)
[2020-08-01 05:22] LABS: Triglycerides 587 mg/dL (35-150)
[2020-08-01] MEDS: HEPARIN 5,000 UNIT/ML VIAL 5000 UNIT SUBCUT ×2 (07:35→20:17)
[2020-08-01] MEDS: INSULIN DRIP PREMIX 100 UNIT/100 ML PLAST..BAG 8 UNIT IV (07:35)
[2020-08-01] MEDS: PANTOPRAZOLE 40 MG VIAL IV (07:43)
--- NOTE | 2020-08-01 09:00 | DI.CT.S_ITS ---
PROCEDURE: CT ABDOMEN PELVIS W CON INDICATIONS: clinical pancreatitis not improving TECHNIQUE: After the administration of oral and intravenous contrast, 5 mm thick sections acquired from the diaphragms to the symphysis. 5 mm thick coronal and sagittal reformats were performed. For radiation dose reduction, the following was used: automated exposure control, adjustment of mA and/or kV according to patient size. COMPARISON: [facility], CT, CT ABDOMEN PELVIS WITH CONTRAST, 12/26/2019, 18:23. [facility], [place], US ABDOMEN COMPLETE, 07/30/2020, 16:21. FINDINGS: Image quality: Excellent. ABDOMEN: Lung bases: Lung bases are clear. Heart size is normal. There is a small Solid organs: In this patient with this given history, scrutiny is given to the pancreas. Pancreas demonstrates a small appearance for age. No pancreatic ductal dilatation is seen. No peripancreatic inflammatory change can be seen to suggest active pancreatitis. Liver is normal in size and enhancement. Gallbladder wall is not thickened. Biliary system is non-dilated. Spleen is normal in size and enhancement. No adrenal nodules. No left kidney is seen. 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 The right kidney is unremarkable, without hydronephrosis. Peritoneum and bowel: Focal wall thickening can be seen involving the distal transverse colon and the splenic flexure. Minimal surrounding inflammatory changes are seen. No free air is seen. No loculated abscess is seen. No significant free fluid is seen. The appendix is prominent in caliber, measuring 7 mm. This is unchanged compared to the prior examination. No. Pending seal inflammatory change can be seen. Stomach, small bowel, and colon loops are otherwise normal in caliber and wall thickness. Nodes and vessels: No retroperitoneal or mesenteric adenopathy. Aorta and inferior vena cava are normal in caliber. Splenic varices are again seen. Miscellaneous: No ventral hernias. PELVIS: Genitourinary: Bladder wall demonstrates [id number] generalized thickening. Miscellaneous: No enlarged inguinal or pelvic lymph nodes are seen. There is a fat-containing right inguinal hernia seen. The left seminal vesicle is not seen. Bones: No suspicious bony lesions. No acute vertebral body compression fractures. Mild, chronic T12 anterior wedge deformity can be seen. Focal L4-L5 degenerative change is seen. At this level, there is mild grade 1 anterolisthesis, with associated pars defects. IMPRESSION: The pancreas is small in size, without pancreatic ductal dilatation. No peripancreatic inflammatory changes are seen. There is focal wall thickening seen involving the distal transverse colon and the splenic flexure of the colon, with surrounding inflammatory change. This is attributed to nonspecific focal colitis. Please correlate with potential infectious and inflammatory causes of colitis. The appendix is prominent, yet without surrounding inflammatory change. This is stable compared to the prior examination. [id number] generalized bladder wall thickening. Please correlate with cystitis versus bladder outlet obstruction. Splenic varices can be seen. Please consider portal venous hypertension. Incidental note is made of: Small hiatal hernia Solitary right kidney Nonvisualization of the left seminal vesicle Fat containing right inguinal hernia Chronic, mild T12 anterior wedge deformity Focal L4-L5 degenerative change, with grade 1 anterolisthesis and pars defects Dictated by: Andrzej Trinidad M.D. on 08/01/2020 at 9:39 Approved by: Andrzej Trinidad M.D. on 08/01/2020 at 9:46
[2020-08-01 11:36] LABS: Lipase 538 U/L (23-300)
[2020-08-01 12:36] LABS: Bacteria Urine None Seen; WBC Urine None Seen (0-5/HPF)
[2020-08-01 12:49] LABS: Appearance Urine UA CLEAR; Bilirubin Urine UA NEGATIVE (NEGATIVE); Color Urine UA YELLOW; Glucose Urine UA TRACE g/dL (Negative); Ketones Urine UA NEGATIVE (NEGATIVE); Leukocyte Esterase Urine UA NEGATIVE (NEGATIVE); Nitrite Urine UA NEGATIVE (Negative); Occult Blood Urine UA 2+ (Negative); Protein Urine UA 2+ (Negative); Specific Gravity Urine UA <=1.005 (1.000-1.035); Urobilinogen Urine UA 0.2 E.U./dL (0.2); pH Urine UA 5.5 (4.5-8.0)
[2020-08-01] MEDS: BISACODYL 10 MG SUPP PR (13:17)
--- NOTE | 2020-08-01 15:08 | PC.NURSE ---
Addendum entered by Melanie Anderson R.N. 08/01/20 16:17: Triglyceride result reviewed with Dr. Mazariegos. Insulin gtt increased to 10 units/hr and D10W increased to 200 ml/hr per MD. Original Note: Day Shift Note Pt with intermittent nausea and upper abdominal pain this shift, reports Dilaudid IV and Reglan/Zofran IV effective for controlling these symptoms. Tolerated PO contrast for CT scan which was done this morning. PO meds attempted with glass of water but pt immediately vomited up whole pills. Dr. Mazariegos notified. Insulin gtt at 8 units/hr and D10W. Titrating D10W to keep CBG greater than 130 - see flowsheet in chart. Last BM was 07/25, pt gave self ducolax suppository (see emar). No results at this time. Call light within reach, using appropriately to make needs known.
--- NOTE | 2020-08-01 15:16 | P.PN_ITS ---
Subjective Subjective Date Patient Seen: 08/01/20 Time Patient Seen: 15:17 Interval history: Nic Morrison is a 45-year-old male with a past medical history of type 2 diabetes, hypertension, hyperlipidemia and hypertriglyceridemia, GERD, alcohol use who presented with epigastric abdominal pain, nausea, and vomiting for the past 4 days admitted to the ICU for insulin infusion in the setting of possible DKA but more for treatment of hypertriglyceridemia as well as p ancreatitis. His TG improved slightly to 587 today, continues on insulin infusion until <500, will repeat level early this afternoon. Patient still with continued abdominal pain, nausea, vomiting. CT abdomen performed which did not show pancreatitis but thickening of distal transverse colon and splenic flexure. He has no diarrhea or fever. His lipase has improved to 587. CT also showing bladder wall thickening, UA was negative on admission and again today. Exam Vital Signs (past 8 hours): - 08/01/20 08:00 08/01/20 09:00 08/01/20 10:04 Temperature 97.5 F L Pulse Rate 83 86 83 Respiratory Rate 15 12 14 Blood Pressure 177/101 H 175/97 H 175/101 H Pulse Oximetry 97 98 98 08/01/20 11:00 08/01/20 12:00 08/01/20 13:00 Temperature 97.7 F Pulse Rate 78 80 83 Respiratory Rate 13 14 15 Blood Pressure 156/94 H 151/95 H 126/88 Pulse Oximetry 99 97 97 08/01/20 14:06 08/01/20 15:00 Temperature Pulse Rate 76 77 Respiratory Rate 14 14 Blood Pressure 136/83 125/75 Pulse Oximetry 97 98 Oxygen Delivery Method Room Air Oxygen Flow Rate 0 Narrative Exam Narrative: GENERAL APPEARANCE: Obese male with a BMI of 35, no acute distress SKIN: Inspection of the skin reveals no rashes, ulcerations or petechiae. HEENT: Normocephalic atraumatic, extraocular muscles are intact, oropharynx is clear and mucous membranes are moist, neck is supple without adenopathy NECK: Supple and symmetric. There was no thyroid enlargement, and no tenderness, or masses were felt. CHEST: Normal AP diameter and normal contour without any kyphoscoliosis. LUNGS: Auscultation of the lungs revealed no wheezes, rhonchi, or rales. CARDIOVASCULAR: Regular rate and rhythm without any murmurs, gallops, rubs. Peripheral pulses were 2+ and symmetric. ABDOMEN: Soft, mildly distended, tender in the epigastrium. MUSCULOSKELETAL: There was no tenderness or effusions noted. Muscle strength and tone were normal. EXTREMITIES: No cyanosis, clubbing or edema. NEUROLOGIC: Alert and oriented x 3. Normal affect. Strength is +5/5 in the Upper Extremities and Lower Extremities Bilaterally. Objective Labs Result Diagrams: 08/01/20 04:50 08/01/20 04:50 Labs: Laboratory Results - last 24 hr 08/01/20 08/01/20 08/01/20 04:50 04:50 04:50 WBC 7.1 RBC 4.41 L Hgb 13.7 Hct 39.6 L MCV 89.6 MCH 31.0 MCHC 34.6 RDW 12.9 Plt Count 172 Neut % (Auto) 65.4 Lymph % (Auto) 21.9 L [place] % (Auto) 8.7 Eos % (Auto) 3.4 Baso % (Auto) 0.6 Neut # (Auto) 4600 Lymph # (Auto) 1600 [place] # (Auto) 600 Eos # (Auto) 200 Baso # (Auto) 0 Sodium 131 L Potassium 3.8 Chloride 97 L Carbon Dioxide 29 BUN 32 H Creatinine 1.39 H Estimated GFR 54.8 L BUN/Creatinine Ratio 23.0 H Glucose 142 H Calcium 8.9 Magnesium 2.0 Total Bilirubin 0.4 Conjugated Bilirubin 0.0 Unconjugated Bilirubin 0.3 AST 38 ALT 33 Alkaline Phosphatase 91 Total Protein 6.5 Albumin 3.7 Globulin 2.8 Albumin/Globulin Ratio 1.3 Triglycerides 587 H Lipase Urine Color Urine Appearance Urine pH Ur Specific [place] Urine Protein Urine Glucose (UA) Urine Ketones Urine Occult Blood Urine Nitrate Urine Bilirubin Urine Urobilinogen Ur Leukocyte Esterase 08/01/20 08/01/20 04:50 12:20 WBC RBC Hgb Hct MCV MCH MCHC RDW Plt Count Neut % (Auto) Lymph % (Auto) [place] % (Auto) Eos % (Auto) Baso % (Auto) Neut # (Auto) Lymph # (Auto) [place] # (Auto) Eos # (Auto) Baso # (Auto) Sodium Potassium Chloride Carbon Dioxide BUN Creatinine Estimated GFR BUN/Creatinine Ratio Glucose Calcium Magnesium Total Bilirubin Conjugated Bilirubin Unconjugated Bilirubin AST ALT Alkaline Phosphatase Total Protein Albumin Globulin Albumin/Globulin Ratio Triglycerides Lipase 538 H D Urine Color Yellow Urine Appearance Clear Urine pH 5.5 Ur Specific [place] <=1.005 Urine Protein 2+ H Urine Glucose (UA) Trace H Urine Ketones Negative Urine Occult Blood 2+ H Urine Nitrate Negative Urine Bilirubin Negative Urine Urobilinogen 0.2 Ur Leukocyte Esterase Negative PFSH Medical History Acute kidney injury Arthritis BPH w urinary obs/LUTS Chronic GERD Depression Diabetes mellitus Erectile dysfunction Erectile dysfunction Gastritis Hyperlipidemia Hypertension Pancreatitis Social History household members: spouse Smoking Status: Former smoker Assessment & Plan Assessment & Plan narrative: Nic Morrison is a 45-year-old male with a past medical history of type 2 diabetes, hypertension, hyperlipidemia and hypertriglyceridemia, GERD, alcohol use who presented with epigastric abdominal pain, nausea, and vomiting for the past 4 days, he will be admitted to the ICU for insulin infusion in the setting of possible DKA but more for treatment of hypertriglyceridemia as well as pancreatitis. 1. Acute pancreatitis, present on admission, possibly resolved -patient has 1 prior episode of pancreatitis secondary to alcohol he reports. He also reports a history of hypertriglyceridemia. -on admission triglyceride level is 887, this is Likely elevated in the setting of insulin deficiency as he has not been taking any for his diabetes. However, his symptoms seemingly started before he stopped using his insulin making hypertriglyceridemia a less likely primary cause. More likely primary cause is his alcohol use. Ultrasound performed in the ER showed fatty infiltration. rare side effect of NSAID use is pancreatitis as well, however this seems unlikely. -lipase on admission was 3490. Repeat today 587. CT scan not performed on admiss ion. CT scan today for continued abdominal pain, nausea, vomiting showing transverse and splenic flexure colitis but no evidence of pancreatitis, although this may be reactive from recent inflammation which has improved after 48 hours of NPO status. -will continue with insulin infusion for hypertriglyceridemia until TG is <500, advised on alcohol Cessation, marijuana cessation. -Keep NPO, okay for ice hips. continue IV fluids with d10 to titrate to blood glucose of >130. -pain control with dilaudid as morphine made him more nauseous. Continue zofran and reglan for nausea relief. 2. Type 2 diabetes with probable diabetic ketoacidosis, acute, present on admission - continue insulin infusion as noted above, glucose of 791 on admission, anion gap 22 but also with lactate of 2.2 and CO2 is only 20. pH on ABG was 7.36. This is a complex picture and DKA is not seemingly as likely and this more likely represents HHS with acute kidney failure in the setting of recent NSAID use and severe dehyrdation. - glucose now improved on insulin infusion. Will transition to long acting, mealtime and corrective insulin once off of infusion. 3. Acute kidney failure, present on admission - creatinine 2.37 with BUN of 61. Likely secondary to severe dehydration and NSAID use over the previous few days. Now improved to 1.39 today. Will continue to follow. Unknown baseline Cr. 4. Hyperkalemia, acute, present on admission, resolved - likely related to insulin deficiency, initiated insulin infusion as noted above with improvement. Will continue to monitor while on insulin infusions with BMP. - EKG without evidence of hyperkalemia. 5. Hypertension, chronic - continue home lisinopril and chlorthalidone when able to tolerate PO, pressure likely elevated in the setting of pain. 6. Hyperlipidemia and hypertriglyceridemia, chronic - continue statin, will add tricor when off insulin infusion 7. GERD - continue PPI 8. Alcohol use disorder, chronic - advised on EtOH cessation 9. Mild hyponatremia, acute, resolved - patient is asymptomatic, Na 121 on admission corrected to 132. continue IV fluids, sodium now 134. 10. Focal colitis, unclear if present on admission - CT abdomen as ntoed above. Transverse and splenic flexure inflammation noted. There is a significant stool burden on CT imaging and this may be related to constipation, however may also be reactive to prior pancreatitis? Plan for suppository today to help relieve constipation, however if persistent symptoms of abdominal pain, nausea, vomiting consider surgery for possible colonscopy for colitis of unclear etiology. If diarrhea develops send GI panel. Dispo: ICU for insulin infusion, q.1 hour fingersticks. Code: Full, as discussed with the patient. Surrogate decision maker is the patient's . DVT: Heparin subcu Diet: NPO, possibly advance to clears if he is off of insulin infusion and abdominal pain / nausea is improved. I spent 34 minutes providing critical care management this patient. This ex cludes time spent in performing separately billed procedures.
[2020-08-01] MEDS: DEXTROSE 10 % IN WATER 1,000 ML 150 ML IV (15:30)
[2020-08-01 16:00] LABS: Triglycerides 663 mg/dL (35-150)
[2020-08-01 16:23] LABS: Culture Indicated Urine Cult Not Indicated; RBC Urine 5-10/HPF (0-5/HPF)
[2020-08-01] MEDS: BISACODYL 5 MG TABLET 20 MG PO (17:06)
[2020-08-01] MEDS: INSULIN DRIP PREMIX 100 UNIT/100 ML PLAST..BAG 10 UNIT IV (19:59)
--- NOTE | 2020-08-01 20:56 | PC.NURSE ---
Addendum entered by Marley Edmonds R.N. 08/02/20 06:13: Overnight, patient started to have stools, small mucus at first, then became loose greenish/preciado, guaiac negative. Zofran given again for nausea and dry heaves, did not request pain medication. Q1h CBGs 94-167, D10 infusion titrated accordingly to keep CBG > 130, see flow sheet. Original Note: Evening Shift Note-Resumed care of patient at 1900, initially stated nausea and abdominal pain are tolerable, then at 2014 while ambulating into BR to attempt BM, he started retching with increased pain, medicated with IV Dilaudid and Zofran, had small loose mucus stool, no emesis. D10W @ 225ml/hr, insulin gtt @ 10units/hr as ordered, goal to keep CBG > 130. VSS.
[2020-08-02] VITALS (8 sets, daily range): BP systolic 125–150; BP diastolic 58–89; PULSE 83–107; RESP 15–20; TEMP 36.4–37.2; O2SAT 95–98
[2020-08-02] MEDS: DEXTROSE 10 % IN WATER 1,000 ML 225 ML IV ×2 (00:49→05:22)
[2020-08-02 05:07] LABS: Add Manual Diff / Slide Review NO; Basophils Absolute Auto 0 /uL (0-100); Basophils Percent Auto 0.7 % (0-2); Eosinophils Absolute Auto 300 /uL (0-450); Eosinophils Percent Auto 4.3 % (2-4); Hematocrit 37.3 % (41-53); Hemoglobin 12.7 g/dL (13.5-17.5); Lymphocytes Absolute Auto 1800 /uL (1100-4500); Lymphocytes Percent Auto 28.3 % (25-40); Mean Corpuscular HGB Conc 34.2 % (30-36); Mean Corpuscular Hemoglobin 30.7 PG (26-34); Mean Corpuscular Volume 89.6 fL (80-100); Monocytes Absolute Auto 700 /uL (0-900); Monocytes Percent Auto 10.6 % (3-14); Neutrophils Absolute Auto 3600 /uL (1500-7000); Neutrophils Percent Auto 56.1 % (50-75); Platelet Count 154 X10^3/uL (150-400); Red Blood Cell Count 4.16 X10^6/uL (4.5-5.9); Red Cell Distribution Width 12.8 % (11.6-14.8); White Blood Cell Count 6.4 X10^3/uL (4.5-11.0)
[2020-08-02 05:17] LABS: Alanine Aminotransferase 31 IU/L (<50); Albumin 3.1 g/dL (3.5-5.0); Albumin Globulin Ratio 1.1 (1.0-2.8); Alkaline Phosphatase 79 U/L (38-126); Aspartate Aminotransferase 34 IU/L (17-59); Bilirubin Total 0.4 mg/dL (0.2-1.3); Bilirubin Unconjugated 0.2 mg/dL (0.0-1.1); Blood Urea Nitrogen 23 mg/dL (9-20); Calcium 8.5 mg/dL (8.4-10.2); Carbon Dioxide 30 mmol/L (22-32); Chloride 92 mmol/L (98-107); Globulin 2.8 g/dL (1.7-4.1); Glucose 144 mg/dL (70-100); HEMOLYSIS < 15 (0-50); Magnesium 1.8 mg/dL (1.6-2.3); Potassium 3.8 mmol/L (3.4-5.1); Sodium 123 mmol/L (137-145); Total Protein 5.9 g/dL (6.3-8.2)
[2020-08-02] MEDS: ONDANSETRON 4 MG/2 ML INJ IV ×3 (05:22→15:39)
[2020-08-02] MEDS: INSULIN DRIP PREMIX 100 UNIT/100 ML PLAST..BAG 10 UNIT IV (05:22)
[2020-08-02 07:13] LABS: Triglycerides 620 mg/dL (35-150)
[2020-08-02 08:09] LABS: Lipase 295 U/L (23-300)
[2020-08-02] MEDS: PANTOPRAZOLE 40 MG VIAL IV (10:37)
[2020-08-02] MEDS: HEPARIN 5,000 UNIT/ML VIAL 5000 UNIT SUBCUT ×2 (10:37→20:18)
[2020-08-02] MEDS: SODIUM CHLORIDE 0.9% 1,000 ML 125 ML IV ×2 (11:05→20:18)
[2020-08-02] MEDS: INSULIN GLARGINE 100 UNIT/ML 3ML PEN 20 UNIT SUBCUT (13:21)
[2020-08-02] MEDS: INSULIN ASPART 100 UNIT/ML INSULN PEN SUBCUT ×3 (13:21→20:27)
[2020-08-02] MEDS: ATORVASTATIN 20 MG TABLET 80 MG PO (13:24)
[2020-08-02] MEDS: FENOFIBRATE 145 MG TABLET PO (13:25)
[2020-08-02] MEDS: lisinopriL 20 MG TABLET 40 MG PO (13:25)
[2020-08-02] MEDS: FLUoxetine 20 MG CAPSULE 40 MG PO (13:25)
[2020-08-02] MEDS: HYDROMORPHONE 1 MG INJ IV (14:01)
--- NOTE | 2020-08-02 15:10 | CM.DPC ---
DCP Cont: Discussed patient during team rounds. Insulin drip was discontinued, and started on a clear liquid diet. Anticipate that patient may be able to discharge within the next day or two, depending on how he tolerates diet. P: DCP to continue to follow. Patient should be able to discharge home when medically stable. Anna Amezquita RN/Director Information
--- NOTE | 2020-08-02 17:49 | P.PN_ITS ---
Subjective Subjective Date Patient Seen: 08/02/20 Interval history: Nic Morrison is a 45-year-old male with a past medical history of hypertension, hyperlipidemia and hypertriglyceridemia, diabetes mellitus type 2, insulin using, GERD, and alcohol use disorder who presented with epigastric abdominal pain, nausea, and vomiting for 4 days. The patient is resting in bedside chair comfortably. He continues to have intermittent nausea controlled with antiemetics. His abdominal pain has resolved. He is tolerating clear liquid diet. He endorses headache. He denies shortness of breath, chest pain, abdominal pain, nausea, vomiting, fever, chills, dysuria, diarrhea or constipation. He is voiding and eliminating without difficulty. He is up ambulating without assistance. Exam Vital Signs (past 8 hours): - 08/02/20 12:00 08/02/20 16:00 Temperature 98.3 F 98.9 F Pulse Rate 107 H 55 L Respiratory Rate 15 20 Blood Pressure 139/63 125/58 L Pulse Oximetry 95 97 Oxygen Delivery Method Room Air Oxygen Flow Rate 0 Narrative Exam Narrative: General: Middle aged female lying in bed and in no acute distress, well- developed, well-nourished, appropriately interactive. HEENT: Normocephalic, atraumatic. External ears without defect. Pupils equal, round, and reactive to light. Anicteric sclerae, moist conjunctivae, and no lid lag. Oropharynx free of erythema and cobble stoning with moist mucosa. Neck: Supple with full range of motion. No lymphadenopathy or thyromegaly. Cardiovascular: Regular rate and rhythm without murmurs, rubs, or gallops appreciated. Pulmonary: Clear to auscultation bilaterally without crackles, wheezes, or rhonchi. Normal respiratory effort with no use of accessory muscles. Abdomen: Soft, mild tenderness to palpation in epigastrum, bowel tones present. nondistended. No hepatosplenomegaly or masses appreciated. Extremities: No clubbing, cyanosis, or edema. Skin: Normal temperature, turgor, and texture; no rash, ulcers, or subcutaneous nodules appreciated. Neurological: Cranial nerves grossly intact. Psychiatric: Normal mood and affect. Alert and oriented to person, place, and time. Objective Labs Result Diagrams: 08/03/20 04:25 08/03/20 04:25 Labs: Laboratory Results - last 24 hr 1208/02/20 08/02/20 04:40 04:40 04:40 WBC 6.4 RBC 4.16 L Hgb 12.7 L Hct 37.3 L MCV 89.6 MCH 30.7 MCHC 34.2 RDW 12.8 Plt Count 154 Neut % (Auto) 56.1 Lymph % (Auto) 28.3 [place] % (Auto) 10.6 Eos % (Auto) 4.3 H Baso % (Auto) 0.7 Neut # (Auto) 3600 Lymph # (Auto) 1800 [place] # (Auto) 700 Eos # (Auto) 300 Baso # (Auto) 0 Sodium 123 L Potassium 3.8 Chloride 92 L Carbon Dioxide 30 BUN 23 H Creatinine 1.53 H Estimated GFR 49.0 L BUN/Creatinine Ratio 15.0 Glucose 144 H Calcium 8.5 Magnesium 1.8 Total Bilirubin 0.4 Conjugated Bilirubin 0.0 Unconjugated Bilirubin 0.2 AST 34 ALT 31 Alkaline Phosphatase 79 Total Protein 5.9 L Albumin 3.1 L Globulin 2.8 Albumin/Globulin Ratio 1.1 Triglycerides 620 H Lipase 08/02/20 04:40 WBC RBC Hgb Hct MCV MCH MCHC RDW Plt Count Neut % (Auto) Lymph % (Auto) [place] % (Auto) Eos % (Auto) Baso % (Auto) Neut # (Auto) Lymph # (Auto) [place] # (Auto) Eos # (Auto) Baso # (Auto) Sodium Potassium Chloride Carbon Dioxide BUN Creatinine Estimated GFR BUN/Creatinine Ratio Glucose Calcium Magnesium Total Bilirubin Conjugated Bilirubin Unconjugated Bilirubin AST ALT Alkaline Phosphatase Total Protein Albumin Globulin Albumin/Globulin Ratio Triglycerides Lipase 295 PFSH Medical History Acute kidney injury Arthritis BPH w urinary obs/LUTS Chronic GERD Depression Diabetes mellitus Erectile dysfunction Erectile dysfunction Gastritis Hyperlipidemia Hypertension Pancreatitis Social History household members: spouse Smoking Status: Former smoker Assessment & Plan Assessment & Plan narrative: Nic Morrison is a 45-year-old male with a past medical history of hypertension, hyperlipidemia and hypertriglyceridemia, diabetes mellitus type 2, insulin using, GERD, and alcohol use disorder who presented with epigastric abdominal pain, nausea, and vomiting for 4 days. 1. Acute pancreatitis, present on admission. Resolved. -Likely multifactorial secondary to alcohol use and hypertriglyceridemia. Patient has 1 prior episode of pancreatitis secondary to alcohol use. -Initial lipase to be 3490. His lipase trended down to normal 295. -Initial triglyceride level is 887 which is likely elevated in the setting of insulin deficiency as he has not been taking any of his diabetic medications. -Abdominal ultrasound demonstrated fatty liver and mild splenomegaly. -CT abdomen and pelvis with contrast demonstrated pancreas is small in size, wi thout pancreatic ductal dilatation, no peripancreatic inflammatory changes are seen, focal wall thickening seen involving the distal transverse colon and the splenic flexure of the colon with surrounding inflammatory change possibly nonspecific focal colitis versus mild pancreatitis. Noted splenic varices possibly indicative of portal hypertension. -Continued bowel rest with NPO and now slowly advancing diet to carbohydrate consistent with clear liquid which he has tolerated well. Continue normal saline at 125 mL/hr. -Continue pain control with Dilaudid 0.5 mg every 4 hours as needed and will consider starting long-acting pain medication as he tolerates diet. 2. Diabetes mellitus type 2, insulin, with HHS, present on admission. HHS resolved. -Initial blood glucose 791, AG 22, pH 7.36, lactate of 2.2. -Held metformin. -Discontinued insulin and D10 gtt once tolerating he advancement of diet. Restarted home insulin regimen with Lantus 50 units daily and 25 units daily at bedtime. -Continue [facility] blood glucose checks and high-dose correctional scale insulin. -Continue to slowly advance diet to carbohydrate consistent as above. 3. Hyponatremia, possibly acute on chronic, present on admission. Active. -Initial sodium level 121. Sodium level improved then declined again to 123 likely due to D10 gtt. -Held chlorthalidone and fluoxetine. -Restarted sodium chloride 125 mL/hr. -Continue to monitor sodium level and replete as necessary. 4. Acute kidney injury, possibly on chronic kidney disease, present on admission. Resolving. -Likely secondary to severe dehydration and NSAID use over the previous -Initial creatinine 2.37. Unclear baseline creatinine. Creatinine improved to 1.53. -Avoid nephrotoxic agents. Discontinued NSAIDs. -Continue to monitor creatinine daily 5. Acute hyperkalemia, present on admission. Resolved. -Likely related to insulin deficiency. -Initial potassium level 5.7 and improved with insulin gtt. -Continue to monitor potassium daily. 6. Hypertension, chronic, present on admission. Stable. -Continue home lisinopril 40 mg daily. Held chlorthalidone to avoid dehydration and hyponatremia. 7. Hyperlipidemia and hypertriglyceridemia, chronic, present on admission. Stable. -Continue atorvastatin 80 mg daily and fenofibrate 145 mg daily. 8. GERD, chronic, present on admission. Stable. -Continue home pantoprazole 40 mg daily. 9. Alcohol use disorder, chronic, present on admission. Stable. -Patient reports he drinks show two 16 oz beers 2 days a week on the weekends. Patient denies history of alcohol withdrawal, DTs or alcohol withdrawal seizures. -Discussed and recommended indefinite alcohol cessation. Code: Full, surrogate decision maker is the patient's DVT: SQ Heparin, SCDs Disposition: Patient likely to discharge the next 1-2 days if tolerating diet.
[2020-08-02] MEDS: SENNOSIDES 8.6 MG TABLET 17.2 MG PO (20:29)
[2020-08-02] MEDS: METOCLOPRAMIDE 10 MG/2 ML INJ 5 MG IV (22:00)
[2020-08-02] MEDS: MELATONIN 3 MG TABLET 6 MG PO (23:00)
[2020-08-03] VITALS: BP 112/55; PULSE 95; RESP 16; TEMP 36.8; O2SAT 98
[2020-08-03] MEDS: SODIUM CHLORIDE 0.9% 1,000 ML 125 ML IV (04:25)
[2020-08-03 05:01] VITALS: BP 116/67; PULSE 96; RESP 18; TEMP 37.2; O2SAT 96
[2020-08-03 05:01] LABS: Add Manual Diff / Slide Review NO; Basophils Absolute Auto 0 /uL (0-100); Basophils Percent Auto 0.4 % (0-2); Eosinophils Absolute Auto 200 /uL (0-450); Eosinophils Percent Auto 4.5 % (2-4); Hematocrit 35.7 % (41-53); Hemoglobin 12.4 g/dL (13.5-17.5); Lymphocytes Absolute Auto 1300 /uL (1100-4500); Lymphocytes Percent Auto 29.9 % (25-40); Mean Corpuscular HGB Conc 34.6 % (30-36); Mean Corpuscular Hemoglobin 30.8 PG (26-34); Monocytes Absolute Auto 400 /uL (0-900); Monocytes Percent Auto 9.9 % (3-14); Neutrophils Absolute Auto 2400 /uL (1500-7000); Neutrophils Percent Auto 55.3 % (50-75); Platelet Count 121 X10^3/uL (150-400); Red Blood Cell Count 4.01 X10^6/uL (4.5-5.9); White Blood Cell Count 4.3 X10^3/uL (4.5-11.0)
[2020-08-03 05:05] LABS: Alanine Aminotransferase 29 IU/L (<50); Albumin 3.1 g/dL (3.5-5.0); Albumin Globulin Ratio 1.2 (1.0-2.8); Alkaline Phosphatase 94 U/L (38-126); Aspartate Aminotransferase 30 IU/L (17-59); BUN Creatinine Ratio 16.5 (6-22); Bilirubin Total 0.7 mg/dL (0.2-1.3); Bilirubin Unconjugated 0.6 mg/dL (0.0-1.1); Blood Urea Nitrogen 26 mg/dL (9-20); Calcium 8.1 mg/dL (8.4-10.2); Carbon Dioxide 26 mmol/L (22-32); Chloride 97 mmol/L (98-107); Estimated Glomerular Filt Rate 47.2 mL/min (>60); Globulin 2.6 g/dL (1.7-4.1); Glucose 325 mg/dL (70-100); HEMOLYSIS < 15 (0-50); Magnesium 1.8 mg/dL (1.6-2.3); Potassium 4.3 mmol/L (3.4-5.1); Sodium 125 mmol/L (137-145); Total Protein 5.7 g/dL (6.3-8.2)
[2020-08-03 06:27] LABS: Triglycerides 700 mg/dL (35-150)
[2020-08-03 08:00] VITALS: BP 121/80; PULSE 87; RESP 17; TEMP 36.5; O2SAT 98
--- NOTE | 2020-08-03 09:16 | PM.DS.1 ---
History of Present Illness History of Present Illness Date Patient Seen: 07/30/20 Chief complaint: chest pains/nausea/stomach pains x3 days Narrative: Written by Dr. Mazariegos: Nic Morrison is a 45-year-old male with a past medical history of type 2 diabetes, hypertension, hyperlipidemia and hypertriglyceridemia, GERD, alcohol use who presented with epigastric abdominal pain, nausea, and vomiting for the past 4 days. Patient states that he had some marijuana approximately 5 days ago, afterwards he developed subsequent abdominal pain, nausea and vomiting which he actually states is fairly typical after he smokes. He then developed epigastric pain, nonradiating, stabbing like, and fairly constant. This continued for the next 4 days. Because of this nausea and vomiting he had not been taking any medications for his diabetes, but was taking Zofran an Advil to try and help his symptoms. He had an electronic visit with a provider today, he checked his glucose in his meter read high and he was sent to the emergency room for further evaluation. He does report feeling sweaty during his episodes of emesis, but denies any chest pain, shortness of breath, lower extremity edema, orthopnea. His belly does feel slightly bloated and he also endorses a mild cough. He denies any urinary frequency. His states that over the past week or so he has been extremely fatigued and sleeping a lot during the day. Patient has a previous history of pancreatitis, which he states was from alcohol as he used to drink more. He also states that he has had a triglyceride level over 3000 in the past but does not take any specific therapy for triglycerides, only a statin. He currently drinks an occasional beer (maybe two) with dinner most nights but not every night. 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 In the emergency room, patient was hypertensive, tachycardic, and mildly tachypneic. Oxygen saturation was normal on room air. Laboratory evaluation revealed leukocytosis with a white count of 12.5, 89% neutrophils, but no other abnormalities. ABG showed a bicarb of 19, pH of 7.36, and a pCO2 of 34. Chemistries revealed a sodium of 121 with a glucose of 791. Corrected this comes out to a sodium of 132. Potassium was elevated at 5.7, chloride was 79, CO2 was 20, BUN 61, creatinine 2.37. Lactic acid was 2.2. There were no elevations in his transaminase levels of bilirubin. Troponin was within normal limits at 0.33. Lipase was 3490. Procalcitonin was 0.2 weight. Triglyceride level was 887. UA did not show evidence of infection. Ketones were elevated at 6.54. COVID-19 testing was negative. EKG ordered but is currently pending. Patient will be admitted to the ICU for an insulin drip for treatment of hypertriglyceridemia pancreatitis as well as possible DKA, although this is mild. Discharge Providers Provider Date of admission: 07/30/20 18:05 Discharge Date: 08/03/20 Primary care physician: Azul Dunbar DO Discharge provider: Joanna Elliott DO Summary Hospital Course Discharge Diagnosis: 1. Acute pancreatitis, present on admission. Resolved. 2. Diabetes mellitus type 2, insulin using, with HHS, present on admission. HHS resolved. 3. Hyponatremia, possibly acute on chronic, present on admission. Active. 4. Acute kidney injury, on chronic kidney disease stage 3, present on admission. Resolving. 5. Acute hyperkalemia, present on admission. Resolved. 6. Hypertension, chronic, present on admission. Stable. 7. Hyperlipidemia and hypertriglyceridemia, chronic, present on admission. Stable. 8. GERD, chronic, present on admission. Stable. 9. Alcohol use disorder, chronic, present on admission. Stable. Hospital Course: Nic Morrison is a 45-year-old male with a past medical history of hypertension, hyperlipidemia and hypertriglyceridemia, diabetes mellitus type 2, insulin using, GERD, and alcohol use disorder who presented with epigastric abdominal pain, nausea, and vomiting for 4 days. 1. Acute pancreatitis, present on admission. Resolved. -Patient presented with epigastric abdominal pain, nausea and vomiting x4 days. -Likely alcohol use, as well as, hypertriglyceridemia due to uncontrolled diabetes. Patient has 1 prior episode of pancreatitis secondary to alcohol use. -Initial lipase to be 3490. Lipase trended down to normal 295. -Initial triglyceride level is 887 likely due to uncontrolled diabetes. Triglycerides slightly improved to 700. -Abdominal ultrasound demonstrated fatty liver and mild splenomegaly. -CT abdomen and pelvis with contrast demonstrated pancreas is small in size, without pancreatic ductal dilatation, no peripancreatic inflammatory changes are seen, focal wall thickening seen involving the distal transverse colon and the splenic flexure of the colon with surrounding inflammatory change possibly nonspecific focal colitis versus mild pancreatitis. Noted splenic varices possibly indicative of portal hypertension. -Continued supportive treatment with IV fluid hydration, bowel rest and pain control. Patient was NPO status for several days then slowly advanced diet to low-fat carbohydrate consistent which he tolerated well. Continued IV fluid hydration until adequately hydrated then discontinued. Continued pain control with Dilaudid 0.5 mg IV every 4 hours as needed for moderate to severe pain. 2. Diabetes mellitus type 2, insulin using, with HHS, present on admission. HHS resolved. -Hemoglobin A1c 10.1% indicative of poor glycemic control. -Initial blood glucose 791, AG 22, pH 7.36, lactate of 2.2. -Held metformin during hospitalization and restarted at time of discharge. -Discontinued insulin and D10 gtt once he tolerated advancement of diet. Restarted home insulin regimen with Lantus 50 units daily at bedtime. -Continued [facility] blood glucose checks and high-dose correctional scale insulin. -Continued to slowly advance diet to low-fat carbohydrate consistent as above. 3. Hyponatremia, possibly acute on chronic, present on admission. Active. -Initial sodium level 121 likely due to nausea, vomiting, dehydration and alcohol use. Sodium level improved to 132 then trended back down to 123 likely due to D10 gtt. Sodium level now improving 125. -Discontinue chlorthalidone. Could consider discontinuing fluoxetine in future if sodium level remains low and will defer to PCP. -Continued normal saline until adequately hydrated then discontinued. -Continued to monitor sodium level and replete as necessary. Recommend repeat sodium level in 1 week. 4. Acute kidney injury, on chronic kidney disease stage 3, present on admission. Resolving. -Likely secondary to severe dehydration, NSAID use, and diuretic with chlorthalidone. Of note, patient has solitary kidney. -Initial creatinine 2.37. Unclear baseline creatinine. Creatinine improved to 1.53. -Avoided nephrotoxic agents. Discontinued NSAIDs. Discontinued chlorthalidone. Recommend discontinuation of PPI in the next 4 weeks and will defer to PCP. -Continued to monitor creatinine daily. -Recommended outpatient referral to Nephrology due to solitary kidney and CKD stage 3. 5. Acute hyperkalemia, present on admission. Resolved. -Likely related to insulin deficiency. -Initial potassium level 5.7 and improved with insulin gtt. -Continued to monitor potassium daily. 6. Hypertension, chronic, present on admission. Stable. -Continued home lisinopril 40 mg daily. Discontinued chlorthalidone to avoid dehydration and hyponatremia. 7. Hyperlipidemia and hypertriglyceridemia, chronic, present on admission. Stable. -Continued atorvastatin 80 mg daily and started and continued fenofibrate 145 mg daily and discharged with prescription. 8. GERD, chronic, present on admission. Stable. -Continued home pantoprazole 40 mg daily. Recommend patient be switched to H2 antagonist In future per PCP. 9. Alcohol use disorder, chronic, present on admission. Stable. -Patient reports he drinks two 16 oz beers 2 days a week on the weekends. Patient denies history of alcohol withdrawal, DTs or alcohol withdrawal seizures. Patient does have a prior episode of pancreatitis related to alcohol use. -Continued home pantoprazole 40 mg daily as above. -Discussed and recommended indefinite alcohol cessation. Exam Vital Signs (past 8 hours): - 08/03/20 05:01 08/03/20 08:00 Temperature 99.0 F 97.7 F Pulse Rate 96 H 87 Respiratory Rate 18 17 Blood Pressure 116/67 121/80 Pulse Oximetry 96 98 Oxygen Delivery Method Room Air Oxygen Flow Rate 0 Narrative Exam Narrative: General: Middle aged female lying in bed and in no acute distress, well-developed, well-nourished, appropriately interactive. HEENT: Normocephalic, atraumatic. External ears without defect. Pupils equal, round, and reactive to light. Anicteric sclerae, moist conjunctivae, and no lid lag. Oropharynx free of erythema and cobble stoning with moist mucosa. Neck: Supple with full range of motion. No lymphadenopathy or thyromegaly. Cardiovascular: Regular rate and rhythm without murmurs, rubs, or gallops appreciated. Pulmonary: Clear to auscultation bilaterally without crackles, wheezes, or rhonchi. Normal respiratory effort with no use of accessory muscles. Abdomen: Soft, bowel sounds present, nontender, nondistended. No hepatosplenomegaly or masses appreciated. Extremities: No clubbing, cyanosis, or edema. Skin: Normal temperature, turgor, and texture; no rash, ulcers, or subcutaneous nodules appreciated. Neurological: Cranial nerves grossly intact. Psychiatric: Normal mood and affect. Alert and oriented to person, place, and time. Objective Labs Result Diagrams: 08/03/20 04:25 08/03/20 04:25 Labs: Laboratory Results - last 24 hr 08/03/20 08/03/20 08/03/20 04:25 04:25 04:25 WBC 4.3 L RBC 4.01 L Hgb 12.4 L Hct 35.7 L MCV 89.0 MCH 30.8 MCHC 34.6 RDW 13.0 Plt Count 121 L Neut % (Auto) 55.3 Lymph % (Auto) 29.9 Swain % (Auto) 9.9 Eos % (Auto) 4.5 H Baso % (Auto) 0.4 Neut # (Auto) 2400 Lymph # (Auto) 1300 Swain # (Auto) 400 Eos # (Auto) 200 Baso # (Auto) 0 Sodium 125 L Potassium 4.3 Chloride 97 L Carbon Dioxide 26 BUN 26 H Creatinine 1.58 H Estimated GFR 47.2 L BUN/Creatinine Ratio 16.5 Glucose 325 H D Calcium 8.1 L Magnesium 1.8 Total Bilirubin 0.7 Conjugated Bilirubin 0.0 Unconjugated Bilirubin 0.6 AST 30 ALT 29 Alkaline Phosphatase 94 Total Protein 5.7 L Albumin 3.1 L Globulin 2.6 Albumin/Globulin Ratio 1.2 Triglycerides 700 [facility] Medical History Acute kidney injury Arthritis BPH w urinary obs/LUTS Chronic GERD Depression Diabetes mellitus Erectile dysfunction Erectile dysfunction Gastritis Hyperlipidemia Hypertension Pancreatitis Social History household members: spouse Smoking Status: Former smoker Discharge Plan Discharge Plan Patient Disposition: Home Provider Discharge Comment: You are being discharged home. You had pancreatitis which has been treated with bowel rest and IV fluid hydration. Your pancreatitis was due to alcohol use, as well as high triglycerides from uncontrolled diabetes. Please abstain from alcohol indefinitely. Your hemoglobin A1c was 10.1%. Continue your insulin as previously prescribed and diabetic management with your PCP. Continue to consume a low-fat low-carbohydrate diet. You may slowly advance your diet from soft to normal over the next several days. You have been started on a medication called fenofibrate 145 mg daily to help lower your triglycerides in addition to your atorvastatin. Overall, optimizing your diabetic blood glucose control will be the most beneficial in lowering your triglycerides. You have a solitary kidney and stage 3 kidney disease and recommend being referred to Nephrology (kidney specialist) to monitor your kidney function and prevent advancing disease. Do not use NSAIDs (ibuprofen, naproxen, meloxicam, indomethacin, etc.). You also should be switched to another medication to treat acid reflux in the future other than proton pump inhibitor class of medication (pantoprazole) as these medications can lead to kidney disease, heart attack and stroke. Your sodium level was low likely due to nausea, vomiting, dehydration, alcohol use, and medications. Your chlorthalidone has been discontinued and if your sodium level remains low with repeat labs in 1 week then would recommend discontinuing fluoxetine as well. Please follow-up with your primary care physician, Dr. Dunbar, in next 1 week regarding your hospitalization, repeat lab work, and referral to Nephrology. Discharge orders & Medications Prescriptions: New fenofibrate nanocrystallized [Tricor] 145 mg Tablet 145 mg PO DAILY Qty: 30 RF: 0 Continued fluoxetine 40 mg capsule 40 mg PO DAILY RF: 0 atorvastatin 80 mg tablet 80 mg PO DAILY RF: 0 Lantus Solostar U-100 Insulin 100 unit/mL (3 mL) insulin pen 50 unit SUBCUT QPM RF: 0 metformin 500 mg tablet 500 mg PO BID RF: 0 insulin aspart U-100 [Novolog Flexpen U-100 Insulin] 100 unit/mL (3 mL) insulin pen See Rx Instructions .ROUTE .COMPLEX PRN (Reason: Hyperglycemia) RF: 0 pantoprazole 40 mg tablet,delayed release (DR/EC) 40 mg PO QAM RF: 0 lisinopril 40 mg tablet 40 mg PO DAILY RF: 0 Discontinued chlorthalidone 25 mg tablet 25 mg PO DAILY RF: 0 Follow up/Referrals: Azul Dunbar, [Primary Care Provider] - 1 Week Diet/Activity/Treatments Diet: Diet as Tolerated, Carb-consistent/Diabetic, Low-fat, Low-sodium and Low-cholesterol Activity: Activity as tolerated Visit Report/Discharge Packet Instructions: The Mediterranean Diet and Good Health, Fat-Restricted Diet, DI for Pancreatitis Discharge Data Primary Care Provider: Azul Dunbar
[2020-08-03] MEDS: INSULIN ASPART 100 UNIT/ML INSULN PEN SUBCUT (09:26)
[2020-08-03] MEDS: LIPASE/PROTEASE/AMYLASE 5/17/24 CAP PO (09:27)
[2020-08-03] MEDS: ATORVASTATIN 20 MG TABLET 80 MG PO (09:27)
[2020-08-03] MEDS: HEPARIN 5,000 UNIT/ML VIAL 5000 UNIT SUBCUT (09:28)
[2020-08-03] MEDS: FENOFIBRATE 145 MG TABLET PO (09:28)
[2020-08-03] MEDS: PANTOPRAZOLE 40 MG VIAL IV (09:30)
[2020-08-03] MEDS: INSULIN GLARGINE 100 UNIT/ML 3ML PEN 50 UNIT SUBCUT (09:30)
[2020-08-03] MEDS: lisinopriL 20 MG TABLET 40 MG PO (09:33)
[2020-08-03 12:00] VITALS: BP 146/67; PULSE 90; RESP 18; TEMP 36.3; O2SAT 98
--- NOTE | 2020-08-03 12:23 | CM.DPC ---
DCP: continued: Pt now with d/c to home orders. His is on her way. Home today. PCP followup
--- NOTE | 2020-08-03 13:12 | PC.NURSE ---
AM shift Pt is A/o x4, reports improved pain control and no nausea at present. Tolerating ADA diet. CBG continue to be elevated. DC teaching provided, ETOH abstinence, low fat diet, and follow up appt and labs next week. IV removed, Pt showered and d/c to and private vehicle. All questions clarified prior to d/c.
== END 2020-08-03 13:15 | disposition home or self-care (01) | DRG 438 ==
LOC: ED 17:56 → AC 18:07 → ICU 07-31 09:18
PROVIDERS: Internal Medicine; Nurse Practitioner Adult Health; Nurse Practitioner Family; Admitting Provider Internal Medicine; Emergency Provider Emergency Medicine; PCP Family Medicine; Referring Provider Emergency Medicine; Visit Provider Internal Medicine
DX: K85.20 Alcohol induced acute pancreatitis without necrosis or infection (principal); E11.00 Type 2 diabetes mellitus with hyperosmolarity without nonketotic hyperglycemic-hyperosmolar coma (NKHHC); E87.1 Hypo-osmolality and hyponatremia; N17.9 Acute kidney failure, unspecified; E11.65 Type 2 diabetes mellitus with hyperglycemia; Z79.4 Long term (current) use of insulin; E86.0 Dehydration; Z72.89 Other problems related to lifestyle; E78.1 Pure hyperglyceridemia; F32.9 Major depressive disorder, single episode, unspecified; Z20.828 Contact with and (suspected) exposure to other viral communicable diseases
CPT/HCPCS: 36415; 36600; 71045; 74177; 76700; 80048; 80053; 80061; 80076; 81001; 81003; 81015; 82009; 82550; 82553; 82805; 82962; 83036; 83605; 83690; 83735; 84145; 84443; 84478; 84484; 85025; 85610; 85730; 87040; 87635; 87797; 93005; 96361; 96365; 96375; 99284; 99291; 99292; A9270; C9113; J1170; J1644; J2270; J2405; J2765; Q9967

== ENCOUNTER → 2021-07-15 11:46 | Outpatient (CLI) | payer OTHER, SELFPAY ==
[2020-07-30 20:41] VITALS: BMI 35.0
[2021-07-15 14:43] LABS: COVID19 -Nasal RAPID Negative (Negative)
== END ==
PROVIDERS: PCP Family Medicine; Visit Provider Nurse Practitioner Family
DX: Z20.822 Contact with and (suspected) exposure to COVID-19 (principal); J02.9 Acute pharyngitis, unspecified; R43.2 Parageusia
CPT/HCPCS: 87635

== ENCOUNTER 2021-08-11 09:18 | Emergency (ER) | payer OTHER, SELFPAY ==
[2021-08-11] VITALS (12 sets, daily range): BP systolic 179–220; BP diastolic 86–110; PULSE 92–104; RESP 16–30; TEMP 36.5; O2SAT 95–100; BMI 35.0; BMI 41.0
[2021-08-11] MEDS: ONDANSETRON 4 MG/2 ML INJ IV (10:25)
[2021-08-11] MEDS: SODIUM CHLORIDE 0.9% 1,000 ML 125 ML IV (10:25)
[2021-08-11] MEDS: HYDROMORPHONE 1 MG INJ IV ×2 (10:25→11:27)
--- NOTE | 2021-08-11 10:28 | ED.GENADULT ---
HPI - General Adult General Chief complaint: Abdominal Pain Stated complaint: abd.pain Time Seen by Provider: 08/11/21 10:17 Source: patient Mode of arrival: Family Vehicle History of Present Illness HPI narrative: Patient is a 46-year-old male. Does have a history of alcohol abuse. Has had pancreatitis in the past secondary to his alcohol use. Has not drank for the past several months. Has been smoking marijuana in the afternoons. For the past couple days has had upper abdominal discomfort and nausea and vomiting. He states that it feels very similar to his prior episodes of pancreatitis. No fevers. No chest pain. No shortness of breath. Related Data Home Medications Medication Instructions Recorded Confirmed atorvastatin 80 mg tablet 80 mg PO DAILY 04/20/20 07/15/21 fluoxetine 40 mg capsule 40 mg PO DAILY 04/20/20 07/15/21 insulin glargine 100 unit/mL (3 50 unit SUBCUT QPM 04/20/20 07/15/21 mL) subcutaneous pen (Lantus Solostar U-100 Insulin) metformin 500 mg tablet 500 mg PO BID 04/20/20 07/15/21 lisinopril 40 mg tablet 40 mg PO DAILY 04/24/20 07/15/21 insulin aspart U-100 100 unit/mL See Rx Instructions .ROUTE 08/03/20 07/15/21 (3 mL) subcutaneous pen (Novolog .COMPLEX PRN Flexpen U-100 Insulin aspart) pantoprazole 40 mg tablet,delayed 40 mg PO QAM 08/03/20 07/15/21 release Previous Rx's Medication Instructions Recorded fenofibrate nanocrystallized 145 145 mg PO DAILY #30 tab 08/03/20 mg tablet (Tricor) metoclopramide HCl 10 mg tablet 10 mg PO Q6H PRN #10 tab 08/11/21 (Reglan) Allergies Allergy/AdvReac Type Severity Reaction Status Date / Time No Known Drug Allergies Allergy Verified 07/15/21 12:01 Review of Systems Constitutional Constitutional: Denies fever(s) Cardiovascular Cardiovascular: Reports as per HPI and Reports system reviewed and no additional complaints, except as documented Respiratory Respiratory: Reports as per HPI and Reports system reviewed and no additional complaints, except as documented Gastrointestinal Gastrointestinal: Reports as per HPI and Reports system reviewed and no additional complaints, except as documented Genitourinary Genitourinary: Reports system reviewed and no additional complaints, except as documented Integumentary/Breasts Skin/Breast: Reports system reviewed and no additional complaints, except as documented Neurologic Neurologic: Reports system reviewed and no additional complaints, except as documented Hematologic/Lymphatic On Anticoagulants: No Patient History Medical History Acute kidney injury Arthritis BPH w urinary obs/LUTS Chronic GERD Depression Diabetes mellitus Erectile dysfunction Erectile dysfunction Gastritis Hyperlipidemia Hypertension Pancreatitis Social History household members: spouse Smoking Status: Former smoker Smoking Status: Former smoker tobacco type: cigarettes alcohol intake frequency: 0-2 drinks per day Substance Use Type: marijuana Exam Initial Vital Signs Initial Vital Signs: Vital Signs Pulse Rate 104 H 08/11/21 10:01 Respiratory Rate 23 08/11/21 10:01 Pulse Oximetry 100 08/11/21 10:01 Const General: cooperative, well developed and well groomed Limitations: mental status not altered HENMT Head: normal to inspection and normocephalic Eyes General: appearance normal, both eyes and all related structures Resp Effort & Inspection: normal respiratory effort Auscultation: clear to auscultation bilaterally Cardio Rate: regular rate Rhythm: regular rhythm GI Inspection: non-distended Palpation: soft and tender (Epigastric left upper) Skin General: no rashes or lesions noted Neuro General: patient alert, patient awake and moves all extremities Extrem General: capillary refill normal Psych Appearance: grossly normal and well kempt Course Orders Ordered: ED Orders 08/11/21 10:15 Acetaminophen Stat Basic Metabolic Panel Stat COVID19 - ADMIT ([employer] swab/PCR) Stat Complete Blood Count AUTO DIFF Stat Ethanol (ETOH) Stat Hepatic (Liver) Panel Stat Lactate (Lactic Acid) Stat Lipase Stat Procalcitonin Stat Troponin & CK Cardiac Panel Stat 08/11/21 10:19 EKG-12 Lead Stat 08/11/21 11:04 CT abdomen pelvis wo con Stat Sodium Chloride (Normal Saline 0.9%) 1,000 mls @ 125 mls/hr IV CONT ROSARIO Last Infusion: 08/11/21 12:40 Dose: 125 mls/hr Documented by: Infusion: 08/11/21 11:11 Dose: 0 mls/hr Documented by: Admin: 08/11/21 10:25 Dose: 125 mls/hr Documented by: CHILANGO Discontinued Medications Hydromorphone HCl (Hydromorphone 1 Mg Inj) 1 mg IV NOW ONE Stop: 08/11/21 10:19 Last Admin: 08/11/21 10:25 Dose: 1 mg Documented by: CHILANGO Hydromorphone HCl (Hydromorphone 1 Mg Inj) 1 mg IV NOW ONE Stop: 08/11/21 11:24 Last Admin: 08/11/21 11:27 Dose: 1 mg Documented by: AKI Sodium Chloride (Normal Saline 0.9%) 1,000 mls @ 1,000 mls/hr IV BOLUS ONE Stop: 08/11/21 12:07 Last Infusion: 08/11/21 12:40 Dose: 0 mls/hr Documented by: Admin: 08/11/21 11:11 Dose: 1,000 mls/hr Documented by: AKI Metoclopramide HCl (Metoclopramide 10 Mg/2 Ml Inj) 10 mg IV NOW ONE Stop: 08/11/21 11:05 Last Admin: 08/11/21 11:11 Dose: 10 mg Documented by: AKI Ondansetron HCl (Ondansetron 4 Mg/2 Ml Inj) 4 mg IV NOW ONE Stop: 08/11/21 10:19 Last Admin: 08/11/21 10:25 Dose: 4 mg Documented by: CHILANGO Vital Signs Vital signs: Vital Signs - 8 hr 08/11/21 10:01 08/11/21 10:14 08/11/21 10:21 Temperature 97.7 F Pulse Rate 104 H 103 H 104 H Respiratory Rate 23 30 H 24 Blood Pressure 220/105 H 194/89 H Pulse Oximetry 100 100 08/11/21 10:30 08/11/21 10:31 08/11/21 11:00 Temperature Pulse Rate 101 H 97 H Respiratory Rate 22 19 Blood Pressure 217/102 H 201/110 H Pulse Oximetry 08/11/21 11:30 08/11/21 11:40 08/11/21 12:08 Temperature Pulse Rate 97 H 92 H 104 H Respiratory Rate 26 H 22 Blood Pressure 204/110 H 204/110 H Pulse Oximetry 98 08/11/21 12:10 08/11/21 12:30 08/11/21 13:00 Temperature Pulse Rate 101 H 95 H 95 H Respiratory Rate 16 20 18 Blood Pressure 203/96 H 184/86 H 179/87 H Pulse Oximetry 97 95 96 Medical Decision Making Lab Data Lab results reviewed: Yes I reviewed the patient's lab results. Result diagrams: 08/11/21 10:15 08/11/21 10:15 Labs: Lab Results 08/11/21 08/11/21 08/11/21 Range/Units 10:15 10:15 10:15 WBC 7.6 (4.5-11.0) X10^3/uL RBC 5.08 (4.5-5.9) X10^6/uL Hgb 15.4 (13.5-17.5) g/dL Hct 45.0 (41-53) % MCV 88.5 (80-100) fL MCH 30.4 (26-34) PG MCHC 34.3 (30-36) % RDW 13.6 (11.6-14.8) % Plt Count 209 (150-400) X10^3/uL Neut % (Auto) 84.4 H (50-75) % Lymph % (Auto) 10.2 L (25-40) % [place] % (Auto) 4.6 (3-14) % Eos % (Auto) 0.4 L (2-4) % Baso % (Auto) 0.4 (0-2) % Neut # (Auto) 6400 (2978-7270) /uL Lymph # (Auto) 800 L (7554-6151) /uL [place] # (Auto) 300 (0-900) /uL Eos # (Auto) 0 (0-450) /uL Baso # (Auto) 0 (0-100) /uL Sodium 138 (137-145) mmol/L Potassium 4.3 (3.4-5.1) mmol/L Chloride 99 (98-107) mmol/L Carbon Dioxide 20 L (22-32) mmol/L BUN 36 H (9-20) mg/dL Creatinine 2.36 H (0.66-1.25) mg/dL Estimated GFR 29.6 L (>60) mL/min BUN/Creatinine Ratio 15.3 (6-22) Glucose 275 H (70-100) mg/dL Lactate 2.8 H (0.7-2.1) mmol/L Calcium 10.7 H (8.4-10.2) mg/dL Total Bilirubin (0.2-1.3) mg/dL Conjugated Bilirubin (0.0-0.3) md/dL Unconjugated Bilirubin (0.0-1.1) mg/dL AST (17-59) IU/L ALT (<50) IU/L Alkaline Phosphatase (38-126) U/L Total Creatine Kinase (55-170) U/L CK-MB (CK-2) (<2.37) ng/mL CK-MB (CK-2) Rel Index (1.5-5.0) % Troponin I (0.01-0.034) ng/mL Total Protein (6.3-8.2) g/dL Albumin (3.5-5.0) g/dL Globulin (1.7-4.1) g/dL Albumin/Globulin Ratio (1.0-2.8) Lipase (23-300) U/L Procalcitonin (<0.5) ng/mL Acetaminophen < 10 L (10-30) ug/mL Ethyl Alcohol < 10 ( - 10) mg/dL SARS-CoV-2 (PCR) (Negative) 08/11/21 08/11/21 Range/Units 10:15 10:15 WBC (4.5-11.0) X10^3/uL RBC (4.5-5.9) X10^6/uL Hgb (13.5-17.5) g/dL Hct (41-53) % MCV (80-100) fL MCH (26-34) PG MCHC (30-36) % RDW (11.6-14.8) % Plt Count (150-400) X10^3/uL Neut % (Auto) (50-75) % Lymph % (Auto) (25-40) % [place] % (Auto) (3-14) % Eos % (Auto) (2-4) % Baso % (Auto) (0-2) % Neut # (Auto) (3252-0652) /uL Lymph # (Auto) (5322-5585) /uL [place] # (Auto) (0-900) /uL Eos # (Auto) (0-450) /uL Baso # (Auto) (0-100) /uL Sodium (137-145) mmol/L Potassium (3.4-5.1) mmol/L Chloride (98-107) mmol/L Carbon Dioxide (22-32) mmol/L BUN (9-20) mg/dL Creatinine (0.66-1.25) mg/dL Estimated GFR (>60) mL/min BUN/Creatinine Ratio (6-22) Glucose (70-100) mg/dL Lactate (0.7-2.1) mmol/L Calcium (8.4-10.2) mg/dL Total Bilirubin 1.1 (0.2-1.3) mg/dL Conjugated Bilirubin 0.0 (0.0-0.3) md/dL Unconjugated Bilirubin 0.9 (0.0-1.1) mg/dL AST 36 (17-59) IU/L ALT 37 (<50) IU/L Alkaline Phosphatase 135 H (38-126) U/L Total Creatine Kinase 274 H (55-170) U/L CK-MB (CK-2) 2.17 (<2.37) ng/mL CK-MB (CK-2) Rel Index 0.8 L (1.5-5.0) % Troponin I < 0.012 (0.01-0.034) ng/mL Total Protein 8.4 H (6.3-8.2) g/dL Albumin 5.1 H (3.5-5.0) g/dL Globulin 3.3 (1.7-4.1) g/dL Albumin/Globulin Ratio 1.5 (1.0-2.8) Lipase 28 (23-300) U/L Procalcitonin 0.04 (<0.5) ng/mL Acetaminophen (10-30) ug/mL Ethyl Alcohol ( - 10) mg/dL SARS-CoV-2 (PCR) Negative (Negative) Point of Care Testing Glucose POC 228 Point of care testing: Point of Care Testing Glucose POC [address] scan - abdomen/pelvis: Radiologist's Impression: [address] [address] [address] Scan Report Signed Patient: Nic Morrison MR#: [id number] : 1975 Acct:[id number] Age/Sex: 46 / M Date of Service: 08/11/21 Loc: ED Accession Number: [id number] ?? Procedure: CT abdomen pelvis wo con Ordering Provider: Danilo Gómez D.O. PROCEDURE:? CT ABDOMEN PELVIS WO CON ? INDICATIONS:? Left-sided abdominal pain ? TECHNIQUE:? Noncontrast 5 mm thick sections acquired from the diaphragms to the symphysis.? 5 mm coronal and sagittal reformats were then performed.? For radiation dose reduction, the following was used:? automated exposure control, adjustment of mA and/or kV according to patient size.? ? COMPARISON:? None. ? FINDINGS: Image quality:? Excellent.? ? Lung bases:? Lung bases are clear.? Heart size is normal. ? Solid organs:? Liver: The liver has no mass or intrahepatic biliary ductal dilatation. Biliary: The gallbladder has no gallstones, pericholecystic fluid, gallbladder wall thickening, or surrounding inflammatory change. Pancreas: The pancreas has no mass or ductal dilatation. There is no surrounding inflammation. Spleen: Normal size. There are no masses. Adrenals: No hypertrophy or nodules. Kidneys:? Status post left nephrectomy.? The right kidney has no solid or cystic mass.? No calculus or hydronephrosis. ? Peritoneum and bowel:? The distal esophagus and stomach are normal.? The small bowel has a normal caliber and appearance. The terminal ileum is normal. The large bowel has a normal caliber and appearance.? The appendix is not definitively visualized; however there are no secondary findings to suggest acute appendicitis.? No free fluid or air.? There is a small hiatal hernia. ? Nodes and vessels:? No retroperitoneal or mesenteric adenopathy by size criteria.? The aorta has atherosclerosis with no aneurysmal dilatation. ? Miscellaneous:? There is a fat containing right inguinal hernia. ? PELVIS:? Genitourinary:? The bladder has no wall thickening or mass. No bladder calcifications. ? Bones:? Degenerative changes with no focal abnormality.? Degenerative disc disease at L4-5.? Pars defects of L4 with grade 1 anterolisthesis.? A chronic T12 anterior wedge deformity is seen.? No vertebral body compression fractures.? ? IMPRESSION:? 1. No acute abdominal or pelvic abnormality. 2. Small hiatal hernia. 3. Fat containing right inguinal hernia. 4. Solitary right kidney.? ? ? Dictated by: Raymon Monaco M.D. on 08/11/2021 at 11:43 ? ? Approved by: Raymon Monaco M.D. on 08/11/2021 at 11:51?? ECG Data Attestation: I personally reviewed and interpreted this ECG as follows: Interpretation: Sinus rhythm Ventricular rate 100 Left axis deviation Right bundle-branch block No ST T wave changes MDM Narrative Medical decision making narrative: Patient reports an improvement/resolution of symptoms after medication. I feel that it was the Reglan that was most likely the medicine that helped his symptoms. His lipase is unremarkable. His CT scan shows no signs of an acute surgical/infectious etiology. I have higher suspicion that his symptoms are either gastroparesis given his history of diabetes or potentially even cannabis hyperemesis given his daily use of marijuana. I did discuss this with him. Advised that he stop the marijuana or least cut back on the marijuana. Will send home with Sweetie. Informed him to talk with his primary doctor about the indications for referral to see Gastroenterology. He was given return precautions and follow-up instructions. He expressed understanding and agreement. Discharge Plan Departure Patient Disposition: Home Clinical Impression: Abdominal pain Instructions: DI for Abdominal Pain-Adult Activity Restrictions/Additional Instructions: Continue to take all of your medications as directed. I do recommend that you contact your primary doctor for follow-up to discuss the indications for referral to see Gastroenterology. Return to the emergency department for any new or worsening symptoms. Prescriptions: New metoclopramide HCl [Reglan] 10 mg tablet 10 mg PO Q6H PRN (Reason: nausea and vomiting) Qty: 10 0RF No Action fluoxetine 40 mg capsule 40 mg PO DAILY 0RF atorvastatin 80 mg tablet 80 mg PO DAILY 0RF Lantus Solostar U-100 Insulin 100 unit/mL (3 mL) insulin pen 50 unit SUBCUT QPM 0RF metformin 500 mg tablet 500 mg PO BID 0RF insulin aspart U-100 [Novolog Flexpen U-100 Insulin] 100 unit/mL (3 mL) insulin pen See Rx Instructions .ROUTE .COMPLEX PRN (Reason: Hyperglycemia) 0RF Rx Instructions: sliding scale based on carb intake fenofibrate nanocrystallized [Tricor] 145 mg Tablet 145 mg PO DAILY Qty: 30 0RF pantoprazole 40 mg tablet,delayed release (DR/EC) 40 mg PO QAM 0RF lisinopril 40 mg tablet 40 mg PO DAILY 0RF Referrals: Azul Dunbar DO [Primary Care Provider] -
[2021-08-11 10:35] LABS: Add Manual Diff / Slide Review NO; Basophils Absolute Auto 0 /uL (0-100); Basophils Percent Auto 0.4 % (0-2); Eosinophils Absolute Auto 0 /uL (0-450); Eosinophils Percent Auto 0.4 % (2-4); Hemoglobin 15.4 g/dL (13.5-17.5); Lymphocytes Absolute Auto 800 /uL (1100-4500); Lymphocytes Percent Auto 10.2 % (25-40); Mean Corpuscular HGB Conc 34.3 % (30-36); Mean Corpuscular Hemoglobin 30.4 PG (26-34); Mean Corpuscular Volume 88.5 fL (80-100); Monocytes Absolute Auto 300 /uL (0-900); Monocytes Percent Auto 4.6 % (3-14); Neutrophils Absolute Auto 6400 /uL (1500-7000); Neutrophils Percent Auto 84.4 % (50-75); Platelet Count 209 X10^3/uL (150-400); Red Blood Cell Count 5.08 X10^6/uL (4.5-5.9); Red Cell Distribution Width 13.6 % (11.6-14.8); White Blood Cell Count 7.6 X10^3/uL (4.5-11.0)
[2021-08-11 10:41] LABS: Alanine Aminotransferase 37 IU/L (<50); Albumin 5.1 g/dL (3.5-5.0); Albumin Globulin Ratio 1.5 (1.0-2.8); Alkaline Phosphatase 135 U/L (38-126); Aspartate Aminotransferase 36 IU/L (17-59); Bilirubin Total 1.1 mg/dL (0.2-1.3); Bilirubin Unconjugated 0.9 mg/dL (0.0-1.1); Creatine Kinase 274 U/L (55-170); Globulin 3.3 g/dL (1.7-4.1); HEMOLYSIS < 15 (0-50); Lactate (Lactic Acid) 2.8 mmol/L (0.7-2.1); Lipase 28 U/L (23-300); Total Protein 8.4 g/dL (6.3-8.2)
[2021-08-11 10:42] LABS: Acetaminophen < 10 ug/mL (10-30); BUN Creatinine Ratio 15.3 (6-22); Blood Urea Nitrogen 36 mg/dL (9-20); Calcium 10.7 mg/dL (8.4-10.2); Carbon Dioxide 20 mmol/L (22-32); Chloride 99 mmol/L (98-107); Estimated Glomerular Filt Rate 29.6 mL/min (>60); Ethanol (ETOH) < 10 mg/dL; Glucose 275 mg/dL (70-100); HEMOLYSIS < 15 (0-50); Potassium 4.3 mmol/L (3.4-5.1); Sodium 138 mmol/L (137-145)
[2021-08-11 10:52] LABS: Troponin I < 0.012 ng/mL (0.01-0.034)
[2021-08-11 10:56] LABS: CKMB % Relative Index 0.8 % (1.5-5.0); Creatine Kinase MB 2.17 ng/mL (<2.37)
[2021-08-11 10:57] LABS: Procalcitonin 0.04 ng/mL (<0.5)
--- NOTE | 2021-08-11 11:04 | DI.CT.S_ITS ---
PROCEDURE: CT ABDOMEN PELVIS WO CON INDICATIONS: Left-sided abdominal pain TECHNIQUE: Noncontrast 5 mm thick sections acquired from the diaphragms to the symphysis. 5 mm coronal and sagittal reformats were then performed. For radiation dose reduction, the following was used: automated exposure control, adjustment of mA and/or kV according to patient size. COMPARISON: None. FINDINGS: Image quality: Excellent. Lung bases: Lung bases are clear. Heart size is normal. Solid organs: Liver: The liver has no mass or intrahepatic biliary ductal dilatation. Biliary: The gallbladder has no gallstones, pericholecystic fluid, gallbladder wall thickening, or surrounding inflammatory change. Pancreas: The pancreas has no mass or ductal dilatation. There is no surrounding inflammation. Spleen: Normal size. There are no masses. Adrenals: No hypertrophy or nodules. Kidneys: Status post left nephrectomy. The right kidney has no solid or cystic mass. No calculus or hydronephrosis. Peritoneum and bowel: The distal esophagus and stomach are normal. The small bowel has a normal caliber and appearance. The terminal ileum is normal. The large bowel has a normal caliber and appearance. The appendix is not definitively visualized; however there are no secondary findings to suggest acute appendicitis. No free fluid or air. There is a small hiatal hernia. Nodes and vessels: No retroperitoneal or mesenteric adenopathy by size criteria. The aorta has atherosclerosis with no aneurysmal dilatation. Miscellaneous: There is a fat containing right inguinal hernia. PELVIS: Genitourinary: The bladder has no wall thickening or mass. No bladder calcifications. Bones: Degenerative changes with no focal abnormality. Degenerative disc disease at L4-5. Pars defects of L4 with grade 1 anterolisthesis. A chronic T12 anterior wedge deformity is seen. No vertebral body compression fractures. IMPRESSION: 1. No acute abdominal or pelvic abnormality. 2. Small hiatal hernia. 3. Fat containing right inguinal hernia. 4. Solitary right kidney. Dictated by: Raymon Monaco M.D. on 08/11/2021 at 11:43 Approved by: Raymon Monaco M.D. on 08/11/2021 at 11:51
[2021-08-11] MEDS: SODIUM CHLORIDE 0.9% 1,000 ML 1000 ML IV (11:11)
[2021-08-11] MEDS: METOCLOPRAMIDE 10 MG/2 ML INJ IV (11:11)
[2021-08-11 11:35] LABS: COVID19 - ADMIT (NP swab/PCR) Negative (Negative)
[2021-08-11 12:22] LABS: Reflexed Lactate in 2 Hours Y
--- NOTE | 2021-08-11 12:40 | PC.NURSE ---
Pt reports improvement of symptoms, no distress noted.
[2021-08-11 13:14] LABS: Lactate 2HR (Lactic Acid Rflx) 1.1 mmol/L (0.7-2.1)
== END 2021-08-11 13:25 | disposition home or self-care (01) ==
PROVIDERS: Emergency Provider Emergency Medicine; PCP Family Medicine
DX: R10.9 Unspecified abdominal pain (principal); Z20.822 Contact with and (suspected) exposure to COVID-19
CPT/HCPCS: 36415; 74176; 80048; 80076; 80320; 80329; 82550; 82553; 82962; 83605; 83690; 84145; 84484; 85025; 87635; 93005; C9803; G0480; J1170; J2405; J2765

== ENCOUNTER 2021-08-11 17:47 | Emergency (ER) | payer OTHER, SELFPAY ==
[2021-08-11] VITALS (10 sets, daily range): BP systolic 127–216; BP diastolic 67–117; PULSE 94–108; RESP 17–22; TEMP 36.5; O2SAT 92–100; BMI 35.0; BMI 39.5
[2021-08-11 18:54] LABS: Add Manual Diff / Slide Review NO; Basophils Absolute Auto 0 /uL (0-100); Basophils Percent Auto 0.4 % (0-2); Eosinophils Absolute Auto 0 /uL (0-450); Hematocrit 41.4 % (41-53); Hemoglobin 14.4 g/dL (13.5-17.5); Lymphocytes Absolute Auto 600 /uL (1100-4500); Mean Corpuscular HGB Conc 34.8 % (30-36); Mean Corpuscular Hemoglobin 30.7 PG (26-34); Mean Corpuscular Volume 88.2 fL (80-100); Monocytes Absolute Auto 200 /uL (0-900); Monocytes Percent Auto 2.9 % (3-14); Neutrophils Absolute Auto 7000 /uL (1500-7000); Neutrophils Percent Auto 88.7 % (50-75); Platelet Count 208 X10^3/uL (150-400); Red Blood Cell Count 4.69 X10^6/uL (4.5-5.9); Red Cell Distribution Width 13.7 % (11.6-14.8); White Blood Cell Count 7.9 X10^3/uL (4.5-11.0)
[2021-08-11] MEDS: ONDANSETRON 4 MG/2 ML INJ IV (19:04)
[2021-08-11 19:05] LABS: Alanine Aminotransferase 33 IU/L (<50); Albumin 4.9 g/dL (3.5-5.0); Albumin Globulin Ratio 1.6 (1.0-2.8); Alkaline Phosphatase 117 U/L (38-126); Aspartate Aminotransferase 34 IU/L (17-59); BUN Creatinine Ratio 17.9 (6-22); Bilirubin Total 0.7 mg/dL (0.2-1.3); Blood Urea Nitrogen 35 mg/dL (9-20); Calcium 10.1 mg/dL (8.4-10.2); Carbon Dioxide 17 mmol/L (22-32); Chloride 101 mmol/L (98-107); Estimated Glomerular Filt Rate 36.7 mL/min (>60); Globulin 3.1 g/dL (1.7-4.1); Glucose 294 mg/dL (70-100); HEMOLYSIS 27 (0-50); Lipase 24 U/L (23-300); Potassium 4.8 mmol/L (3.4-5.1); Sodium 137 mmol/L (137-145)
[2021-08-11] MEDS: SODIUM CHLORIDE 0.9% 1,000 ML 1000 ML IV ×2 (19:42→21:45)
--- NOTE | 2021-08-11 21:26 | ED_ITS ---
HPI - Abdominal Pain General Chief Complaint: Abdominal Pain Stated Complaint: here this morning, lots of pain Time Seen by Provider: 08/11/21 21:02 Source: patient and family Mode of arrival: Ambulatory History of Present Illness HPI narrative: Patient is a 46-year-old male history of insulin-dependent diabetes, hyperlipidemia, hypertension presenting for the 2nd time today with nausea vomiting abdominal pain. He was seen evaluated here earlier today had blood work and CT. He improved with Reglan and was discharged home with Reglan. However he states to soon as he stepped outside of the emergency department into the car he immediately felt nauseous again has been throwing up ever since. He admits to using marijuana daily except he quit for the last 4-[address] did not show any abnormality or evidence of DKA. To history of alcohol abuse and prior history of pancreatitis however he states that he has not had anything alcoholic to drink for the past several months. He denies any fever. He is actually complaining of some burning going up into his chest and epigastric area. But otherwise denies chest pain or palpitations no shortness breath. Related Data Home Medications Medication Instructions Recorded Confirmed atorvastatin 80 mg tablet 80 mg PO DAILY 04/20/20 07/15/21 fluoxetine 40 mg capsule 40 mg PO DAILY 04/20/20 07/15/21 insulin glargine 100 unit/mL (3 50 unit SUBCUT QPM 04/20/20 07/15/21 mL) subcutaneous pen (Lantus Solostar U-100 Insulin) metformin 500 mg tablet 500 mg PO BID 04/20/20 07/15/21 lisinopril 40 mg tablet 40 mg PO DAILY 04/24/20 07/15/21 insulin aspart U-100 100 unit/mL See Rx Instructions .ROUTE 08/03/20 07/15/21 (3 mL) subcutaneous pen (Novolog .COMPLEX PRN Flexpen U-100 Insulin aspart) pantoprazole 40 mg tablet,delayed 40 mg PO QAM 08/03/20 07/15/21 release Previous Rx's Medication Instructions Recorded fenofibrate nanocrystallized 145 145 mg PO DAILY #30 tab 08/03/20 mg tablet (Tricor) metoclopramide HCl 10 mg tablet 10 mg PO Q6H PRN #10 tab 08/11/21 (Reglan) Allergies Allergy/AdvReac Type Severity Reaction Status Date / Time No Known Drug Allergies Allergy Verified 07/15/21 12:01 Review of Systems Review of Systems Narrative: GENERAL: Denies chills, fatigue, malaise, fever, sweats, travel HEENT: Denies sinus pain, ear pain, sore throat, difficulty swallowing, neck pain RESPIRATORY: Denies dyspnea, cough, wheezing, hemoptysis, sputum. CARDIOVASCULAR: Denies chest pain, palpitations, orthopnea, edema GASTROINTESTINAL: See HPI : Denies dysuria, frequency, incontinence, hematuria, urinary retention, flank pain. MUSCULOSKELETAL: Denies weakness, joint pain, or bony pain SKIN: No rash, no erythema, no pruritus NEUROLOGIC: Denies weakness, dizziness, headache, numbness, change in speech, confusion PSYCHIATRIC: No concerning psychosocial issues. 12 point review of systems is negative except for those stated above and HPI Patient History Medical History Acute kidney injury Arthritis BPH w urinary obs/LUTS Chronic GERD Depression Diabetes mellitus Erectile dysfunction Erectile dysfunction Gastritis Hyperlipidemia Hypertension Pancreatitis Social History household members: spouse Smoking Status: Former smoker Smoking Status: Former smoker tobacco type: cigarettes alcohol intake frequency: 0-2 drinks per day Substance Use Type: marijuana Exam Initial Vital Signs Initial Vital Signs: Vital Signs Temperature 97.7 F 08/11/21 18:05 Pulse Rate 108 H 08/11/21 18:05 Respiratory Rate 20 08/11/21 18:05 Blood Pressure 216/113 H 08/11/21 18:05 Pulse Oximetry 99 08/11/21 18:05 GENERAL: 38-year-old male appears in pain and did not feel well HEENT: Head atraumatic,EOMI, pupils reactive, face symmetric, moist mucous membranes CARDIOVASCULAR: Regular rate and rhythm without murmurs, rubs or gallops. RESPIRATORY: Breath sounds equal bilaterally, no wheezes rales or rhonchi. ABDOMEN: Soft, mild epigastric pain no guarding or rebound negative right upper quadrant pain no Scott sign EXTREMITIES: Normal range of motion, no clubbing or edema. Neurovascularly intact NEUROLOGICAL: Alert and oriented x4.Normal gait and speech. SKIN: Warm, dry, no laceration, no petechiae, no rashes or lesions. Course Orders Ordered: ED Orders 08/11/21 18:48 CBC Auto Diff [Complete Blood Count AUTO DIFF] Stat CMP [Comprehensive Metabolic Panel] Stat Lipase Stat Troponin & CK Cardiac Panel Stat 08/11/21 21:36 EKG-12 Lead Stat 08/11/21 22:30 BMP [Basic Metabolic Panel] Stat Discontinued Medications Hydrocodone Bitart/Acetaminophen (Hydrocodone/Acet 5/325 Prepack) 1 bottle MISC SEEINSTR ONE Stop: 08/11/21 23:49 Last Admin: 08/11/21 23:56 Dose: 1 bottle Documented by: LATIA Hydromorphone HCl (Hydromorphone 1 Mg Inj) 1 mg IV NOW ONE Stop: 08/11/21 21:36 Last Admin: 08/11/21 21:45 Dose: 1 mg Documented by: MEGAN Sodium Chloride (Normal Saline 0.9%) 1,000 mls @ 1,000 mls/hr IV BOLUS ONE Stop: 08/11/21 20:34 Last Infusion: 08/11/21 20:54 Dose: 0 mls/hr Documented by: Admin: 08/11/21 19:42 Dose: 1,000 mls/hr Documented by: MEGAN Sodium Chloride (Normal Saline 0.9%) 1,000 mls @ 1,000 mls/hr IV BOLUS ONE Stop: 08/11/21 22:25 Last Infusion: 08/11/21 23:45 Dose: 0 mls/hr Documented by: Admin: 08/11/21 21:45 Dose: 1,000 mls/hr Documented by: MEGAN Sodium Chloride (Normal Saline 0.9%) 1,000 mls @ 1,000 mls/hr IV BOLUS ONE Stop: 08/11/21 22:34 Last Admin: 08/11/21 23:56 Dose: Not Given Documented by: LATIA Metoclopramide HCl (Metoclopramide 10 Mg/2 Ml Inj) 10 mg IV NOW ONE Stop: 08/11/21 21:36 Last Admin: 08/11/21 21:45 Dose: 10 mg Documented by: MEGAN Ondansetron HCl (Ondansetron 4 Mg/2 Ml Inj) 4 mg IV NOW ONE Stop: 08/11/21 18:34 Last Admin: 08/11/21 19:04 Dose: 4 mg Documented by: KBRYERS Ondansetron HCl (Ondansetron 4 Mg Odt Prepack) 1 bottle MISC SEEINSTR ONE Stop: 08/11/21 23:47 Last Admin: 08/11/21 23:56 Dose: 1 bottle Documented by: LATIA Pantoprazole Sodium (Pantoprazole 40 Mg Vial) 40 mg IV NOW ONE Stop: 08/11/21 21:36 Last Admin: 08/11/21 22:27 Dose: 40 mg Documented by: MEGAN Vital Signs Vital signs: Vital Signs - 8 hr 08/11/21 18:05 08/11/21 19:00 08/11/21 19:26 Temperature 97.7 F Pulse Rate 108 H 99 H 103 H Respiratory Rate 20 Blood Pressure 216/113 H 179/102 H 179/102 H Pulse Oximetry 99 100 97 08/11/21 19:30 08/11/21 20:00 08/11/21 21:00 Temperature Pulse Rate 101 H 100 H 104 H Respiratory Rate Blood Pressure 189/94 H 207/117 H 193/88 H Pulse Oximetry 98 97 96 08/11/21 22:00 08/11/21 22:30 08/11/21 23:00 Temperature Pulse Rate 94 H 102 H 104 H Respiratory Rate 22 19 19 Blood Pressure 127/67 138/72 160/79 H Pulse Oximetry 92 98 97 08/11/21 23:30 Temperature Pulse Rate 98 H Respiratory Rate 17 Blood Pressure 148/84 H Pulse Oximetry 98 MDM - Abdominal Pain Lab Data Result diagrams: 08/11/21 18:48 08/11/21 22:30 Labs: Lab Results 08/11/21 08/11/21 08/11/21 Range/Units 18:48 18:48 18:48 WBC 7.9 (4.5-11.0) X10^3/uL RBC 4.69 (4.5-5.9) X10^6/uL Hgb 14.4 (13.5-17.5) g/dL Hct 41.4 (41-53) % MCV 88.2 (80-100) fL MCH 30.7 (26-34) PG MCHC 34.8 (30-36) % RDW 13.7 (11.6-14.8) % Plt Count 208 (150-400) X10^3/uL Neut % (Auto) 88.7 H (50-75) % Lymph % (Auto) 8.0 L (25-40) % [place] % (Auto) 2.9 L (3-14) % Eos % (Auto) 0.0 L (2-4) % Baso % (Auto) 0.4 (0-2) % Neut # (Auto) 7000 (5871-1101) /uL Lymph # (Auto) 600 L (8126-8586) /uL [place] # (Auto) 200 (0-900) /uL Eos # (Auto) 0 (0-450) /uL Baso # (Auto) 0 (0-100) /uL Sodium 137 (137-145) mmol/L Potassium 4.8 (3.4-5.1) mmol/L Chloride 101 (98-107) mmol/L Carbon Dioxide 17 L (22-32) mmol/L BUN 35 H (9-20) mg/dL Creatinine 1.96 H (0.66-1.25) mg/dL Estimated GFR 36.7 L (>60) mL/min BUN/Creatinine Ratio 17.9 (6-22) Glucose 294 H (70-100) mg/dL Calcium 10.1 (8.4-10.2) mg/dL Total Bilirubin 0.7 (0.2-1.3) mg/dL AST 34 (17-59) IU/L ALT 33 (<50) IU/L Alkaline Phosphatase 117 (38-126) U/L Total Creatine Kinase 438 H (55-170) U/L CK-MB (CK-2) 3.61 H D (<2.37) ng/mL CK-MB (CK-2) Rel Index 0.8 L (1.5-5.0) % Troponin I 0.023 (0.01-0.034) ng/mL Total Protein 8.0 (6.3-8.2) g/dL Albumin 4.9 (3.5-5.0) g/dL Globulin 3.1 (1.7-4.1) g/dL Albumin/Globulin Ratio 1.6 (1.0-2.8) Lipase 24 (23-300) U/L 12/19/21 Range/Units 22:30 WBC (4.5-11.0) X10^3/uL RBC (4.5-5.9) X10^6/uL Hgb (13.5-17.5) g/dL Hct (41-53) % MCV (80-100) fL MCH (26-34) PG MCHC (30-36) % RDW (11.6-14.8) % Plt Count (150-400) X10^3/uL Neut % (Auto) (50-75) % Lymph % (Auto) (25-40) % [place] % (Auto) (3-14) % Eos % (Auto) (2-4) % Baso % (Auto) (0-2) % Neut # (Auto) (3225-8122) /uL Lymph # (Auto) (8286-3764) /uL [place] # (Auto) (0-900) /uL Eos # (Auto) (0-450) /uL Baso # (Auto) (0-100) /uL Sodium 136 L (137-145) mmol/L Potassium 4.4 (3.4-5.1) mmol/L Chloride 106 (98-107) mmol/L Carbon Dioxide 21 L (22-32) mmol/L BUN 32 H (9-20) mg/dL Creatinine 1.72 H (0.66-1.25) mg/dL Estimated GFR 42.7 L (>60) mL/min BUN/Creatinine Ratio 18.6 (6-22) Glucose 280 H (70-100) mg/dL Calcium 8.8 (8.4-10.2) mg/dL Total Bilirubin (0.2-1.3) mg/dL AST (17-59) IU/L ALT (<50) IU/L Alkaline Phosphatase (38-126) U/L Total Creatine Kinase (55-170) U/L CK-MB (CK-2) (<2.37) ng/mL CK-MB (CK-2) Rel Index (1.5-5.0) % Troponin I (0.01-0.034) ng/mL Total Protein (6.3-8.2) g/dL Albumin (3.5-5.0) g/dL Globulin (1.7-4.1) g/dL Albumin/Globulin Ratio (1.0-2.8) Lipase (23-300) U/L ECG Data Interpretation: Sinus rhythm rate 102 VA interval 112, QRS 132, right bundle-branch block and noted. He does have some T-wave inversion in V 3 is significantly more pronounced now than earlier today no ST changes. EKG 2. Sinus rhythm rate 90 rate persistent right bundle-branch block however significant improvement and T-wave inversion noted in lead [address] changes. MDM Narrative Medical decision making narrative: Patient has persistent nausea and vomiting possibly secondary to marijuana use versus gastroparesis complication of diabetes. Blood work does show very small anion gap of 13 which previously was not present. Improved with 2 L of fluid. He is now tolerating ice chips and water and overall feels significantly better. At this time recommend discharge home. He given pain medication. Discharge Plan Departure Patient Disposition: Home Clinical Impression: Vomiting Instructions: Viral Gastroenteritis Activity Restrictions/Additional Instructions: *You have been diagnosed with possible gastroparesis *What to do: Your symptoms may be a complication of your diabetes or marijuana use. Please increase fluids as tolerated. *Continue to take medications as directed Reglan to take as previously directed Zofran 4 mg every 8 hours if needed for nausea or vomiting *Follow up with your primary care provider in 2-3 days or call [phone] *Return to ER if you should have persistent vomiting, increasing abdominal pain or any new, worsening or concerning symptoms Prescriptions: No Action fluoxetine 40 mg capsule 40 mg PO DAILY 0RF atorvastatin 80 mg tablet 80 mg PO DAILY 0RF Lantus Solostar U-100 Insulin 100 unit/mL (3 mL) insulin pen 50 unit SUBCUT QPM 0RF metformin 500 mg tablet 500 mg PO BID 0RF insulin aspart U-100 [Novolog Flexpen U-100 Insulin] 100 unit/mL (3 mL) insulin pen See Rx Instructions .ROUTE .COMPLEX PRN (Reason: Hyperglycemia) 0RF Rx Instructions: sliding scale based on carb intake fenofibrate nanocrystallized [Tricor] 145 mg Tablet 145 mg PO DAILY Qty: 30 0RF pantoprazole 40 mg tablet,delayed release (DR/EC) 40 mg PO QAM 0RF metoclopramide HCl [Reglan] 10 mg tablet 10 mg PO Q6H PRN (Reason: nausea and vomiting) Qty: 10 0RF lisinopril 40 mg tablet 40 mg PO DAILY 0RF Referrals: Azul Dunbar, [Primary Care Provider] -
[2021-08-11] MEDS: METOCLOPRAMIDE 10 MG/2 ML INJ IV (21:45)
[2021-08-11] MEDS: HYDROMORPHONE 1 MG INJ IV (21:45)
[2021-08-11] MEDS: PANTOPRAZOLE 40 MG VIAL IV (22:27)
[2021-08-11 22:37] LABS: Creatine Kinase 438 U/L (55-170)
[2021-08-11 22:50] LABS: Troponin I 0.023 ng/mL (0.01-0.034)
[2021-08-11 22:53] LABS: CKMB % Relative Index 0.8 % (1.5-5.0); Creatine Kinase MB 3.61 ng/mL (<2.37)
[2021-08-11 23:17] LABS: BUN Creatinine Ratio 18.6 (6-22); Blood Urea Nitrogen 32 mg/dL (9-20); Calcium 8.8 mg/dL (8.4-10.2); Carbon Dioxide 21 mmol/L (22-32); Chloride 106 mmol/L (98-107); Estimated Glomerular Filt Rate 42.7 mL/min (>60); Glucose 280 mg/dL (70-100); HEMOLYSIS < 15 (0-50); Potassium 4.4 mmol/L (3.4-5.1); Sodium 136 mmol/L (137-145)
[2021-08-11] MEDS: ONDANSETRON 4 MG ODT PREPACK 1 BOTTLE MISC (23:56)
[2021-08-11] MEDS: HYDROCODONE/ACET 5/325 PREPACK 1 BOTTLE MISC (23:56)
== END 2021-08-12 00:02 | disposition home or self-care (01) ==
PROVIDERS: Emergency Provider Emergency Medicine; PCP Family Medicine
DX: A08.4 Viral intestinal infection, unspecified (principal)
CPT/HCPCS: 36415; 74176; 80048; 80053; 80076; 80320; 80329; 82550; 82553; 82962; 83605; 83690; 84145; 84484; 85025; 87635; 93005; 96361; 96374; 96375; 96376; 99284; C9803; C9113; G0480; J1170; J2405; J2765

== ENCOUNTER 2021-08-12 12:24 | Inpatient (IN) | payer OTHER, SELFPAY ==
[2021-08-11 09:21] VITALS: BMI 35.0
[2021-08-12] VITALS (66 sets, daily range): BP systolic 125–213; BP diastolic 62–117; PULSE 69–110; RESP 6–33; TEMP 37; O2SAT 93–99; BMI 39.5
[2021-08-12] MEDS: SODIUM CHLORIDE 0.9% 1,000 ML 1000 ML IV (13:18)
[2021-08-12] MEDS: ONDANSETRON 4 MG/2 ML INJ IV (13:18)
[2021-08-12 13:20] LABS: Add Manual Diff / Slide Review NO; Basophils Absolute Auto 0 /uL (0-100); Basophils Percent Auto 0.3 % (0-2); Eosinophils Absolute Auto 0 /uL (0-450); Hematocrit 40.8 % (41-53); Lymphocytes Absolute Auto 600 /uL (1100-4500); Lymphocytes Percent Auto 7.2 % (25-40); Mean Corpuscular HGB Conc 34.4 % (30-36); Mean Corpuscular Hemoglobin 30.5 PG (26-34); Mean Corpuscular Volume 88.9 fL (80-100); Monocytes Absolute Auto 600 /uL (0-900); Neutrophils Absolute Auto 7200 /uL (1500-7000); Neutrophils Percent Auto 85.5 % (50-75); Platelet Count 202 X10^3/uL (150-400); Red Blood Cell Count 4.59 X10^6/uL (4.5-5.9); Red Cell Distribution Width 13.8 % (11.6-14.8); White Blood Cell Count 8.5 X10^3/uL (4.5-11.0)
--- NOTE | 2021-08-12 13:28 | ED_ITS ---
HPI - Abdominal Pain <Leilani MccarthyDO - Last Filed: 08/13/21 13:52> General Chief Complaint: Abdominal Pain Stated Complaint: Stomach pain DR sent them in Time Seen by Provider: 08/12/21 13:19 Source: patient Mode of arrival: Ambulatory Limitations: no limitations History of Present Illness HPI narrative: This is a 46-year-old male comes emergency department with complaint of 4 days of epigastric pain. Patient states he has had nausea and vomiting. He states he has had episodes before which felt like pancreatitis. He states this feels similar. Denies fevers but has felt chilled. He denies any chest pain or shortness of breath but states he did have some chest pain before. He has been constipated he does not know when he had his last bowel movement. He has been passing gas. He has not had issues with urination. Patient states he is vaccinated for COVID. He is an insulin-dependent diabetic, has hypertension and dyslipidemia. He did run out of his gabapentin several days ago. He was taking 900 mg t.i.d.. Prior surgeries include shoulder surgery and a [place] fun[employer] plication remotely for Smallwood's esophagitis. He denies allergies to medications. Quit smoking tobacco 20 years ago, alcohol he quit 6 months ago, he does use THC last usage was 4 days ago. His primary care is Dr. Dunbar. Related Data Home Medications Medication Instructions Recorded Confirmed atorvastatin 80 mg tablet 80 mg PO QPM 04/20/20 08/12/21 fluoxetine 40 mg capsule 40 mg PO DAILY 04/20/20 08/12/21 insulin glargine 100 unit/mL (3 50 unit SUBCUT QPM 04/20/20 08/12/21 mL) subcutaneous pen (Lantus Solostar U-100 Insulin) metformin 500 mg tablet 500 mg PO BID 04/20/20 08/12/21 lisinopril 40 mg tablet 40 mg PO DAILY 04/24/20 08/12/21 insulin aspart U-100 100 unit/mL See Rx Instructions .ROUTE 08/03/20 08/12/21 (3 mL) subcutaneous pen (Novolog .COMPLEX PRN Flexpen U-100 Insulin aspart) pantoprazole 40 mg tablet,delayed 40 mg PO QAM 08/03/20 08/12/21 release acamprosate 333 mg tablet,delayed 333 mg PO DAILY 08/12/21 08/12/21 release amlodipine 10 mg tablet 10 mg PO DAILY 08/12/21 08/12/21 chlorthalidone 25 mg tablet 25 mg PO DAILY 08/12/21 08/12/21 famotidine 40 mg tablet 40 mg PO DAILY 08/12/21 08/12/21 fenofibrate nanocrystallized 145 145 mg PO QPM 08/12/21 08/12/21 mg tablet (Tricor) gabapentin 300 mg capsule 300 mg PO TID 08/12/21 08/12/21 metoprolol succinate 100 mg 100 mg PO DAILY 08/12/21 08/12/21 tablet,extended release 24 hr pioglitazone 45 mg tablet 45 mg PO DAILY 08/12/21 08/12/21 tamsulosin 0.4 mg capsule 0.4 mg PO QPM 08/12/21 08/12/21 Previous Rx's Medication Instructions Recorded metoclopramide HCl 10 mg tablet 10 mg PO Q6H PRN #10 tab 08/11/21 (Reglan) Allergies Allergy/AdvReac Type Severity Reaction Status Date / Time No Known Drug Allergies Allergy Verified 08/12/21 12:49 Review of Systems <Leilani Mccarthy DO - Last Filed: 08/13/21 13:52> Review of Systems ROS Unobtainable: All systems reviewed & are unremarkable except as noted in HPI and below Patient History <Leilani Mccarthy DO - Last Filed: 08/13/21 13:52> Medical History Acute kidney injury Arthritis BPH w urinary obs/LUTS Chronic GERD Depression Diabetes mellitus Erectile dysfunction Erectile dysfunction Gastritis Hyperlipidemia Hypertension Pancreatitis Social History household members: spouse Smoking Status: Former smoker alcohol intake: current Smoking Status: Former smoker tobacco type: cigarettes alcohol intake frequency: 0-2 drinks per day Substance Use Type: marijuana Exam <Leilani Mccarthy DO - Last Filed: 08/13/21 13:52> Narrative Exam Narrative: GENERAL: Alert and oriented x three, obese male in [id number]-[id number] distress. HEENT: Head normocephalic, atraumatic, EOMI, pupils reactive, face symmetric, moist mucous membranes NECK: Supple, full range of motion CARDIOVASCULAR: Regular rate and rhythm without murmurs, rubs or gallops. RESPIRATORY: Breath sounds equal bilaterally, no wheezes rales or rhonchi. ABDOMEN: Soft, patient has mild epigastric tenderness. bowel sounds all 4 quadrants. No guarding or rebound, rigidity, no mass. Not distended. : No CVA tenderness EXTREMITIES: Normal range of motion, no edema bilateral lower extremities. Neurovascularly intact NEUROLOGICAL: Cranial nerves II through XII grossly intact. Moving all extremities SKIN: Warm, dry, no petechiae, no rashes or lesions. Initial Vital Signs Initial Vital Signs: Vital Signs Temperature 98.6 F 08/12/21 12:45 Pulse Rate 89 08/12/21 12:45 Respiratory Rate 18 08/12/21 12:45 Blood Pressure 213/117 H 08/12/21 12:45 Pulse Oximetry 99 08/12/21 12:45 <Krystyna Cannon DO - Last Filed: 08/13/21 00:45> Initial Vital Signs Initial Vital Signs: Vital Signs Temperature 98.6 F 08/12/21 12:45 Pulse Rate 89 08/12/21 12:45 Respiratory Rate 18 08/12/21 12:45 Blood Pressure 213/117 H 08/12/21 12:45 Pulse Oximetry 99 08/12/21 12:45 Course <Leilani Mccarthy, DO - Last Filed: 08/13/21 13:52> Orders Ordered: ED Orders 08/13/21 09:30 PTT [Partial Thromboplastin Time] Q6H 08/14/21 14:00 Partial Thromboplastin Time DAILY 08/15/21 14:00 Partial Thromboplastin Time DAILY 08/16/21 14:00 Partial Thromboplastin Time DAILY 08/17/21 14:00 Partial Thromboplastin Time DAILY 08/18/21 14:00 Partial Thromboplastin Time DAILY Acetaminophen (Acetaminophen 325 Mg Tablet) 650 mg PO Q6HR PRN PRN Reason: Fever/Mild Pain (1-3) Last Admin: 08/13/21 06:44 Dose: 650 mg Documented by: [email or web address] Amlodipine Besylate (Amlodipine 5 Mg Tablet) 10 mg PO DAILY [facility] Last Admin: 08/13/21 08:41 Dose: 10 mg Documented by: MSTEWART Aspirin (Aspirin 81 Mg Chew Tab) 162 mg PO DAILY [facility] Last Admin: 08/13/21 12:00 Dose: 162 mg Documented by: ALICIA Atorvastatin Calcium (Atorvastatin 20 Mg Tablet) 80 mg PO QPM [facility] Clopidogrel Bisulfate (Clopidogrel 75 Mg Tablet) 75 mg PO DAILY [facility] Famotidine (Famotidine 20 Mg Tablet) 40 mg PO BID [facility] Last Admin: 08/13/21 12:45 Dose: 40 mg Documented by: ALICIA Fluoxetine HCl (Fluoxetine 20 Mg Capsule) 40 mg PO DAILY [facility] Last Admin: 08/13/21 08:41 Dose: 40 mg Documented by: ALICIA Heparin Sodium (Porcine) (Heparin 5,000 Unit/Ml Vial) 5,000 unit SUBCUT BID [facility] Insulin Glargine (Insulin Glargine 100 Unit/Ml 3ml Pen) 50 unit SUBCUT QPM [facility] Lisinopril (Lisinopril 20 Mg Tablet) 40 mg PO DAILY [facility] Last Admin: 08/13/21 08:41 Dose: 40 mg Documented by: ALICIA Metoclopramide HCl (Metoclopramide Hcl 10 Mg Tablet) 10 mg PO Q6H PRN PRN Reason: nausea and vomiting Metoprolol Succinate (Metoprolol Er 50 Mg Tablet) 100 mg PO DAILY [facility] Last Admin: 08/13/21 08:40 Dose: 100 mg Documented by: ALICIA Metoprolol Tartrate (Metoprolol Tartrate 5 Mg/5 Ml Inj) 5 mg IV Q6H PRN PRN Reason: SBP>180 Nitroglycerin (Nitroglycerin 0.4 Mg Sl Tab) 0.4 mg SL [id number] PRN PRN Reason: Chest Pain Ondansetron HCl (Ondansetron 4 Mg/2 Ml Inj) 4 mg IV Q8HR PRN PRN Reason: Nausea And Vomiting Sucralfate (Sucralfate 1 Gm Tablet) 1 gm PO ACHS [facility] Last Admin: 08/13/21 12:45 Dose: 1 gm Documented by: ALICIA Tamsulosin HCl (Tamsulosin 0.4 Mg Capsule) 0.4 mg PO QPM [facility] Zolpidem Tartrate (Zolpidem 5 Mg Tablet) 5 mg PO BEDTIME PRN PRN Reason: Sleep Discontinued Medications Amlodipine Besylate (Amlodipine 5 Mg Tablet) 10 mg PO NOW ONE Stop: 08/13/21 00:04 Last Admin: 08/13/21 00:15 Dose: 10 mg Documented by: [email or web address] Aspirin (Aspirin 81 Mg Chew Tab) 324 mg PO NOW ONE Stop: 08/12/21 13:53 Last Admin: 08/12/21 13:58 Dose: 324 mg Documented by: LUCA Aspirin (Aspirin 81 Mg Chew Tab) 324 mg PO NOW [facility] Aspirin (Aspirin Ec 81 Mg Tablet) 81 mg PO NOW ONE Stop: 08/12/21 22:45 Last Admin: 08/12/21 23:07 Dose: 81 mg Documented by: [email or web address] Aspirin (Aspirin Ec 325 Mg Tablet) 325 mg PO DAILY [facility] Atorvastatin Calcium (Atorvastatin 20 Mg Tablet) 80 mg PO NOW ONE Stop: 08/12/21 18:52 Last Admin: 08/12/21 20:31 Dose: 80 mg Documented by: LUCA Clopidogrel Bisulfate (Clopidogrel 75 Mg Tablet) 300 mg PO NOW ONE Stop: 08/13/21 10:47 Last Admin: 08/13/21 11:00 Dose: 300 mg Documented by: ALICIA Dextrose (Dextrose 50 % In Water 25 Gm/50 Ml Syringe) 25 gm IV PRN PRN PRN Reason: Hypoglycemia Diphenhydramine HCl (Diphenhydramine 25 Mg Tablet) 25 mg PO BEDTIME PRN PRN Reason: Insomnia Last Admin: 08/12/21 23:07 Dose: 25 mg Documented by: [email or web address] Fenofibrate (Fenofibrate, Micronized 67 Mg Capsule) 134 mg PO NOW ONE Stop: 08/12/21 18:52 Last Admin: 08/12/21 19:25 Dose: 134 mg Documented by: LUCA Heparin Sodium (Porcine) (Heparin 5,000 Unit/Ml Vial) 5,000 unit IV NOW ONE Stop: 08/12/21 13:54 Last Admin: 08/12/21 14:08 Dose: 5,000 unit Documented by: LUCA Sodium Chloride (Normal Saline 0.9%) 1,000 mls @ 1,000 mls/hr IV BOLUS ONE Stop: 08/12/21 13:54 Last Infusion: 08/12/21 14:58 Dose: 0 mls/hr Documented by: Infusion: 08/12/21 13:55 Dose: 0 mls/hr Documented by: Admin: 08/12/21 13:18 Dose: 1,000 mls/hr Documented by: LUCA Heparin Sodium/Dextrose (Heparin Drip) 25,000 unit in 500 mls @ 20 mls/hr IV CONT [facility]; Protocol Last Titration: 08/13/21 11:15 Dose: 0 units/hr, 0 mls/hr Documented by: Titration: 08/12/21 20:41 Dose: 950 units/hr, 19 mls/hr Documented by: Admin: 08/12/21 14:09 Dose: 1,000 units/hr, 20 mls/hr Documented by: LUCA Nitroglycerin (Nitroglycerin) 50 mg in 250 mls @ 1.5 mls/hr IV TITRATE [facility]; Protocol Last Titration: 08/12/21 22:45 Dose: 0 mcg/min, 0 mls/hr Documented by: [email or web address] Titration: 08/12/21 21:38 Dose: 10 mcg/min, 3 mls/hr Documented by: Titration: 08/12/21 20:54 Dose: 15 mcg/min, 4.5 mls/hr Documented by: Titration: 08/12/21 16:13 Dose: 20 mcg/min, 6 mls/hr Documented by: Titration: 08/12/21 15:25 Dose: 10 mcg/min, 3 mls/hr Documented by: Admin: 08/12/21 14:10 Dose: 5 mcg/min, 1.5 mls/hr Documented by: LUCA Insulin Glargine (Insulin Glargine 100 Unit/Ml 3ml Pen) 50 unit SUBCUT BEDTIME [facility] Last Admin: 08/12/21 21:09 Dose: 50 unit Documented by: LUCA Cosigned by: LATIA Insulin Human Lispro (Insulin Lispro 100 Unit/Ml 3ml Vial) 0 unit SUBCUT ACHS [facility]; Protocol Last Admin: 08/12/21 21:10 Dose: 1 unit Documented by: LUCA Cosigned by: LATIA Lisinopril (Lisinopril 20 Mg Tablet) 40 mg PO NOW ONE Stop: 08/12/21 18:52 Last Admin: 08/12/21 19:25 Dose: 40 mg Documented by: LUCA Lorazepam (Lorazepam 0.5 Mg Tablet) 0.5 mg PO NOW ONE Stop: 08/12/21 17:14 Last Admin: 08/12/21 17:18 Dose: 0.5 mg Documented by: LUCA Metoprolol Succinate (Metoprolol Er 50 Mg Tablet) 100 mg PO NOW ONE Stop: 08/12/21 18:47 Last Admin: 08/12/21 19:25 Dose: 100 mg Documented by: LUCA Ondansetron HCl (Ondansetron 4 Mg/2 Ml Inj) 4 mg IV NOW ONE Stop: 08/12/21 12:55 Last Admin: 08/12/21 13:18 Dose: 4 mg Documented by: LUCA Pantoprazole Sodium (Pantoprazole 40 Mg Vial) 40 mg IV NOW ONE Stop: 08/12/21 22:45 Last Admin: 08/12/21 23:07 Dose: 40 mg Documented by: VICTORINAHEEL Reevaluation(s) Reevaluation #1: Patient received nitro, patient has had maybe some mild change but not resolution of symptoms. We once again reviewed all his labs and findings. Patient is aware waiting for call back from Cardiology for their recommendations but at this time plan for transfer for NSTEMI. Reevaluation #2: Patient states his epigastric pain has significantly improved he no longer feels nauseated. We reviewed his findings so far and are currently searching for placement. There are no beds regionally at the moment. Time: 16:23 Reevaluation #3: Patient continues to be improved. He was quite anxious earlier and had 1 p.o. Ativan. Patient is aware we are currently searching for a bed for transfer. He does note he has been off all of his own medications for the past 4 days. Time: 18:15 Consultations Consultation #1: Dr. Diamond, cardiology agrees with plan for nitro drip, heparin, aspirin and transfer to [facility] or anywhere with Cardiology available. Vital Signs Vital signs: Vital Signs - 8 hr 08/12/21 16:40 08/12/21 16:45 08/12/21 16:51 Pulse Rate 102 H 99 H 106 H Respiratory Rate 22 22 24 Blood Pressure 155/74 H 186/98 H Pulse Oximetry 96 95 95 08/12/21 17:00 08/12/21 17:11 08/12/21 17:15 Pulse Rate 93 H 102 H 93 H Respiratory Rate 11 L 24 16 Blood Pressure 174/81 H 154/81 H Pulse Oximetry 97 96 97 08/12/21 17:20 08/12/21 17:30 08/12/21 17:40 Pulse Rate 103 H 103 H 94 H Respiratory Rate 23 23 22 Blood Pressure 150/77 H 139/62 146/65 H Pulse Oximetry 96 97 95 08/12/21 17:45 08/12/21 17:51 08/12/21 18:00 Pulse Rate 97 H 100 H 94 H Respiratory Rate 20 22 22 Blood Pressure 139/73 151/76 H Pulse Oximetry 95 95 94 08/12/21 18:10 08/12/21 18:15 08/12/21 18:20 Pulse Rate 98 H 96 H 101 H Respiratory Rate 21 20 21 Blood Pressure 165/80 H 153/73 H Pulse Oximetry 95 94 96 08/12/21 18:30 08/12/21 18:40 08/12/21 18:45 Pulse Rate 93 H 107 H 110 H Respiratory Rate 22 18 26 H Blood Pressure 150/70 H 156/84 H Pulse Oximetry 93 95 95 08/12/21 18:50 08/12/21 19:00 08/12/21 19:15 Pulse Rate 101 H 101 H 108 H Respiratory Rate 22 23 20 Blood Pressure 167/86 H 165/77 H Pulse Oximetry 94 96 95 08/12/21 19:30 08/12/21 19:45 08/12/21 20:00 Pulse Rate 96 H 96 H 100 H Respiratory Rate 20 21 25 H Blood Pressure Pulse Oximetry 97 96 96 08/12/21 20:15 08/12/21 20:30 08/12/21 20:45 Pulse Rate 94 H 81 82 Respiratory Rate 23 22 21 Blood Pressure Pulse Oximetry 96 95 96 08/12/21 21:00 08/12/21 21:15 08/12/21 21:30 Pulse Rate 73 84 81 Respiratory Rate 21 28 H 26 H Blood Pressure Pulse Oximetry 95 94 97 <Krystyna Cannon, DO - Last Filed: 08/13/21 00:45> Orders Ordered: ED Orders 08/13/21 09:30 PTT [Partial Thromboplastin Time] Q6H 08/14/21 14:00 Partial Thromboplastin Time DAILY 08/15/21 14:00 Partial Thromboplastin Time DAILY 08/16/21 14:00 Partial Thromboplastin Time DAILY 08/17/21 14:00 Partial Thromboplastin Time DAILY 08/18/21 14:00 Partial Thromboplastin Time DAILY Acetaminophen (Acetaminophen 325 Mg Tablet) 650 mg PO Q6HR PRN PRN Reason: Fever/Mild Pain (1-3) Last Admin: 08/13/21 06:44 Dose: 650 mg Documented by: [email or web address] Amlodipine Besylate (Amlodipine 5 Mg Tablet) 10 mg PO DAILY [facility] Last Admin: 08/13/21 08:41 Dose: 10 mg Documented by: ALICIA Aspirin (Aspirin 81 Mg Chew Tab) 162 mg PO DAILY [facility] Last Admin: 08/13/21 12:00 Dose: 162 mg Documented by: ALICIA Atorvastatin Calcium (Atorvastatin 20 Mg Tablet) 80 mg PO QPM [facility] Clopidogrel Bisulfate (Clopidogrel 75 Mg Tablet) 75 mg PO DAILY [facility] Famotidine (Famotidine 20 Mg Tablet) 40 mg PO BID [facility] Last Admin: 08/13/21 12:45 Dose: 40 mg Documented by: ALICIA Fluoxetine HCl (Fluoxetine 20 Mg Capsule) 40 mg PO DAILY [facility] Last Admin: 08/13/21 08:41 Dose: 40 mg Documented by: ALICIA Heparin Sodium (Porcine) (Heparin 5,000 Unit/Ml Vial) 5,000 unit SUBCUT BID [facility] Insulin Glargine (Insulin Glargine 100 Unit/Ml 3ml Pen) 50 unit SUBCUT QPM [facility] Lisinopril (Lisinopril 20 Mg Tablet) 40 mg PO DAILY [facility] Last Admin: 08/13/21 08:41 Dose: 40 mg Documented by: ALICIA Metoclopramide HCl (Metoclopramide Hcl 10 Mg Tablet) 10 mg PO Q6H PRN PRN Reason: nausea and vomiting Metoprolol Succinate (Metoprolol Er 50 Mg Tablet) 100 mg PO DAILY [facility] Last Admin: 08/13/21 08:40 Dose: 100 mg Documented by: ALICIA Metoprolol Tartrate (Metoprolol Tartrate 5 Mg/5 Ml Inj) 5 mg IV Q6H PRN PRN Reason: SBP>180 Nitroglycerin (Nitroglycerin 0.4 Mg Sl Tab) 0.4 mg SL [id number] PRN PRN Reason: Chest Pain Ondansetron HCl (Ondansetron 4 Mg/2 Ml Inj) 4 mg IV Q8HR PRN PRN Reason: Nausea And Vomiting Sucralfate (Sucralfate 1 Gm Tablet) 1 gm PO ACHS [facility] Last Admin: 08/13/21 12:45 Dose: 1 gm Documented by: ALICIA Tamsulosin HCl (Tamsulosin 0.4 Mg Capsule) 0.4 mg PO QPM [facility] Zolpidem Tartrate (Zolpidem 5 Mg Tablet) 5 mg PO BEDTIME PRN PRN Reason: Sleep Discontinued Medications Amlodipine Besylate (Amlodipine 5 Mg Tablet) 10 mg PO NOW ONE Stop: 08/13/21 00:04 Last Admin: 08/13/21 00:15 Dose: 10 mg Documented by: [email or web address] Aspirin (Aspirin 81 Mg Chew Tab) 324 mg PO NOW ONE Stop: 08/12/21 13:53 Last Admin: 08/12/21 13:58 Dose: 324 mg Documented by: LUCA Aspirin (Aspirin 81 Mg Chew Tab) 324 mg PO NOW [facility] Aspirin (Aspirin Ec 81 Mg Tablet) 81 mg PO NOW ONE Stop: 08/12/21 22:45 Last Admin: 08/12/21 23:07 Dose: 81 mg Documented by: JAZMINE Aspirin (Aspirin Ec 325 Mg Tablet) 325 mg PO DAILY [facility] Atorvastatin Calcium (Atorvastatin 20 Mg Tablet) 80 mg PO NOW ONE Stop: 08/12/21 18:52 Last Admin: 08/12/21 20:31 Dose: 80 mg Documented by: LUCA Clopidogrel Bisulfate (Clopidogrel 75 Mg Tablet) 300 mg PO NOW ONE Stop: 08/13/21 10:47 Last Admin: 08/13/21 11:00 Dose: 300 mg Documented by: ALICIA Dextrose (Dextrose 50 % In Water 25 Gm/50 Ml Syringe) 25 gm IV PRN PRN PRN Reason: Hypoglycemia Diphenhydramine HCl (Diphenhydramine 25 Mg Tablet) 25 mg PO BEDTIME PRN PRN Reason: Insomnia Last Admin: 08/12/21 23:07 Dose: 25 mg Documented by: JAZMINE Fenofibrate (Fenofibrate, Micronized 67 Mg Capsule) 134 mg PO NOW ONE Stop: 08/12/21 18:52 Last Admin: 08/12/21 19:25 Dose: 134 mg Documented by: LUCA Heparin Sodium (Porcine) (Heparin 5,000 Unit/Ml Vial) 5,000 unit IV NOW ONE Stop: 08/12/21 13:54 Last Admin: 08/12/21 14:08 Dose: 5,000 unit Documented by: LUCA Sodium Chloride (Normal Saline 0.9%) 1,000 mls @ 1,000 mls/hr IV BOLUS ONE Stop: 08/12/21 13:54 Last Infusion: 08/12/21 14:58 Dose: 0 mls/hr Documented by: Infusion: 08/12/21 13:55 Dose: 0 mls/hr Documented by: Admin: 08/12/21 13:18 Dose: 1,000 mls/hr Documented by: LUCA Heparin Sodium/Dextrose (Heparin Drip) 25,000 unit in 500 mls @ 20 mls/hr IV CONT [facility]; Protocol Last Titration: 08/13/21 11:15 Dose: 0 units/hr, 0 mls/hr Documented by: Titration: 08/12/21 20:41 Dose: 950 units/hr, 19 mls/hr Documented by: Admin: 08/12/21 14:09 Dose: 1,000 units/hr, 20 mls/hr Documented by: LUCA Nitroglycerin (Nitroglycerin) 50 mg in 250 mls @ 1.5 mls/hr IV TITRATE [facility]; Protocol Last Titration: 08/12/21 22:45 Dose: 0 mcg/min, 0 mls/hr Documented by: [email or web address] Titration: 08/12/21 21:38 Dose: 10 mcg/min, 3 mls/hr Documented by: Titration: 08/12/21 20:54 Dose: 15 mcg/min, 4.5 mls/hr Documented by: Titration: 08/12/21 16:13 Dose: 20 mcg/min, 6 mls/hr Documented by: Titration: 08/12/21 15:25 Dose: 10 mcg/min, 3 mls/hr Documented by: Admin: 08/12/21 14:10 Dose: 5 mcg/min, 1.5 mls/hr Documented by: LUCA Insulin Glargine (Insulin Glargine 100 Unit/Ml 3ml Pen) 50 unit SUBCUT BEDTIME [facility] Last Admin: 08/12/21 21:09 Dose: 50 unit Documented by: LUCA Cosigned by: LATIA Insulin Human Lispro (Insulin Lispro 100 Unit/Ml 3ml Vial) 0 unit SUBCUT [facility]; Protocol Last Admin: 08/12/21 21:10 Dose: 1 unit Documented by: LUCA Cosigned by: LATIA Lisinopril (Lisinopril 20 Mg Tablet) 40 mg PO NOW ONE Stop: 08/12/21 18:52 Last Admin: 08/12/21 19:25 Dose: 40 mg Documented by: LUCA Lorazepam (Lorazepam 0.5 Mg Tablet) 0.5 mg PO NOW ONE Stop: 08/12/21 17:14 Last Admin: 08/12/21 17:18 Dose: 0.5 mg Documented by: LUCA Metoprolol Succinate (Metoprolol Er 50 Mg Tablet) 100 mg PO NOW ONE Stop: 08/12/21 18:47 Last Admin: 08/12/21 19:25 Dose: 100 mg Documented by: LUCA Ondansetron HCl (Ondansetron 4 Mg/2 Ml Inj) 4 mg IV NOW ONE Stop: 08/12/21 12:55 Last Admin: 08/12/21 13:18 Dose: 4 mg Documented by: LUCA Pantoprazole Sodium (Pantoprazole 40 Mg Vial) 40 mg IV NOW ONE Stop: 08/12/21 22:45 Last Admin: 08/12/21 23:07 Dose: 40 mg Documented by: [email or web address] Vital Signs Vital signs: Vital Signs - 8 hr 08/12/21 16:40 08/12/21 16:45 08/12/21 16:51 Pulse Rate 102 H 99 H 106 H Respiratory Rate 22 22 24 Blood Pressure 155/74 H 186/98 H Pulse Oximetry 96 95 95 08/12/21 17:00 08/12/21 17:11 08/12/21 17:15 Pulse Rate 93 H 102 H 93 H Respiratory Rate 11 L 24 16 Blood Pressure 174/81 H 154/81 H Pulse Oximetry 97 96 97 08/12/21 17:20 08/12/21 17:30 08/12/21 17:40 Pulse Rate 103 H 103 H 94 H Respiratory Rate 23 23 22 Blood Pressure 150/77 H 139/62 146/65 H Pulse Oximetry 96 97 95 08/12/21 17:45 08/12/21 17:51 08/12/21 18:00 Pulse Rate 97 H 100 H 94 H Respiratory Rate 20 22 22 Blood Pressure 139/73 151/76 H Pulse Oximetry 95 95 94 08/12/21 18:10 08/12/21 18:15 08/12/21 18:20 Pulse Rate 98 H 96 H 101 H Respiratory Rate 21 20 21 Blood Pressure 165/80 H 153/73 H Pulse Oximetry 95 94 96 08/12/21 18:30 08/12/21 18:40 08/12/21 18:45 Pulse Rate 93 H 107 H 110 H Respiratory Rate 22 18 26 H Blood Pressure 150/70 H 156/84 H Pulse Oximetry 93 95 95 08/12/21 18:50 08/12/21 19:00 08/12/21 19:15 Pulse Rate 101 H 101 H 108 H Respiratory Rate 22 23 20 Blood Pressure 167/86 H 165/77 H Pulse Oximetry 94 96 95 08/12/21 19:30 08/12/21 19:45 08/12/21 20:00 Pulse Rate 96 H 96 H 100 H Respiratory Rate 20 21 25 H Blood Pressure Pulse Oximetry 97 96 96 08/12/21 20:15 08/12/21 20:30 08/12/21 20:45 Pulse Rate 94 H 81 82 Respiratory Rate 23 22 21 Blood Pressure Pulse Oximetry 96 95 96 08/12/21 21:00 08/12/21 21:15 08/12/21 21:30 Pulse Rate 73 84 81 Respiratory Rate 21 28 H 26 H Blood Pressure Pulse Oximetry 95 94 97 MDM - Abdominal Pain <Leilani Mccarthy, DO - Last Filed: 08/13/21 13:52> Lab Data Result diagrams: 08/13/21 04:25 08/13/21 04:25 Labs: Lab Results 08/12/21 08/12/21 08/12/21 Range/Units 13:10 13:10 13:10 WBC 8.5 (4.5-11.0) X10^3/uL RBC 4.59 (4.5-5.9) X10^6/uL Hgb 14.0 (13.5-17.5) g/dL Hct 40.8 L (41-53) % MCV 88.9 (80-100) fL MCH 30.5 (26-34) PG MCHC 34.4 (30-36) % RDW 13.8 (11.6-14.8) % Plt Count 202 (150-400) X10^3/uL Neut % (Auto) 85.5 H (50-75) % Lymph % (Auto) 7.2 L (25-40) % Jay % (Auto) 7.0 (3-14) % Eos % (Auto) 0.0 L (2-4) % Baso % (Auto) 0.3 (0-2) % Neut # (Auto) 7200 H (6874-1696) /uL Lymph # (Auto) 600 L (9007-2005) /uL Jay # (Auto) 600 (0-900) /uL Eos # (Auto) 0 (0-450) /uL Baso # (Auto) 0 (0-100) /uL PT 11.9 (10.1-12.7) SECONDS INR 1.1 (0.9-1.3) APTT 33 (26.4-36.2) SECONDS Sodium 138 (137-145) mmol/L Potassium 4.4 (3.4-5.1) mmol/L Chloride 103 (98-107) mmol/L Carbon Dioxide 26 (22-32) mmol/L BUN 27 H (9-20) mg/dL Creatinine 1.58 H (0.66-1.25) mg/dL Estimated GFR 47.0 L (>60) mL/min BUN/Creatinine Ratio 17.1 (6-22) Glucose 186 H (70-100) mg/dL Hemoglobin A1c (4.0-6.0) % Calcium 9.8 (8.4-10.2) mg/dL Total Bilirubin 0.6 (0.2-1.3) mg/dL AST 44 (17-59) IU/L ALT 33 (<50) IU/L Alkaline Phosphatase 111 (38-126) U/L Total Creatine Kinase 1020 H D (55-170) U/L CK-MB (CK-2) 4.60 H (<2.37) ng/mL CK-MB (CK-2) Rel Index 0.5 L (1.5-5.0) % Troponin I 0.102 H (0.01-0.034) ng/mL Total Protein 7.7 (6.3-8.2) g/dL Albumin 4.6 (3.5-5.0) g/dL Globulin 3.1 (1.7-4.1) g/dL Albumin/Globulin Ratio 1.5 (1.0-2.8) Lipase 23 (23-300) U/L Urine RBC (0-5/HPF) Urine WBC (0-5/HPF) Ur Squamous Epith Cells (0-5/HPF) Ur Transition Epith Cell (0-5/HPF) Urine Bacteria (None) Hyaline Casts (None) Granular Casts (None) Urine Mucus (Negative) Ur Culture Indicated? Ethyl Alcohol ( - 10) mg/dL SARS-CoV-2 (PCR) (Negative) 08/12/21 08/12/21 08/12/21 Range/Units 13:10 13:37 13:51 WBC (4.5-11.0) X10^3/uL RBC (4.5-5.9) X10^6/uL Hgb (13.5-17.5) g/dL Hct (41-53) % MCV (80-100) fL MCH (26-34) PG MCHC (30-36) % RDW (11.6-14.8) % Plt Count (150-400) X10^3/uL Neut % (Auto) (50-75) % Lymph % (Auto) (25-40) % Jay % (Auto) (3-14) % Eos % (Auto) (2-4) % Baso % (Auto) (0-2) % Neut # (Auto) (4687-3764) /uL Lymph # (Auto) (0830-9930) /uL Jay # (Auto) (0-900) /uL Eos # (Auto) (0-450) /uL Baso # (Auto) (0-100) /uL PT (10.1-12.7) SECONDS INR (0.9-1.3) APTT (26.4-36.2) SECONDS Sodium (137-145) mmol/L Potassium (3.4-5.1) mmol/L Chloride (98-107) mmol/L Carbon Dioxide (22-32) mmol/L BUN (9-20) mg/dL Creatinine (0.66-1.25) mg/dL Estimated GFR (>60) mL/min BUN/Creatinine Ratio (6-22) Glucose (70-100) mg/dL Hemoglobin A1c 7.8 H (4.0-6.0) % Calcium (8.4-10.2) mg/dL Total Bilirubin (0.2-1.3) mg/dL AST (17-59) IU/L ALT (<50) IU/L Alkaline Phosphatase (38-126) U/L Total Creatine Kinase (55-170) U/L CK-MB (CK-2) (<2.37) ng/mL CK-MB (CK-2) Rel Index (1.5-5.0) % Troponin I (0.01-0.034) ng/mL Total Protein (6.3-8.2) g/dL Albumin (3.5-5.0) g/dL Globulin (1.7-4.1) g/dL Albumin/Globulin Ratio (1.0-2.8) Lipase (23-300) U/L Urine RBC (0-5/HPF) Urine WBC (0-5/HPF) Ur Squamous Epith Cells (0-5/HPF) Ur Transition Epith Cell (0-5/HPF) Urine Bacteria (None) Hyaline Casts (None) Granular Casts (None) Urine Mucus (Negative) Ur Culture Indicated? Ethyl Alcohol < 10 ( - 10) mg/dL SARS-CoV-2 (PCR) Negative (Negative) 08/12/21 08/12/21 08/12/21 Range/Units 15:17 15:35 20:00 WBC (4.5-11.0) X10^3/uL RBC (4.5-5.9) X10^6/uL Hgb (13.5-17.5) g/dL Hct (41-53) % MCV (80-100) fL MCH (26-34) PG MCHC (30-36) % RDW (11.6-14.8) % Plt Count (150-400) X10^3/uL Neut % (Auto) (50-75) % Lymph % (Auto) (25-40) % Jay % (Auto) (3-14) % Eos % (Auto) (2-4) % Baso % (Auto) (0-2) % Neut # (Auto) (8337-4342) /uL Lymph # (Auto) (4195-9851) /uL Jay # (Auto) (0-900) /uL Eos # (Auto) (0-450) /uL Baso # (Auto) (0-100) /uL PT (10.1-12.7) SECONDS INR (0.9-1.3) APTT 83 H* D (26.4-36.2) SECONDS Sodium (137-145) mmol/L Potassium (3.4-5.1) mmol/L Chloride (98-107) mmol/L Carbon Dioxide (22-32) mmol/L BUN (9-20) mg/dL Creatinine (0.66-1.25) mg/dL Estimated GFR (>60) mL/min BUN/Creatinine Ratio (6-22) Glucose (70-100) mg/dL Hemoglobin A1c (4.0-6.0) % Calcium (8.4-10.2) mg/dL Total Bilirubin (0.2-1.3) mg/dL AST (17-59) IU/L ALT (<50) IU/L Alkaline Phosphatase (38-126) U/L Total Creatine Kinase (55-170) U/L CK-MB (CK-2) (<2.37) ng/mL CK-MB (CK-2) Rel Index (1.5-5.0) % Troponin I 0.088 H (0.01-0.034) ng/mL Total Protein (6.3-8.2) g/dL Albumin (3.5-5.0) g/dL Globulin (1.7-4.1) g/dL Albumin/Globulin Ratio (1.0-2.8) Lipase (23-300) U/L Urine RBC 5-10/hpf H (0-5/HPF) Urine WBC 0-1/hpf (0-5/HPF) Ur Squamous Epith Cells 0-1 /hpf (0-5/HPF) Ur Transition Epith Cell 0-1/hpf (0-5/HPF) Urine Bacteria Occasional (0-1) (None) Hyaline Casts 1-5/lpf (None) Granular Casts 5-10/lpf (None) Urine Mucus 1+ H (Negative) Ur Culture Indicated? Cult not indicated Ethyl Alcohol ( - 10) mg/dL SARS-CoV-2 (PCR) (Negative) 08/12/21 Range/Units 21:10 WBC (4.5-11.0) X10^3/uL RBC (4.5-5.9) X10^6/uL Hgb (13.5-17.5) g/dL Hct (41-53) % MCV (80-100) fL MCH (26-34) PG MCHC (30-36) % RDW (11.6-14.8) % Plt Count (150-400) X10^3/uL Neut % (Auto) (50-75) % Lymph % (Auto) (25-40) % Jay % (Auto) (3-14) % Eos % (Auto) (2-4) % Baso % (Auto) (0-2) % Neut # (Auto) (3612-6600) /uL Lymph # (Auto) (1786-2923) /uL Jay # (Auto) (0-900) /uL Eos # (Auto) (0-450) /uL Baso # (Auto) (0-100) /uL PT (10.1-12.7) SECONDS INR (0.9-1.3) APTT (26.4-36.2) SECONDS Sodium (137-145) mmol/L Potassium (3.4-5.1) mmol/L Chloride (98-107) mmol/L Carbon Dioxide (22-32) mmol/L BUN (9-20) mg/dL Creatinine (0.66-1.25) mg/dL Estimated GFR (>60) mL/min BUN/Creatinine Ratio (6-22) Glucose (70-100) mg/dL Hemoglobin A1c (4.0-6.0) % Calcium (8.4-10.2) mg/dL Total Bilirubin (0.2-1.3) mg/dL AST (17-59) IU/L ALT (<50) IU/L Alkaline Phosphatase (38-126) U/L Total Creatine Kinase (55-170) U/L CK-MB (CK-2) (<2.37) ng/mL CK-MB (CK-2) Rel Index (1.5-5.0) % Troponin I 0.064 H (0.01-0.034) ng/mL Total Protein (6.3-8.2) g/dL Albumin (3.5-5.0) g/dL Globulin (1.7-4.1) g/dL Albumin/Globulin Ratio (1.0-2.8) Lipase (23-300) U/L Urine RBC (0-5/HPF) Urine WBC (0-5/HPF) Ur Squamous Epith Cells (0-5/HPF) Ur Transition Epith Cell (0-5/HPF) Urine Bacteria (None) Hyaline Casts (None) Granular Casts (None) Urine Mucus (Negative) Ur Culture Indicated? Ethyl Alcohol ( - 10) mg/dL SARS-CoV-2 (PCR) (Negative) Point of care testing: Point of Care Testing Glucose POC 207 Urine Dip Bedside Urine Glucose Negative Bedside Urine Bilirubin - Negative Bedside Urine Ketone +/- 5 Urine Specific [place] 1.025 Bedside Urine Occult Blood +++ Bedside Urine pH 5.5 Bedside Urine Protein +++ 300 Bedside Urine Urobilinogen - Negative Bedside Urine Nitrite - Negative Bedside Urine Leukocytes - Negative Esterase Imaging Data Chest x-ray: Radiologist's Impression: [address] [address] XRay Report Signed Patient: Nic Morrison MR#: [id number] : 1975 Acct:[id number] Age/Sex: 46 / M Date of Service: 08/12/21 Loc: ED Accession Number: [id number] ?? Procedure: XR chest 1V Ordering Provider: Leilani Mccarthy D.O. PROCEDURE:? XR CHEST 1V ? INDICATIONS:? chest pain ? TECHNIQUE:? One view of the chest was acquired.? ? COMPARISON:? [facility], , XR CHEST 1V, 07/30/2020, 15:26. ? FINDINGS:? ? Surgical changes and devices:? None.? ? Lungs and pleura:? Low lung volumes.? Lungs are clear.? No pleural effusions or pneumothorax.? ? Mediastinum:? Mediastinal contours appear normal.? Heart size is normal.? ? Bones and chest wall:? No suspicious bony lesions.? Overlying soft tissues appear unremarkable.? ? IMPRESSION:? Given low lung volumes, normal chest. ? ? Dictated by: Agustina Camilo M.D. on 08/12/2021 at 14:21 ? ? Approved by: Agustina Camilo M.D. on 08/12/2021 at 14:22?? CT scan - abdomen/pelvis: Radiologist's Impression: Nic Morrison??46??M??1975 ? Allergy/Adv: No Known Drug Allergies Close Abdomen/Pelvis CT (Signed) Raymon Monaco - 08/11/21 Abdomen/Pelvis CT (Signed) Andrzej Trinidad - 08/01/20 Telemetry Strips 07/30/20 Abdomen Ultrasound (Signed) Andrzej Trinidad - 07/30/20 Chest X-Ray (Signed) Steve Moreno - 07/30/20 [place] [address] CT Scan Report Signed Patient: Nic Morrison MR#: [id number] : 1975 Acct:[id number] Age/Sex: 46 / M Date of Service: 08/11/21 Loc: ED Accession Number: [id number] ?? Procedure: CT abdomen pelvis wo con Ordering Provider: Danilo Gómez D.O. PROCEDURE:? CT ABDOMEN PELVIS WO CON ? INDICATIONS:? Left-sided abdominal pain ? TECHNIQUE:? Noncontrast 5 mm thick sections acquired from the diaphragms to the symphysis.? 5 mm coronal and sagittal reformats were then performed.? For radiation dose reduction, the following was used:? automated exposure control, adjustment of mA and/or kV according to patient size.? ? COMPARISON:? None. ? FINDINGS: Image quality:? Excellent.? ? Lung bases:? Lung bases are clear.? Heart size is normal. ? Solid organs:? Liver: The liver has no mass or intrahepatic biliary ductal dilatation. Biliary: The gallbladder has no gallstones, pericholecystic fluid, gallbladder wall thickening, or surrounding inflammatory change. Pancreas: The pancreas has no mass or ductal dilatation. There is no surrounding inflammation. Spleen: Normal size. There are no masses. Adrenals: No hypertrophy or nodules. Kidneys:? Status post left nephrectomy.? The right kidney has no solid or cystic mass.? No calculus or hydronephrosis. ? Peritoneum and bowel:? The distal esophagus and stomach are normal.? The small bowel has a normal caliber and appearance. The terminal ileum is normal. The large bowel has a normal caliber and appearance.? The appendix is not definitively visualized; however there are no secondary findings to suggest acute appendicitis.? No free fluid or air.? There is a small hiatal hernia. ? Nodes and vessels:? No retroperitoneal or mesenteric adenopathy by size criteria.? The aorta has atherosclerosis with no aneurysmal dilatation. ? Miscellaneous:? There is a fat containing right inguinal hernia. ? PELVIS:? Genitourinary:? The bladder has no wall thickening or mass. No bladder calcifications. ? Bones:? Degenerative changes with no focal abnormality.? Degenerative disc disease at L4-5.? Pars defects of L4 with grade 1 anterolisthesis.? A chronic T12 anterior wedge deformity is seen.? No vertebral body compression fractures.? ? IMPRESSION:? 1. No acute abdominal or pelvic abnormality. 2. Small hiatal hernia. 3. Fat containing right inguinal hernia. 4. Solitary right kidney.? ? ? Dictated by: Raymon Moanco M.D. on 08/11/2021 at 11:43 ? ? Approved by: Raymon Monaco M.D. on 08/11/2021 at 11:51?? ECG Data Attestation: I personally reviewed and interpreted this ECG as follows: Prior ECG tracings: available for review Interpretation: Sinus rhythm rate renal branch block. Rate 86 UT 136 QRS of 132 QTC 478. Patient does have a right bundle branch block. Patient does not have any elevation that is new or depression but does have widened QRS and slight changes V2 V3 compared to EKG from 08/11/2021. MDM Narrative Medical decision making narrative: This is a 46-year-old male who comes in with complaint of epigastric pain which feels like his pancreatitis this is his 3rd visit in the last several days. Patient abdominal labs have been reassuring and a CT yesterday which did not show any acute findings or cause. Was noted that his troponin was negative at less than 0.012. It had risen 2.0 to 3 and today is 0.102 indicating a cardiac cause for his symptomatology. His lipase is still negative. BNP has also el evated from 270 to a 1000. Patient does not have any ST elevation and has a prior right bundle-branch block still present. His creatinine is actually improved from prior on 08/11 he was 2.3 in the morning on the and is 1.58 today. Patient does have multiple risk factors for cardiac history, he does not have any known coronary artery disease. Patient was given aspirin, nitro and heparin drip. Cardiology was consulted, Dr. Diamond increase for plan with aspirin, nitro and heparin drip. Plan for transfer to facility with Cardiology. There is no beds currently regionally patient is boarding in the emergency department. Patient was signed out to Dr. Cannon while awaiting placement. <Krystyna Cannon, DO - Last Filed: 08/13/21 00:45> Lab Data Labs: Lab Results 08/12/21 08/12/21 08/12/21 Range/Units 13:10 13:10 13:10 WBC 8.5 (4.5-11.0) X10^3/uL RBC 4.59 (4.5-5.9) X10^6/uL Hgb 14.0 (13.5-17.5) g/dL Hct 40.8 L (41-53) % MCV 88.9 (80-100) fL MCH 30.5 (26-34) PG MCHC 34.4 (30-36) % RDW 13.8 (11.6-14.8) % Plt Count 202 (150-400) X10^3/uL Neut % (Auto) 85.5 H (50-75) % Lymph % (Auto) 7.2 L (25-40) % Jay % (Auto) 7.0 (3-14) % Eos % (Auto) 0.0 L (2-4) % Baso % (Auto) 0.3 (0-2) % Neut # (Auto) 7200 H (1808-0479) /uL Lymph # (Auto) 600 L (4782-0237) /uL Jay # (Auto) 600 (0-900) /uL Eos # (Auto) 0 (0-450) /uL Baso # (Auto) 0 (0-100) /uL PT 11.9 (10.1-12.7) SECONDS INR 1.1 (0.9-1.3) APTT 33 (26.4-36.2) SECONDS Sodium 138 (137-145) mmol/L Potassium 4.4 (3.4-5.1) mmol/L Chloride 103 (98-107) mmol/L Carbon Dioxide 26 (22-32) mmol/L BUN 27 H (9-20) mg/dL Creatinine 1.58 H (0.66-1.25) mg/dL Estimated GFR 47.0 L (>60) mL/min BUN/Creatinine Ratio 17.1 (6-22) Glucose 186 H (70-100) mg/dL Hemoglobin A1c (4.0-6.0) % Calcium 9.8 (8.4-10.2) mg/dL Total Bilirubin 0.6 (0.2-1.3) mg/dL AST 44 (17-59) IU/L ALT 33 (<50) IU/L Alkaline Phosphatase 111 (38-126) U/L Total Creatine Kinase 1020 H D (55-170) U/L CK-MB (CK-2) 4.60 H (<2.37) ng/mL CK-MB (CK-2) Rel Index 0.5 L (1.5-5.0) % Troponin I 0.102 H (0.01-0.034) ng/mL Total Protein 7.7 (6.3-8.2) g/dL Albumin 4.6 (3.5-5.0) g/dL Globulin 3.1 (1.7-4.1) g/dL Albumin/Globulin Ratio 1.5 (1.0-2.8) Lipase 23 (23-300) U/L Urine RBC (0-5/HPF) Urine WBC (0-5/HPF) Ur Squamous Epith Cells (0-5/HPF) Ur Transition Epith Cell (0-5/HPF) Urine Bacteria (None) Hyaline Casts (None) Granular Casts (None) Urine Mucus (Negative) Ur Culture Indicated? Ethyl Alcohol ( - 10) mg/dL SARS-CoV-2 (PCR) (Negative) 08/12/21 08/12/21 08/12/21 Range/Units 13:10 13:37 13:51 WBC (4.5-11.0) X10^3/uL RBC (4.5-5.9) X10^6/uL Hgb (13.5-17.5) g/dL Hct (41-53) % MCV (80-100) fL MCH (26-34) PG MCHC (30-36) % RDW (11.6-14.8) % Plt Count (150-400) X10^3/uL Neut % (Auto) (50-75) % Lymph % (Auto) (25-40) % Jay % (Auto) (3-14) % Eos % (Auto) (2-4) % Baso % (Auto) (0-2) % Neut # (Auto) (6267-3334) /uL Lymph # (Auto) (0953-2466) /uL Jay # (Auto) (0-900) /uL Eos # (Auto) (0-450) /uL Baso # (Auto) (0-100) /uL PT (10.1-12.7) SECONDS INR (0.9-1.3) APTT (26.4-36.2) SECONDS Sodium (137-145) mmol/L Potassium (3.4-5.1) mmol/L Chloride (98-107) mmol/L Carbon Dioxide (22-32) mmol/L BUN (9-20) mg/dL Creatinine (0.66-1.25) mg/dL Estimated GFR (>60) mL/min BUN/Creatinine Ratio (6-22) Glucose (70-100) mg/dL Hemoglobin A1c 7.8 H (4.0-6.0) % Calcium (8.4-10.2) mg/dL Total Bilirubin (0.2-1.3) mg/dL AST (17-59) IU/L ALT (<50) IU/L Alkaline Phosphatase (38-126) U/L Total Creatine Kinase (55-170) U/L CK-MB (CK-2) (<2.37) ng/mL CK-MB (CK-2) Rel Index (1.5-5.0) % Troponin I (0.01-0.034) ng/mL Total Protein (6.3-8.2) g/dL Albumin (3.5-5.0) g/dL Globulin (1.7-4.1) g/dL Albumin/Globulin Ratio (1.0-2.8) Lipase (23-300) U/L Urine RBC (0-5/HPF) Urine WBC (0-5/HPF) Ur Squamous Epith Cells (0-5/HPF) Ur Transition Epith Cell (0-5/HPF) Urine Bacteria (None) Hyaline Casts (None) Granular Casts (None) Urine Mucus (Negative) Ur Culture Indicated? Ethyl Alcohol < 10 ( - 10) mg/dL SARS-CoV-2 (PCR) Negative (Negative) 08/12/21 08/12/21 08/12/21 Range/Units 15:17 15:35 20:00 WBC (4.5-11.0) X10^3/uL RBC (4.5-5.9) X10^6/uL Hgb (13.5-17.5) g/dL Hct (41-53) % MCV (80-100) fL MCH (26-34) PG MCHC (30-36) % RDW (11.6-14.8) % Plt Count (150-400) X10^3/uL Neut % (Auto) (50-75) % Lymph % (Auto) (25-40) % Jay % (Auto) (3-14) % Eos % (Auto) (2-4) % Baso % (Auto) (0-2) % Neut # (Auto) (3177-0713) /uL Lymph # (Auto) (7102-1577) /uL Jay # (Auto) (0-900) /uL Eos # (Auto) (0-450) /uL Baso # (Auto) (0-100) /uL PT (10.1-12.7) SECONDS INR (0.9-1.3) APTT 83 H* D (26.4-36.2) SECONDS Sodium (137-145) mmol/L Potassium (3.4-5.1) mmol/L Chloride (98-107) mmol/L Carbon Dioxide (22-32) mmol/L BUN (9-20) mg/dL Creatinine (0.66-1.25) mg/dL Estimated GFR (>60) mL/min BUN/Creatinine Ratio (6-22) Glucose (70-100) mg/dL Hemoglobin A1c (4.0-6.0) % Calcium (8.4-10.2) mg/dL Total Bilirubin (0.2-1.3) mg/dL AST (17-59) IU/L ALT (<50) IU/L Alkaline Phosphatase (38-126) U/L Total Creatine Kinase (55-170) U/L CK-MB (CK-2) (<2.37) ng/mL CK-MB (CK-2) Rel Index (1.5-5.0) % Troponin I 0.088 H (0.01-0.034) ng/mL Total Protein (6.3-8.2) g/dL Albumin (3.5-5.0) g/dL Globulin (1.7-4.1) g/dL Albumin/Globulin Ratio (1.0-2.8) Lipase (23-300) U/L Urine RBC 5-10/hpf H (0-5/HPF) Urine WBC 0-1/hpf (0-5/HPF) Ur Squamous Epith Cells 0-1 /hpf (0-5/HPF) Ur Transition Epith Cell 0-1/hpf (0-5/HPF) Urine Bacteria Occasional (0-1) (None) Hyaline Casts 1-5/lpf (None) Granular Casts 5-10/lpf (None) Urine Mucus 1+ H (Negative) Ur Culture Indicated? Cult not indicated Ethyl Alcohol ( - 10) mg/dL SARS-CoV-2 (PCR) (Negative) 08/12/21 Range/Units 21:10 WBC (4.5-11.0) X10^3/uL RBC (4.5-5.9) X10^6/uL Hgb (13.5-17.5) g/dL Hct (41-53) % MCV (80-100) fL MCH (26-34) PG MCHC (30-36) % RDW (11.6-14.8) % Plt Count (150-400) X10^3/uL Neut % (Auto) (50-75) % Lymph % (Auto) (25-40) % Jay % (Auto) (3-14) % Eos % (Auto) (2-4) % Baso % (Auto) (0-2) % Neut # (Auto) (0156-5327) /uL Lymph # (Auto) (3889-9371) /uL Jay # (Auto) (0-900) /uL Eos # (Auto) (0-450) /uL Baso # (Auto) (0-100) /uL PT (10.1-12.7) SECONDS INR (0.9-1.3) APTT (26.4-36.2) SECONDS Sodium (137-145) mmol/L Potassium (3.4-5.1) mmol/L Chloride (98-107) mmol/L Carbon Dioxide (22-32) mmol/L BUN (9-20) mg/dL Creatinine (0.66-1.25) mg/dL Estimated GFR (>60) mL/min BUN/Creatinine Ratio (6-22) Glucose (70-100) mg/dL Hemoglobin A1c (4.0-6.0) % Calcium (8.4-10.2) mg/dL Total Bilirubin (0.2-1.3) mg/dL AST (17-59) IU/L ALT (<50) IU/L Alkaline Phosphatase (38-126) U/L Total Creatine Kinase (55-170) U/L CK-MB (CK-2) (<2.37) ng/mL CK-MB (CK-2) Rel Index (1.5-5.0) % Troponin I 0.064 H (0.01-0.034) ng/mL Total Protein (6.3-8.2) g/dL Albumin (3.5-5.0) g/dL Globulin (1.7-4.1) g/dL Albumin/Globulin Ratio (1.0-2.8) Lipase (23-300) U/L Urine RBC (0-5/HPF) Urine WBC (0-5/HPF) Ur Squamous Epith Cells (0-5/HPF) Ur Transition Epith Cell (0-5/HPF) Urine Bacteria (None) Hyaline Casts (None) Granular Casts (None) Urine Mucus (Negative) Ur Culture Indicated? Ethyl Alcohol ( - 10) mg/dL SARS-CoV-2 (PCR) (Negative) Point of care testing: Point of Care Testing Glucose POC 207 Urine Dip Bedside Urine Glucose Negative Bedside Urine Bilirubin - Negative Bedside Urine Ketone +/- 5 Urine Specific [place] 1.025 Bedside Urine Occult Blood +++ Bedside Urine pH 5.5 Bedside Urine Protein +++ 300 Bedside Urine Urobilinogen - Negative Bedside Urine Nitrite - Negative Bedside Urine Leukocytes - Negative Esterase MDM Narrative Medical decision making narrative: This is a 46-year-old male who comes in with complaint of epigastric pain which feels like his pancreatitis this is his 3rd visit in the last several days. Patient abdominal labs have been reassuring and a CT yesterday which did not show any acute findings or cause. Was noted that his troponin was negative at less than 0.012. It had risen 2.0 to 3 and today is 0.102 indicating a cardiac cause for his symptomatology. His lipase is still negative. BNP has also elevated from 270 to a 1000. Patient does not have any ST elevation and has a prior right bundle-branch block still present. His creatinine is actually improved from prior on 08/11 he was 2.3 in the morning on the and is 1.58 today. Patient does have multiple risk factors for cardiac history, he does not have any known coronary artery disease. Patient was given aspirin, nitro and heparin drip. Cardiology was consulted, Dr. Diamond increase for plan with aspirin, nitro and heparin drip. Plan for transfer to facility with Cardiology. There is no beds currently regionally patient is boarding in the emergency department. Patient was signed out to Dr. Cannon while awaiting placement. Patient signed out to me by Dr. Mccarthy. Previously saw patient yesterday for the troponins are trending downward and never quite in positive range, but extremely close. Remains a nitroglycerin drip, but weaning down. 20:50-Dr. Roger Hess, at [facility] Hospitalist has been updated on patient's symptoms recur the chronology time with turning down troponins and never partially a positive troponin patient does not require for supper and fact re commend stress test only review. He understands our facility is her air crew officer recommended that patient be transferred. However at this time he states patient with not get any further treatment or monitoring other than we can do at this hospital. Discussion with Dr. Humphreys, hospitalist here has been of the symptoms is if the patient agrees with admission here. States patient may need to be transferred however understands beds are tight and understands recommendations of [facility]. Critical Care Time <Leilani Mccarthy, DO - Last Filed: 08/13/21 13:52> Critical Care Time Critical Care Time: Yes Total Critical Care Time: 45 Attestation: The high probability of a clinically significant, sudden or life threatening deterioration of the [cardiac] system(s) required my full and direct attention, intervention and personal management. The aggregate critical care time was [45] minutes. This time is in addition to time spent performing reported procedures but includes the following: [x] Data Review and interpretation [x] Patient assessment and monitoring of vital signs [x] Documentation [x] Medication orders and management Discharge Plan Departure Patient Disposition: Admitted As Inpatient Clinical Impression: Non-ST elevation PA (NSTEMI) Admit Date/Time: 08/12/21 21:41 Admit Provider: Diego Arriola
[2021-08-12 13:31] LABS: Alanine Aminotransferase 33 IU/L (<50); Albumin 4.6 g/dL (3.5-5.0); Albumin Globulin Ratio 1.5 (1.0-2.8); Alkaline Phosphatase 111 U/L (38-126); Aspartate Aminotransferase 44 IU/L (17-59); BUN Creatinine Ratio 17.1 (6-22); Bilirubin Total 0.6 mg/dL (0.2-1.3); Blood Urea Nitrogen 27 mg/dL (9-20); Calcium 9.8 mg/dL (8.4-10.2); Carbon Dioxide 26 mmol/L (22-32); Chloride 103 mmol/L (98-107); Creatine Kinase 1020 U/L (55-170); Globulin 3.1 g/dL (1.7-4.1); Glucose 186 mg/dL (70-100); HEMOLYSIS 18 (0-50); Lipase 23 U/L (23-300); Potassium 4.4 mmol/L (3.4-5.1); Sodium 138 mmol/L (137-145); Total Protein 7.7 g/dL (6.3-8.2)
[2021-08-12 13:44] LABS: Troponin I 0.102 ng/mL (0.01-0.034)
[2021-08-12 13:45] LABS: Ethanol (ETOH) < 10 mg/dL
[2021-08-12 13:46] LABS: CKMB % Relative Index 0.5 % (1.5-5.0)
--- NOTE | 2021-08-12 13:52 | DI.RAD.S_ITS ---
PROCEDURE: XR CHEST 1V INDICATIONS: chest pain TECHNIQUE: One view of the chest was acquired. COMPARISON: [facility], , XR CHEST 1V, 07/30/2020, 15:26. FINDINGS: Surgical changes and devices: None. Lungs and pleura: Low lung volumes. Lungs are clear. No pleural effusions or pneumothorax. Mediastinum: Mediastinal contours appear normal. Heart size is normal. Bones and chest wall: No suspicious bony lesions. Overlying soft tissues appear unremarkable. IMPRESSION: Given low lung volumes, normal chest. Dictated by: Agustina Camilo M.D. on 08/12/2021 at 14:21 Approved by: Agustina Camilo M.D. on 08/12/2021 at 14:22
[2021-08-12 13:58] LABS: INR 1.1 (0.9-1.3); Prothrombin Time 11.9 SECONDS (10.1-12.7)
[2021-08-12] MEDS: ASPIRIN 81 MG CHEW TAB 324 MG PO (13:58)
[2021-08-12] MEDS: NITROGLYCERIN 0.4 MG SL TAB SL (13:59)
[2021-08-12 14:01] LABS: PTT Partial Thromboplastin Tim 33 SECONDS (26.4-36.2)
[2021-08-12] MEDS: HEPARIN 5,000 UNIT/ML VIAL 5000 UNIT IV (14:08)
[2021-08-12] MEDS: HEPARIN DRIP 25,000 UNIT/500 ML IV.SOLN 20 UNIT IV (14:09)
[2021-08-12] MEDS: NITROGLYCERIN 50 MG/250 ML INFUS..BTL IV (14:10)
[2021-08-12 14:38] LABS: COVID19 - ADMIT (NP swab/PCR) Negative (Negative)
[2021-08-12 16:04] LABS: Squamous Epithelial Cell Urine 0-1 /HPF (0-5/HPF); Transitional Epi Cells Urine 0-1/HPF (0-5/HPF); WBC Urine 0-1/HPF (0-5/HPF)
[2021-08-12 16:05] LABS: Bacteria Urine Occasional (0-1); Culture Indicated Urine Cult Not Indicated; Granular Casts Urine 5-10/LPF; Hyaline Casts Urine 1-5/LPF; Mucus Urine 1+ (Negative)
[2021-08-12 16:13] LABS: Troponin I 0.088 ng/mL (0.01-0.034)
[2021-08-12 16:15] LABS: RBC Urine 5-10/HPF (0-5/HPF)
[2021-08-12] MEDS: LORazepam 0.5 MG TABLET PO (17:18)
[2021-08-12] MEDS: FENOFIBRATE, MICRONIZED 67 MG CAPSULE 134 MG PO (19:25)
[2021-08-12] MEDS: METOPROLOL ER 50 MG TABLET 100 MG PO (19:25)
[2021-08-12] MEDS: lisinopriL 20 MG TABLET 40 MG PO (19:25)
[2021-08-12 19:50] LABS: Hemoglobin A1C% w Est Avg Glu 7.8 % (4.0-6.0)
[2021-08-12] MEDS: ATORVASTATIN 20 MG TABLET 80 MG PO (20:31)
[2021-08-12 20:39] LABS: PTT Partial Thromboplastin Tim 83 SECONDS (26.4-36.2)
[2021-08-12] MEDS: INSULIN GLARGINE 100 UNIT/ML 3ML PEN 50 UNIT SUBCUT (21:09)
[2021-08-12] MEDS: INSULIN LISPRO 100 UNIT/ML 3ML VIAL SUBCUT (21:10)
--- NOTE | 2021-08-12 21:35 | DI.ECHO.S_ITS ---
[facility] +---------+ : : [address] : : : : [id number] : : : : Phone: [phone] Echocardiogram Report + + :Name: MYNOR CELESTIN Study Date: 08/13/2021 Height: 68 in : :[facility] ReadingLocation: Weight: 260 lb : : Gender: Male BSA: 2.3 m2 : :: 1975 Age: 46 yrs BP: 145/87 mmHg: :Reason For Study: NSTEMI : :Ordering Physician: GUSTAVO, : :ALEXI Performed By: Kayce Mathis : :Referring: ALEXI CHEN : + + Interpretation Summary The left ventricle is normal in size and wall thickness. The ejection fraction is estimated to be 60-65%. The right ventricle is grossly normal size. The right ventricular systolic function is normal. No significant valvular pathology seen. The IVC is of normal diameter and collapses greater than 50% with a sniff. This suggests a low right atrial pressure of 3 mm Hg. Procedure: A two-dimensional transthoracic echocardiogram with color flow and Doppler was performed. The study quality was technically adequate. A contrast injection of Definity was performed to improve assessment of LV function. There is no prior echocardiogram noted for this patient. The patient was in sinus rhythm with heart rates between 66-74 bpm during the exam. Left Ventricle: The left ventricle is normal in size and wall thickness. There is no thrombus. The ejection fraction is estimated to be 60-65%. There are no focal wall motion abnormalities. MV E/A: 1.0 Med Peak E' Ramone: 4.5 cm/sec E/E' med: 16.2. Right Ventricle: The right ventricle is not well visualized. The right ventricle is grossly normal size. The right ventricular systolic function is normal. Atria: The left atrium is mildly dilated. The right atrium is mildly dilated. A prominent eustachian valve is noted. There is no Doppler evidence for an interatrial shunt. Mitral Valve: The mitral valve leaflets are slightly calcified. There is trace mitral regurgitation. Aortic Valve: The aortic valve is trileaflet. The aortic valve opens well. There is no aortic valve stenosis. There is trace aortic regurgitation. Tricuspid Valve: The tricuspid valve is normal in structure and function. There is mild tricuspid regurgitation. Pulmonary artery pressures cannot be estimated because of the lack of a measurable TR jet velocity. Pulmonic Valve: The pulmonic valve leaflets are thin and pliable; valve motion is normal. There is trace pulmonic regurgitation. Great Vessels: The aortic root is borderline dilated. The dimensions of the ascending aorta are normal. The IVC is of normal diameter and collapses greater than 50% with a sniff. This suggests a low right atrial pressure of 3 mm Hg. Pericardium/ Pleura There is no pericardial effusion. There is an anterior echo-free space consistent with a fat pad. There is no pleural effusion. MMode/2D Measurements & Calculations LVIDd: 4.9 cm LVOT diam: 2.3 cm LVIDs: 2.9 cm Ao root diam: 3.9 cm FS: 41.7 % asc Aorta Diam: 3.0 cm IVSd: 0.91 cm Ao Arch Diam (Prox Trans): 2.9 cm LVPWd: 0.95 cm LV reeec. diameter/BSA (cm/m^2): 2.2 LV sys. diameter/BSA (cm/m^2): 1.3 LA A2 area: 25.4 cm2 RA long axis: 5.6 cm LA A4 area: 24.2 cm2 RA area: 23.2 cm2 LA length (vol): 5.8 cm RA vol: 82.6 ml LA vol: 89.7 ml RA : 36.2 ml/m2 LA vol index: 39.3 ml/m2 IVC diam: 1.3 cm TAPSE: 2.0 cm Doppler Measurements & Calculations Ao V2 max: 124.8 cm/sec LVOT Max Ramone: 90.6 cm/sec Ao V2 mean: 97.4 cm/sec LV V1 max P.3 mmHg Ao max P.2 mmHg LV V1 VTI: 17.8 cm Ao mean P.0 mmHg JACI(I,D): 2.9 cm2 Ao V2 VTI: 25.6 cm JACI(V,D): 3.0 cm2 sev ratio: 0.70 JACI indexed to BSA (cm^2/m^2): 1.3 MV E max ramone: 72.3 cm/sec PA V2 max: 103.4 cm/sec MV A max ramone: 70.2 cm/sec PA V2 mean: 68.3 cm/sec MV E/A: 1.0 PA mean P.1 mmHg Med Peak E' Ramone: 4.5 cm/sec PA pr(Accel): 3.6 mmHg E/E' med: 16.2 Lat Peak E' Ramone: 9.7 cm/sec E/E' lat: 7.4 E/e' average: 11.8 MV dec time: 0.27 sec SV([facility]): 74.5 ml Reading Physician:11:25 AM
[2021-08-12 22:20] LABS: Troponin I 0.064 ng/mL (0.01-0.034)
--- NOTE | 2021-08-12 22:44 | P.HP_ITS ---
History of Present Illness History of Present Illness Date Patient Seen: 08/12/21 Time Patient Seen: 22:00 Chief complaint: Stomach pain DR sent them in Narrative: Mr. Morrison is a 46M with PMH DM2 on insulin, obesity, HTN, HL, CKD stage 3 who comes in to the hospital with four days of epigastric pain. He notes pain from his mid chest down to his upper abdomen. He has nausea and vomiting associated with this. He notes shortness of breath associated with this. He has not had fevers/chills, cough, shortness of breath, or diarrhea. He states his symptoms feels like his previous episode of pancreatitis. He does smoke marijuana, last 5 days ago. He has never had any cardiac stress testing. In the ED workup was done vitals notable for elevated blood pressure of 213/117. Labs notable for WBC 8.5, hgb 14.0, creatinine 1.58, CK 1020, troponin 0.102- >0.088, lipase 23. Chest xray showed no acute process. CT abdomen/pelvis shows no acute process. EKG shows nonspecific ST changes. He was given aspirin. He was started on nitro gtt and his symptoms resolved. He was started on heparin gtt. Cardiology recommended transfer to higher level of care with cardiology and angiogram capability. This was attempted, but no beds available. He was admitted for further treatment. Patient History Medical History Acute kidney injury Arthritis BPH w urinary obs/LUTS Chronic GERD Depression Diabetes mellitus Erectile dysfunction Erectile dysfunction Gastritis Hyperlipidemia Hypertension Pancreatitis Family & Social History Social History: household members spouse Prior Living Arrangements House Safety & Behavioral: Feels Safe in Current Yes Environment Been Physically Hurt or No Threatened By a Person Suicidal Ideation Description None Suicide Plan Description No Plan Tobacco & Substance use: Smoking Status Former smoker alcohol intake current alcohol intake frequency 0-2 drinks per day Substance Use Type marijuana Meds Home Medications and Allergies Home Medications Medication Instructions Recorded Confirmed Type atorvastatin 80 mg tablet 80 mg PO QPM 04/20/20 08/12/21 History fluoxetine 40 mg capsule 40 mg PO DAILY 04/20/20 08/12/21 History insulin glargine 100 unit/mL (3 50 unit SUBCUT QPM 04/20/20 08/12/21 History mL) subcutaneous pen (Lantus Solostar U-100 Insulin) metformin 500 mg tablet 500 mg PO BID 04/20/20 08/12/21 History lisinopril 40 mg tablet 40 mg PO DAILY 04/24/20 08/12/21 History insulin aspart U-100 100 unit/mL See Rx Instructions .ROUTE 08/03/20 08/12/21 History (3 mL) subcutaneous pen (Novolog .COMPLEX PRN Flexpen U-100 Insulin aspart) pantoprazole 40 mg tablet,delayed 40 mg PO QAM 08/03/20 08/12/21 History release metoclopramide HCl 10 mg tablet 10 mg PO Q6H PRN #10 tab 08/11/21 08/12/21 Rx (Reglan) acamprosate 333 mg tablet,delayed 333 mg PO DAILY 08/12/21 08/12/21 History release amlodipine 10 mg tablet 10 mg PO DAILY 08/12/21 08/12/21 History chlorthalidone 25 mg tablet 25 mg PO DAILY 08/12/21 08/12/21 History famotidine 40 mg tablet 40 mg PO DAILY 08/12/21 08/12/21 History fenofibrate nanocrystallized 145 145 mg PO QPM 08/12/21 08/12/21 History mg tablet (Tricor) gabapentin 300 mg capsule 300 mg PO TID 08/12/21 08/12/21 History metoprolol succinate 100 mg 100 mg PO DAILY 08/12/21 08/12/21 History tablet,extended release 24 hr pioglitazone 45 mg tablet 45 mg PO DAILY 08/12/21 08/12/21 History tamsulosin 0.4 mg capsule 0.4 mg PO QPM 08/12/21 08/12/21 History Allergies Allergy/AdvReac Type Severity Reaction Status Date / Time No Known Drug Allergies Allergy Verified 08/12/21 12:49 Review of Systems Review of Systems Narrative: 14 systems reviewed and negative aside from what is noted in HPI Exam Vital Signs (past 8 hours): - 08/12/21 19:45 08/12/21 20:00 08/12/21 20:15 Pulse Rate 96 H 100 H 94 H Respiratory Rate 21 25 H 23 Blood Pressure Pulse Oximetry 96 96 96 08/12/21 20:30 08/12/21 20:45 08/12/21 21:00 Pulse Rate 81 82 73 Respiratory Rate 21 Blood Pressure Pulse Oximetry 95 96 95 08/12/21 21:15 08/12/21 21:30 08/12/21 22:00 Pulse Rate 84 81 89 Respiratory Rate 28 H 26 H 31 H Blood Pressure Pulse Oximetry 94 97 96 08/12/21 22:09 08/12/21 22:23 08/12/21 22:30 Pulse Rate 73 81 79 Respiratory Rate 23 20 20 Blood Pressure 125/76 129/76 157/78 H Pulse Oximetry 95 96 97 08/12/21 23:00 08/12/21 23:01 08/13/21 00:00 Pulse Rate 71 69 81 Respiratory Rate 20 20 21 Blood Pressure 156/77 H Pulse Oximetry 96 95 96 08/13/21 00:01 08/13/21 00:05 08/13/21 01:00 Pulse Rate 80 73 74 Respiratory Rate 21 20 17 Blood Pressure 167/81 H Pulse Oximetry 97 96 95 08/13/21 01:01 08/13/21 01:02 08/13/21 02:00 Pulse Rate 70 66 69 Respiratory Rate 18 18 20 Blood Pressure 137/61 Pulse Oximetry 96 95 96 08/13/21 02:01 08/13/21 02:02 08/13/21 03:00 Pulse Rate 69 69 77 Respiratory Rate 20 20 21 Blood Pressure 164/83 H Pulse Oximetry 96 97 95 08/13/21 03:01 Pulse Rate 72 Respiratory Rate 20 Blood Pressure 169/81 H Pulse Oximetry 97 Oxygen Delivery Method Room Air Narrative Exam Narrative: GEN: no acute distress HEENT: PERRL, moist mucous membranes NECK: trachea midline, no JVD CV: regular rate and rhythm, no murmurs PULM: clear bilaterally, no wheezes, rhonchi, rales ABD: soft, nontender, nondistended, no organomegaly, normal bowel sounds EXT: warm and well perfused with no edema NEURO: awake, alert, no focal deficits PSYCH: pleasant, cooperative Objective Labs Result Diagrams: 08/12/21 13:10 08/12/21 13:10 Labs: Laboratory Results - last 24 hr 08/12/21 08/12/21 08/12/21 13:10 13:10 13:10 WBC 8.5 RBC 4.59 Hgb 14.0 Hct 40.8 L MCV 88.9 MCH 30.5 MCHC 34.4 RDW 13.8 Plt Count 202 Neut % (Auto) 85.5 H Lymph % (Auto) 7.2 L [place] % (Auto) 7.0 Eos % (Auto) 0.0 L Baso % (Auto) 0.3 Neut # (Auto) 7200 H Lymph # (Auto) 600 L [place] # (Auto) 600 Eos # (Auto) 0 Baso # (Auto) 0 PT 11.9 INR 1.1 APTT 33 Sodium 138 Potassium 4.4 Chloride 103 Carbon Dioxide 26 BUN 27 H Creatinine 1.58 H Estimated GFR 47.0 L BUN/Creatinine Ratio 17.1 Glucose 186 H Hemoglobin A1c Calcium 9.8 Total Bilirubin 0.6 AST 44 ALT 33 Alkaline Phosphatase 111 Total Creatine Kinase 1020 H D CK-MB (CK-2) 4.60 H CK-MB (CK-2) Rel Index 0.5 L Troponin I 0.102 H Total Protein 7.7 Albumin 4.6 Globulin 3.1 Albumin/Globulin Ratio 1.5 Lipase 23 Urine RBC Urine WBC Ur Squamous Epith Cells Ur Transition Epith Cell Urine Bacteria Hyaline Casts Granular Casts Urine Mucus Ur Culture Indicated? Ethyl Alcohol SARS-CoV-2 (PCR) 08/12/21 08/12/21 08/12/21 13:10 13:37 13:51 WBC RBC Hgb Hct MCV MCH MCHC RDW Plt Count Neut % (Auto) Lymph % (Auto) [place] % (Auto) Eos % (Auto) Baso % (Auto) Neut # (Auto) Lymph # (Auto) [place] # (Auto) Eos # (Auto) Baso # (Auto) PT INR APTT Sodium Potassium Chloride Carbon Dioxide BUN Creatinine Estimated GFR BUN/Creatinine Ratio Glucose Hemoglobin A1c 7.8 H Calcium Total Bilirubin AST ALT Alkaline Phosphatase Total Creatine Kinase CK-MB (CK-2) CK-MB (CK-2) Rel Index Troponin I Total Protein Albumin Globulin Albumin/Globulin Ratio Lipase Urine RBC Urine WBC Ur Squamous Epith Cells Ur Transition Epith Cell Urine Bacteria Hyaline Casts Granular Casts Urine Mucus Ur Culture Indicated? Ethyl Alcohol < 10 SARS-CoV-2 (PCR) Negative 08/12/21 08/12/21 08/12/21 15:17 15:35 20:00 WBC RBC Hgb Hct MCV MCH MCHC RDW Plt Count Neut % (Auto) Lymph % (Auto) [place] % (Auto) Eos % (Auto) Baso % (Auto) Neut # (Auto) Lymph # (Auto) [place] # (Auto) Eos # (Auto) Baso # (Auto) PT INR APTT 83 H* D Sodium Potassium Chloride Carbon Dioxide BUN Creatinine Estimated GFR BUN/Creatinine Ratio Glucose Hemoglobin A1c Calcium Total Bilirubin AST ALT Alkaline Phosphatase Total Creatine Kinase CK-MB (CK-2) CK-MB (CK-2) Rel Index Troponin I 0.088 H Total Protein Albumin Globulin Albumin/Globulin Ratio Lipase Urine RBC 5-10/hpf H Urine WBC 0-1/hpf Ur Squamous Epith Cells 0-1 /hpf Ur Transition Epith Cell 0-1/hpf Urine Bacteria Occasional (0-1) Hyaline Casts 1-5/lpf Granular Casts 5-10/lpf Urine Mucus 1+ H Ur Culture Indicated? Cult not indicated Ethyl Alcohol SARS-CoV-2 (PCR) 08/12/21 08/13/21 21:10 02:20 WBC RBC Hgb Hct MCV MCH MCHC RDW Plt Count Neut % (Auto) Lymph % (Auto) [place] % (Auto) Eos % (Auto) Baso % (Auto) Neut # (Auto) Lymph # (Auto) [place] # (Auto) Eos # (Auto) Baso # (Auto) PT INR APTT 58 H D Sodium Potassium Chloride Carbon Dioxide BUN Creatinine Estimated GFR BUN/Creatinine Ratio Glucose Hemoglobin A1c Calcium Total Bilirubin AST ALT Alkaline Phosphatase Total Creatine Kinase CK-MB (CK-2) CK-MB (CK-2) Rel Index Troponin I 0.064 H Total Protein Albumin Globulin Albumin/Globulin Ratio Lipase Urine RBC Urine WBC Ur Squamous Epith Cells Ur Transition Epith Cell Urine Bacteria Hyaline Casts Granular Casts Urine Mucus Ur Culture Indicated? Ethyl Alcohol SARS-CoV-2 (PCR) Assessment & Plan Assessment & Plan narrative: Mr. Morrison is a 46M with PMH DM, HTN, CKD stage 3 who comes in with days of epigastric pain found to have elevated troponin 1. NSTEMI, Acute -EKG shows nonspecific changes -troponin initially elevated at 0.102, now downtrending -nitro did relieve pain -wean nitro as able -continue heparin gtt, aspirin, statin -attempted transfer to hospital with cardiology and angiogram capability, but no hospital beds available -order ECHO and stress test 2. Epigastric pain with vomiting -overall presentation is not classic for cardiac -while ruling out cardiac will also treat abdominal cause -CT showed no acute process, lipase normal -other etiology include gastritis vs cannabis hyperemesis vs diabetic gastroparesis -treat with PPI and reglan 3. HTN -continue metoprolol, lisinopril, and amlodipine 4. Type 2 Diabetes, on insulin -continue insulin -ordered insulin sliding scale 5. HL -continue statin as above 6. Obesity -BMI 39.5 -follow up with PCP 7. BPH -continue tamsulosin 8. GERD -continue PPI 9. Depression -continue fluoxetine 10. CKD stage 3 -creatinine near baseline of approximately 1.5 -avoid nephrotoxins CODE: Full Proxy: Narcisodylan Morrison, spouse I have utilized all available resources to reconcile patient's home medications. Time Spent With Patient Critical Care time: I spent a total of [] minutes of critical care time on this patient's care today; this time is exclusive of procedural time. Quality MIPS - Admit I confirm the patient?s Advance Care Plan is present, Code status is documented, Surrogate decision maker is in patient?s record [If Yes, STOP here]: Yes
[2021-08-12] MEDS: ASPIRIN EC 81 MG TABLET PO (23:07)
[2021-08-12] MEDS: PANTOPRAZOLE 40 MG VIAL IV (23:07)
[2021-08-12] MEDS: diphenhydrAMINE 25 MG TABLET PO (23:07)
[2021-08-13] VITALS (63 sets, daily range): BP systolic 133–172; BP diastolic 61–92; PULSE 62–87; RESP 13–36; TEMP 36.3–36.6; O2SAT 93–99
[2021-08-13] MEDS: AMLODIPINE 5 MG TABLET 10 MG PO ×2 (00:15→08:41)
[2021-08-13 02:39] LABS: PTT Partial Thromboplastin Tim 58 SECONDS (26.4-36.2)
[2021-08-13 05:06] LABS: Add Manual Diff / Slide Review NO; Basophils Absolute Auto 0 /uL (0-100); Basophils Percent Auto 0.5 % (0-2); Eosinophils Absolute Auto 0 /uL (0-450); Eosinophils Percent Auto 0.6 % (2-4); Hematocrit 38.2 % (41-53); Lymphocytes Absolute Auto 1500 /uL (1100-4500); Lymphocytes Percent Auto 20.3 % (25-40); Mean Corpuscular HGB Conc 34.1 % (30-36); Mean Corpuscular Hemoglobin 30.2 PG (26-34); Mean Corpuscular Volume 88.4 fL (80-100); Monocytes Absolute Auto 600 /uL (0-900); Monocytes Percent Auto 8.2 % (3-14); Neutrophils Absolute Auto 5200 /uL (1500-7000); Neutrophils Percent Auto 70.4 % (50-75); Platelet Count 204 X10^3/uL (150-400); Red Blood Cell Count 4.32 X10^6/uL (4.5-5.9); Red Cell Distribution Width 13.6 % (11.6-14.8); White Blood Cell Count 7.4 X10^3/uL (4.5-11.0)
[2021-08-13 05:23] LABS: BUN Creatinine Ratio 15.8 (6-22); Blood Urea Nitrogen 25 mg/dL (9-20); Calcium 9.7 mg/dL (8.4-10.2); Carbon Dioxide 31 mmol/L (22-32); Chloride 103 mmol/L (98-107); Glucose 166 mg/dL (70-100); HEMOLYSIS 28 (0-50); Sodium 135 mmol/L (137-145)
[2021-08-13 05:29] LABS: Troponin I 0.039 ng/mL (0.01-0.034)
[2021-08-13] MEDS: ACETAMINOPHEN 325 MG TABLET 650 MG PO (06:44)
[2021-08-13] MEDS: METOPROLOL ER 50 MG TABLET 100 MG PO (08:40)
[2021-08-13] MEDS: FLUoxetine 20 MG CAPSULE 40 MG PO (08:41)
[2021-08-13] MEDS: lisinopriL 20 MG TABLET 40 MG PO (08:41)
[2021-08-13] MEDS: CLOPIDOGREL 75 MG TABLET 300 MG PO (11:00)
[2021-08-13] MEDS: ASPIRIN 81 MG CHEW TAB 162 MG PO (12:00)
--- NOTE | 2021-08-13 12:32 | PM.PN.1 ---
Subjective Subjective Date Patient Seen: 08/13/21 Interval history: BRIEF HPI 46-YEAR-OLD MALE MORBIDLY OBESE ADMITTED TO THE HOSPITAL WITH A NON-STEMI HAS A HISTORY OF HYPERTENSION, HYPERLIPIDEMIA, DIABETES, HE IS MORBIDLY OBESE. TODAY DENIES ANY INCREASING SHORTNESS OF BREATH FEELING MUCH BETTER NO CHEST PRESSURE OR CHEST PAIN DENIES ANY NAUSEA OR VOMITING NO SYNCOPE OR PRESYNCOPAL SYMPTOMS REPORTED NO PRIOR HISTORY OF CAD. DENIES PRIOR STRESS TESTING REPORTED PRIOR ECHOCARDIOGRAM Exam Vital Signs (past 8 hours): - 08/13/21 05:00 08/13/21 05:01 08/13/21 06:00 Temperature Pulse Rate 72 74 69 Respiratory Rate 20 17 18 Blood Pressure 165/85 H Pulse Oximetry 96 97 97 08/13/21 06:01 08/13/21 06:15 08/13/21 06:30 Temperature Pulse Rate 69 82 87 Respiratory Rate 20 28 H 29 H Blood Pressure 149/77 H Pulse Oximetry 95 97 96 08/13/21 06:45 08/13/21 07:00 08/13/21 07:01 Temperature Pulse Rate 71 70 69 Respiratory Rate 28 H 22 22 Blood Pressure 145/87 H 145/87 H Pulse Oximetry 98 97 97 08/13/21 07:15 08/13/21 07:30 08/13/21 07:45 Temperature Pulse Rate 78 66 73 Respiratory Rate 29 H 21 25 H Blood Pressure Pulse Oximetry 98 96 97 08/13/21 08:00 08/13/21 08:01 08/13/21 08:15 Temperature 97.8 F Pulse Rate 76 73 73 Respiratory Rate 20 24 22 Blood Pressure 159/85 H 159/85 H Pulse Oximetry 97 96 97 08/13/21 08:30 08/13/21 08:40 08/13/21 08:41 Temperature Pulse Rate 72 77 77 Respiratory Rate 22 Blood Pressure 159/85 H 159/85 H Pulse Oximetry 97 08/13/21 08:45 08/13/21 09:00 08/13/21 09:10 Temperature Pulse Rate 83 75 66 Respiratory Rate 24 20 Blood Pressure 172/92 H 161/77 H Pulse Oximetry 98 98 08/13/21 09:15 08/13/21 09:30 08/13/21 09:45 Temperature Pulse Rate 80 74 66 Respiratory Rate 26 H 19 32 H Blood Pressure Pulse Oximetry 98 98 98 08/13/21 10:00 Temperature Pulse Rate 68 Respiratory Rate 21 Blood Pressure 161/77 H Pulse Oximetry 97 Oxygen Delivery Method Room Air Oxygen Flow Rate 0 Narrative Exam Narrative: NO ACUTE DISTRESS. PATIENT IS ALERT ORIENTED X3. MORBIDLY OBESE. APPEARS OLDER THAN STATED AGE HEAD ATRAUMATIC NORMOCEPHALIC NECK : SUPPLE WITHOUT ADENOPATHY NO CAROTID BRUITS EYE: EOMI, PERRLA, NORMAL CONJUNCTIVA; NO JAUNDICE CHEST: REGULAR RATE. NO RUBS. PMI IS NON DISPLACED. NO MURMURS; NORMAL S1-S2 PULMONARY: DECREASED BS OVER THE BASES. MILD BIBASILAR CRACKLES NOTED; NO INCREASED DULLNESS TO PERCUSSION. NO WHEEZING. NO RALES. ABDOMEN: SIGNIFICANTLY OBESE ABDOMEN BUT NONTENDER. NONDISTENDED. BOWEL SOUNDS ARE PRESENT IN ALL 4 QUADRANTS. NO MASS. EXTREMITIES: 1+ NONPITTING BILATERAL LOWER EXTREMITY EDEMA.. NO CYANOSIS CLUBBING NOTED. NEURO: CRANIAL NERVES 2-12 GROSSLY INTACT. NO FOCAL NEUROLOGICAL DEFICIT NOTED. MSK: NORMAL RANGE OF MOTION FOR AGE. NO JOINT EFFUSION. SKIN: NORMAL FOR ETHNICITY; NO ECCHYMOSIS. NO LESION. GOOD TURGOR.; NO RASHES : NORMAL EXTERNAL GENITALIA. PSYCH : APPROPRIATE MOOD AND AFFECT. ALERT AWAKE ORIENTED X3 Objective Labs Result Diagrams: 08/13/21 04:25 08/13/21 04:25 Labs: Laboratory Results - last 24 hr 08/12/21 08/12/21 08/12/21 13:10 13:10 13:10 WBC 8.5 RBC 4.59 Hgb 14.0 Hct 40.8 L MCV 88.9 MCH 30.5 MCHC 34.4 RDW 13.8 Plt Count 202 Neut % (Auto) 85.5 H Lymph % (Auto) 7.2 L [place] % (Auto) 7.0 Eos % (Auto) 0.0 L Baso % (Auto) 0.3 Neut # (Auto) 7200 H Lymph # (Auto) 600 L [place] # (Auto) 600 Eos # (Auto) 0 Baso # (Auto) 0 PT 11.9 INR 1.1 APTT 33 Sodium 138 Potassium 4.4 Chloride 103 Carbon Dioxide 26 BUN 27 H Creatinine 1.58 H Estimated GFR 47.0 L BUN/Creatinine Ratio 17.1 Glucose 186 H Hemoglobin A1c Calcium 9.8 Total Bilirubin 0.6 AST 44 ALT 33 Alkaline Phosphatase 111 Total Creatine Kinase 1020 H D CK-MB (CK-2) 4.60 H CK-MB (CK-2) Rel Index 0.5 L Troponin I 0.102 H Total Protein 7.7 Albumin 4.6 Globulin 3.1 Albumin/Globulin Ratio 1.5 Lipase 23 Urine RBC Urine WBC Ur Squamous Epith Cells Ur Transition Epith Cell Urine Bacteria Hyaline Casts Granular Casts Urine Mucus Ur Culture Indicated? Ethyl Alcohol SARS-CoV-2 (PCR) 08/12/21 08/12/21 08/12/21 13:10 13:37 13:51 WBC RBC Hgb Hct MCV MCH MCHC RDW Plt Count Neut % (Auto) Lymph % (Auto) [place] % (Auto) Eos % (Auto) Baso % (Auto) Neut # (Auto) Lymph # (Auto) [place] # (Auto) Eos # (Auto) Baso # (Auto) PT INR APTT Sodium Potassium Chloride Carbon Dioxide BUN Creatinine Estimated GFR BUN/Creatinine Ratio Glucose Hemoglobin A1c 7.8 H Calcium Total Bilirubin AST ALT Alkaline Phosphatase Total Creatine Kinase CK-MB (CK-2) CK-MB (CK-2) Rel Index Troponin I Total Protein Albumin Globulin Albumin/Globulin Ratio Lipase Urine RBC Urine WBC Ur Squamous Epith Cells Ur Transition Epith Cell Urine Bacteria Hyaline Casts Granular Casts Urine Mucus Ur Culture Indicated? Ethyl Alcohol < 10 SARS-CoV-2 (PCR) Negative 08/12/21 08/12/21 08/12/21 15:17 15:35 20:00 WBC RBC Hgb Hct MCV MCH MCHC RDW Plt Count Neut % (Auto) Lymph % (Auto) [place] % (Auto) Eos % (Auto) Baso % (Auto) Neut # (Auto) Lymph # (Auto) [place] # (Auto) Eos # (Auto) Baso # (Auto) PT INR APTT 83 H* D Sodium Potassium Chloride Carbon Dioxide BUN Creatinine Estimated GFR BUN/Creatinine Ratio Glucose Hemoglobin A1c Calcium Total Bilirubin AST ALT Alkaline Phosphatase Total Creatine Kinase CK-MB (CK-2) CK-MB (CK-2) Rel Index Troponin I 0.088 H Total Protein Albumin Globulin Albumin/Globulin Ratio Lipase Urine RBC 5-10/hpf H Urine WBC 0-1/hpf Ur Squamous Epith Cells 0-1 /hpf Ur Transition Epith Cell 0-1/hpf Urine Bacteria Occasional (0-1) Hyaline Casts 1-5/lpf Granular Casts 5-10/lpf Urine Mucus 1+ H Ur Culture Indicated? Cult not indicated Ethyl Alcohol SARS-CoV-2 (PCR) 08/12/21 08/13/21 08/13/21 21:10 02:20 04:25 WBC 7.4 RBC 4.32 L Hgb 13.0 L Hct 38.2 L MCV 88.4 MCH 30.2 MCHC 34.1 RDW 13.6 Plt Count 204 Neut % (Auto) 70.4 Lymph % (Auto) 20.3 L [place] % (Auto) 8.2 Eos % (Auto) 0.6 L Baso % (Auto) 0.5 Neut # (Auto) 5200 Lymph # (Auto) 1500 [place] # (Auto) 600 Eos # (Auto) 0 Baso # (Auto) 0 PT INR APTT 58 H D Sodium Potassium Chloride Carbon Dioxide BUN Creatinine Estimated GFR BUN/Creatinine Ratio Glucose Hemoglobin A1c Calcium Total Bilirubin AST ALT Alkaline Phosphatase Total Creatine Kinase CK-MB (CK-2) CK-MB (CK-2) Rel Index Troponin I 0.064 H Total Protein Albumin Globulin Albumin/Globulin Ratio Lipase Urine RBC Urine WBC Ur Squamous Epith Cells Ur Transition Epith Cell Urine Bacteria Hyaline Casts Granular Casts Urine Mucus Ur Culture Indicated? Ethyl Alcohol SARS-CoV-2 (PCR) 08/13/21 04:25 WBC RBC Hgb Hct MCV MCH MCHC RDW Plt Count Neut % (Auto) Lymph % (Auto) [place] % (Auto) Eos % (Auto) Baso % (Auto) Neut # (Auto) Lymph # (Auto) [place] # (Auto) Eos # (Auto) Baso # (Auto) PT INR APTT Sodium 135 L Potassium 4.0 Chloride 103 Carbon Dioxide 31 BUN 25 H Creatinine 1.58 H Estimated GFR 47.0 L BUN/Creatinine Ratio 15.8 Glucose 166 H Hemoglobin A1c Calcium 9.7 Total Bilirubin AST ALT Alkaline Phosphatase Total Creatine Kinase CK-MB (CK-2) CK-MB (CK-2) Rel Index Troponin I 0.039 H Total Protein Albumin Globulin Albumin/Globulin Ratio Lipase Urine RBC Urine WBC Ur Squamous Epith Cells Ur Transition Epith Cell Urine Bacteria Hyaline Casts Granular Casts Urine Mucus Ur Culture Indicated? Ethyl Alcohol SARS-CoV-2 (PCR) PFSH Medical History Acute kidney injury Arthritis BPH w urinary obs/LUTS Chronic GERD Depression Diabetes mellitus Erectile dysfunction Erectile dysfunction Gastritis Hyperlipidemia Hypertension Pancreatitis Social History household members: spouse Smoking Status: Former smoker alcohol intake: current Assessment & Plan Assessment & Plan narrative: PROBLEM LIST NON STEMI. MEDICAL MANAGEMENT FOR NOW ACUTE ON CHRONIC KIDNEY DISEASE STAGE 3 TO 4 ASSOCIATED WITH NEPHROSCLEROSIS DUE TO HYPERTENSION AND DIABETES ANEMIA OF CHRONIC DISEASE FAIRLY CONTROLLED DIABETES. INSULIN-DEPENDENT HYPERTENSION PER HISTORY DYSLIPIDEMIA PER HISTORY POSSIBLE BPH PER HISTORY POSSIBLE OBESITY HYPOVENTILATORY SYNDROME. DUE TO BODY HABITUS PLAN PATIENT HAS BEEN STARTED ON ASPIRIN DAILY WILL ALSO LOAD AND START ON PLAVIX PATIENT IS ON A BETA-TARSHA WHICH CONTINUE AT THE CURRENT DOSE WILL ALSO CONTINUE LISINOPRIL AND AMLODIPINE. DISCONTINUE HEPARIN DRIP STARTED ON SUBQ HEPARIN INSTEAD ECHOCARDIOGRAM RESULTS NOTED WITH NO SIGNIFICANT FINDINGS NO SIGNIFICANT VALVULOPATHY EJECTION FRACTION ABOUT 60% REFERRED TO TERTIARY FACILITY FOR HIGHER LEVEL OF CARE OF CARDIOLOGY IF INDICATED CLINICALLY KEEP ON TELEMETRY AT ALL TIMES REPEAT EKG IN THE MORNING IF INDICATED CLINICALLY CONTINUE ANTI-LIPID THERAPY WELL INSULIN SLIDING SCALES TO MAINTAIN PROPER BLOOD SUGAR LEVEL ADD NEEDED MEDS FOR STRICT BLOOD PRESSURE CONTROL WELL MONITOR KIDNEY FUNCTION CLOSELY WITH DAILY LABS STRICT INPUT AND OUTPUT AVOID NEPHROTOXIC SUBSTANCES HOWEVER WILL CONTINUE HIS JOIE INHIBITOR PER HOME DOSE FOR NOW CONSIDER LOW RATE IV FLUID IF INDICATED CLINICALLY ADDITIONAL MANAGEMENT AND DISCHARGE PER CLINICAL COURSE Time Spent With Patient Critical Care time: I spent a total of [] minutes of critical care time on this patient's care today; this time is exclusive of procedural time.
[2021-08-13] MEDS: FAMOTIDINE 20 MG TABLET 40 MG PO (12:45)
[2021-08-13] MEDS: SUCRALFATE 1 GM TABLET PO ×3 (12:45→20:45)
[2021-08-13 13:08] LABS: PTT Partial Thromboplastin Tim 61 SECONDS (26.4-36.2)
--- NOTE | 2021-08-13 15:36 | CM.DANOTE ---
DCP Assessment: Patient is a 46 yr old male who came in to the ED for NSTEMI. CM met with patient at the bedside and explained role. Patient was alert and oriented x4 during CM visit. patient currently lives in [place] with his Narciso in a single level home with only a few steps to get into the home. Patient was up walking around his room during CM visit and was very independent with ambulation. Patient states he is Independent with all ADLs and drives at his base line. Patient works at the [employer] [place]. I: [facility] [employer] [facility] plan service marcus Plan: DC home with no identified DC planning needs at this time. CM department will follow to assist with any new DC planning needs that may arise. Gris Quiñonez RN Case manger Discharge Planning/Care Management Discharge Assessment Start: 08/13/21 15:35 Freq: Status: Active Protocol: Document 08/13/21 15:35 HS (Rec: 08/13/21 15:36 HS [id number]) Discharge Planning Assessment Assigned Medical Aides Teacher Gris quiñonez RNcommunication arts lecturer DPOA/Assigned Designee Name Narciso Morrison () Contact Information [phone] Advance Directives? No History Provided By Patient,Medical Record Has Patient been admitted in last 30 No days? Prior Living Arrangements House Household Members spouse Type of transporation used prior to Drives own vehicle admit Independent with ADL's Yes Is patient alert and oriented? Yes Caregiver for Another No Barriers to Discharge No Discharge Plan Home Referrals Initiated None needed Whiteboard Updated in Patient Room with Yes name and ext. # of Medical Aides Teacher Review Status In Process Next Review Type Continued Stay Review
[2021-08-13] MEDS: TAMSULOSIN 0.4 MG CAPSULE PO (16:54)
[2021-08-13] MEDS: ATORVASTATIN 20 MG TABLET 80 MG PO (16:54)
[2021-08-13] MEDS: INSULIN GLARGINE 100 UNIT/ML 3ML PEN 50 UNIT SUBCUT (16:59)
[2021-08-13 18:19] LABS: Troponin I 0.025 ng/mL (0.01-0.034)
[2021-08-13] MEDS: HEPARIN 5,000 UNIT/ML VIAL 5000 UNIT SUBCUT (20:44)
[2021-08-13] MEDS: FAMOTIDINE 20 MG TABLET PO (20:45)
[2021-08-14] VITALS (11 sets, daily range): BP systolic 120–155; BP diastolic 60–81; PULSE 62–74; RESP 16; TEMP 36.2–36.9; O2SAT 98–99
[2021-08-14] MEDS: ZOLPIDEM 5 MG TABLET PO (00:16)
[2021-08-14 06:01] LABS: Basophils Absolute Auto 100 /uL (0-100); Basophils Percent Auto 0.9 % (0-2); Eosinophils Absolute Auto 200 /uL (0-450); Eosinophils Percent Auto 2.4 % (2-4); Hematocrit 37.7 % (41-53); Hemoglobin 12.9 g/dL (13.5-17.5); Lymphocytes Absolute Auto 1600 /uL (1100-4500); Lymphocytes Percent Auto 25.7 % (25-40); Mean Corpuscular HGB Conc 34.3 % (30-36); Mean Corpuscular Hemoglobin 30.1 PG (26-34); Mean Corpuscular Volume 87.7 fL (80-100); Monocytes Absolute Auto 600 /uL (0-900); Monocytes Percent Auto 9.6 % (3-14); Neutrophils Absolute Auto 3900 /uL (1500-7000); Neutrophils Percent Auto 61.4 % (50-75); Platelet Count 182 X10^3/uL (150-400); Red Cell Distribution Width 13.8 % (11.6-14.8); White Blood Cell Count 6.4 X10^3/uL (4.5-11.0)
[2021-08-14 06:44] LABS: Alanine Aminotransferase 31 IU/L (<50); Albumin 3.8 g/dL (3.5-5.0); Albumin Globulin Ratio 1.3 (1.0-2.8); Alkaline Phosphatase 91 U/L (38-126); Aspartate Aminotransferase 49 IU/L (17-59); BUN Creatinine Ratio 17.4 (6-22); Bilirubin Total 0.6 mg/dL (0.2-1.3); Blood Urea Nitrogen 28 mg/dL (9-20); Calcium 9.5 mg/dL (8.4-10.2); Carbon Dioxide 30 mmol/L (22-32); Chloride 102 mmol/L (98-107); Globulin 2.9 g/dL (1.7-4.1); Glucose 250 mg/dL (70-100); HEMOLYSIS 35 (0-50); Potassium 4.1 mmol/L (3.4-5.1); Sodium 133 mmol/L (137-145); Total Protein 6.7 g/dL (6.3-8.2)
[2021-08-14 06:47] LABS: Add Manual Diff / Slide Review SLIDE REVIEW
[2021-08-14 06:49] LABS: Platelet Estimate Adequate on smear; RBC Morphology Normal Morphology
[2021-08-14 06:51] LABS: Troponin I < 0.012 ng/mL (0.01-0.034)
[2021-08-14 07:24] LABS: Creatine Kinase 835 U/L (55-170)
[2021-08-14] MEDS: ASPIRIN 81 MG CHEW TAB 162 MG PO (08:28)
[2021-08-14] MEDS: METOPROLOL ER 50 MG TABLET 100 MG PO (08:29)
[2021-08-14] MEDS: AMLODIPINE 5 MG TABLET 10 MG PO (08:30)
[2021-08-14] MEDS: lisinopriL 20 MG TABLET 40 MG PO (08:30)
[2021-08-14] MEDS: FLUoxetine 20 MG CAPSULE 40 MG PO (08:30)
[2021-08-14] MEDS: FAMOTIDINE 20 MG TABLET PO (08:31)
[2021-08-14] MEDS: CLOPIDOGREL 75 MG TABLET PO (08:31)
[2021-08-14] MEDS: SUCRALFATE 1 GM TABLET PO (08:31)
[2021-08-14] MEDS: HEPARIN 5,000 UNIT/ML VIAL 5000 UNIT SUBCUT (08:32)
--- NOTE | 2021-08-14 08:50 | P.DS_ITS ---
History of Present Illness History of Present Illness Date Patient Seen: 08/14/21 Chief complaint: Stomach pain DR sent them in Narrative: Mr. Morrison is a 46M with PMH DM2 on insulin, obesity, HTN, HL, CKD stage 3 who comes in to the hospital with four days of epigastric pain. He notes pain from his mid chest down to his upper abdomen. He has nausea and vomiting associated with this. He notes shortness of breath associated with this. He has not had fevers/chills, cough, shortness of breath, or diarrhea. He states his symptoms feels like his previous episode of pancreatitis. He does smoke marijuana, last 5 days ago. He has never had any cardiac stress testing. In the ED workup was done vitals notable for elevated blood pressure of 213/117. Labs notable for WBC 8.5, hgb 14.0, creatinine 1.58, CK 1020, troponin 0.102- >0.088, lipase 23. Chest xray showed no acute process. CT abdomen/pelvis shows no acute process. EKG shows nonspecific ST changes. He was given aspirin. He was started on nitro gtt and his symptoms resolved. He was started on heparin gtt. Cardiology recommended transfer to higher level of care with cardiology and angiogram capability. This was attempted, but no beds available. He was admitted for further treatment. Discharge Providers Provider Date of admission: 08/12/21 21:41 Discharge Date: 08/14/21 Primary care physician: Azul Dunbar DO Consults: NONE Discharge provider: Alonso Garcia DO Summary Hospital Course Discharge Diagnosis: NON STEMI.? MEDICALLY MANAGED ACUTE ON CHRONIC KIDNEY DISEASE STAGE 3 TO 4 ASSOCIATED WITH NEPHROSCLEROSIS DUE TO HYPERTENSION AND DIABETES ANEMIA OF? CHRONIC DISEASE FAIRLY CONTROLLED DIABETES.? INSULIN-DEPENDENT HYPERTENSION PER HISTORY DYSLIPIDEMIA PER HISTORY POSSIBLE BPH PER HISTORY POSSIBLE OBESITY HYPOVENTILATORY SYNDROME.? USES A CPAP AT HOME Hospital Course: THIS IS A MORBIDLY OBESE 46-YEAR-OLD MALE ADMITTED TO THE HOSPITAL WITH ATYPICAL CHEST PAIN. ELEVATED TROPONIN NOTED ON ADMISSION. THIS WAS LIKELY RELATED TO A NON STEMI. PATIENT WAS TREATED MEDICALLY AND STARTED ON PLAVIX. ASPIRIN ALSO ADDED. PATIENT HAS MULTIPLE COMORBIDITIES INCLUDE OBESITY, HYPERTENSION, HYPERLIPIDEMIA, DIABETES. HE WILL NEED TO BE EVALUATED BY AND LEFT HEART CATHETERIZATION TO RULE OUT ANY SIGNIFICANT CORONARY ARTERY DISEASE. HOWEVER PATIENT DOES HAVE CHRONIC KIDNEY DISEASE WHICH I SUSPECT IS STAGE 3-4. THIS COULD IMPEDE THE DECISION REGARDING A LEFT HEART CATHETERIZATION HOWEVER ISOTONIC CONTRAST DYES COULD BE USED AT LIMITED-DOSE IF NEEDED. IN ANY CASE, PATIENT APPEARED TO BE CLINICALLY STABLE AT THIS TIME. HE WILL BE DISCHARGED TO HOME. ADDITIONAL MANAGEMENT WILL BE DEFERRED TO HIS OUTPATIENT PROVIDERS. ACTIVITIES WILL BE TOLERATED PATIENT WILL NEED TO BE ON A CARDIAC/ DIABETIC DIET COME BY FOLLOW-UP WITH PRIMARY CARE PHYSICIAN WITHIN 1-2 WEEKS PRIMARY CARE PHYSICIAN TO REFER TO CARDIOLOGY PULMONOLOGY Status at Discharge Cognitive/behavioral status at discharge: oriented Functional status at discharge: independent ambulation Overall status at discharge: patient is back to baseline Time Spent with Patient Time spent: Greater than 30 minutes Exam Vital Signs (past 8 hours): - 08/14/21 04:00 08/14/21 04:10 08/14/21 04:11 Temperature 98.5 F Pulse Rate 74 70 70 Respiratory Rate 16 Blood Pressure 120/60 120/60 Pulse Oximetry 98 98 98 08/14/21 08:00 08/14/21 08:09 08/14/21 08:10 Temperature 98.3 F Pulse Rate 71 69 Respiratory Rate Blood Pressure 155/81 H Pulse Oximetry 98 98 08/14/21 08:29 Temperature Pulse Rate 66 Respiratory Rate Blood Pressure 155/81 H Pulse Oximetry Oxygen Delivery Method Room Air Oxygen Flow Rate 0 Narrative Exam Narrative: NO ACUTE DISTRESS.? PATIENT IS ALERT ORIENTED X3.? MORBIDLY OBESE.? APPEARS OLDER THAN STATED AGE HEAD ATRAUMATIC NORMOCEPHALIC NECK : SUPPLE WITHOUT ADENOPATHY NO CAROTID BRUITS EYE:? EOMI, PERRLA, NORMAL CONJUNCTIVA; NO JAUNDICE CHEST:? REGULAR RATE.? ? NO RUBS.? PMI IS NON DISPLACED.? NO MURMURS; NORMAL S1- S2 PULMONARY:? DECREASED BS OVER THE BASES.? MILD BIBASILAR CRACKLES NOTED; NO INCREASED DULLNESS TO PERCUSSION.? NO WHEEZING.? NO RALES.? ABDOMEN:? SIGNIFICANTLY OBESE ABDOMEN BUT ? NONTENDER.? NONDISTENDED.? BOWEL SOUNDS ARE PRESENT IN ALL 4 QUADRANTS.? NO MASS. EXTREMITIES:? 1+ NONPITTING BILATERAL LOWER EXTREMITY EDEMA..? NO CYANOSIS CLUBBING NOTED. NEURO:? CRANIAL NERVES 2-12 GROSSLY INTACT. NO FOCAL NEUROLOGICAL DEFICIT NOTED. MSK:? NORMAL RANGE OF MOTION FOR AGE.? NO JOINT EFFUSION. SKIN:? NORMAL FOR ETHNICITY; NO ECCHYMOSIS.? NO LESION. ? GOOD? TURGOR.; NO RASHES :? NORMAL EXTERNAL GENITALIA. PSYCH :? APPROPRIATE MOOD AND AFFECT.? ALERT AWAKE ORIENTED X3 Objective Labs Result Diagrams: 08/14/21 04:30 08/14/21 04:30 Labs: Laboratory Results - last 24 hr 08/13/21 08/13/21 08/14/21 09:30 17:51 04:30 WBC 6.4 RBC 4.30 L Hgb 12.9 L Hct 37.7 L MCV 87.7 MCH 30.1 MCHC 34.3 RDW 13.8 Plt Count 182 Neut % (Auto) 61.4 Lymph % (Auto) 25.7 [place] % (Auto) 9.6 Eos % (Auto) 2.4 Baso % (Auto) 0.9 Neut # (Auto) 3900 Lymph # (Auto) 1600 [place] # (Auto) 600 Eos # (Auto) 200 Baso # (Auto) 100 Platelet Estimate Adequate on smear RBC Morphology Normal morphology APTT 61 H Sodium Potassium Chloride Carbon Dioxide BUN Creatinine Estimated GFR BUN/Creatinine Ratio Glucose Calcium Total Bilirubin AST ALT Alkaline Phosphatase Total Creatine Kinase Troponin I 0.025 Total Protein Albumin Globulin Albumin/Globulin Ratio 08/14/21 08/14/21 08/14/21 04:30 04:30 04:30 WBC RBC Hgb Hct MCV MCH MCHC RDW Plt Count Neut % (Auto) Lymph % (Auto) [place] % (Auto) Eos % (Auto) Baso % (Auto) Neut # (Auto) Lymph # (Auto) [place] # (Auto) Eos # (Auto) Baso # (Auto) Platelet Estimate RBC Morphology APTT Sodium 133 L Potassium 4.1 Chloride 102 Carbon Dioxide 30 BUN 28 H Creatinine 1.61 H Estimated GFR 46.0 L BUN/Creatinine Ratio 17.4 Glucose 250 H Calcium 9.5 Total Bilirubin 0.6 AST 49 ALT 31 Alkaline Phosphatase 91 Total Creatine Kinase 835 H Troponin I < 0.012 Total Protein 6.7 Albumin 3.8 Globulin 2.9 Albumin/Globulin Ratio 1.3 PFSH Medical History Acute kidney injury Arthritis BPH w urinary obs/LUTS Chronic GERD Depression Diabetes mellitus Erectile dysfunction Erectile dysfunction Gastritis Hyperlipidemia Hypertension Pancreatitis Social History household members: spouse Smoking Status: Former smoker alcohol intake: current Discharge Plan Discharge Plan Patient Disposition: Home Nursing Discharge Comment: PATIENT TO FOLLOW-UP WITH PRIMARY CARE PHYSICIAN WITHIN 1-2 WEEKS PRIMARY CARE PHYSICIAN TO 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 [employer] WITHIN 2-4 WEEKS Discharge orders & Medications Prescriptions: New nifedipine 30 mg tablet extended release 30 mg PO DAILY Qty: 30 2RF clopidogrel 75 mg Tablet 75 mg PO DAILY Qty: 30 2RF nitroglycerin [Nitrostat] 0.4 mg Tablet, Sublingual 0.4 mg sublingual [id number] PRN (Reason: Chest Pain) Qty: 12 0RF aspirin 81 mg Tablet,Chewable 162 mg PO DAILY Qty: 120 2RF furosemide [Lasix] 20 mg tablet 20 mg PO DAILY Qty: 30 2RF potassium chloride 10 mEq tablet,ER particles/crystals 10 meq PO DAILY Qty: 30 2RF Continued fluoxetine 40 mg capsule 40 mg PO DAILY 0RF atorvastatin 80 mg tablet 80 mg PO QPM 0RF Lantus Solostar U-100 Insulin 100 unit/mL (3 mL) insulin pen 50 unit SUBCUT QPM 0RF metformin 500 mg tablet 500 mg PO BID 0RF insulin aspart U-100 [Novolog Flexpen U-100 Insulin] 100 unit/mL (3 mL) insulin pen See Rx Instructions .ROUTE .COMPLEX PRN (Reason: Hyperglycemia) 0RF Rx Instructions: sliding scale based on carb intake pantoprazole 40 mg tablet,delayed release (DR/EC) 40 mg PO QAM 0RF metoclopramide HCl [Reglan] 10 mg tablet 10 mg PO Q6H PRN (Reason: nausea and vomiting) Qty: 10 0RF famotidine 40 mg tablet 40 mg PO DAILY 0RF metoprolol succinate 100 mg tablet extended release 24 hr 100 mg PO DAILY 0RF pioglitazone 45 mg tablet 45 mg PO DAILY 0RF tamsulosin 0.4 mg capsule 0.4 mg PO QPM 0RF Label Comments: TAKE ONE CAPSULE BY MOUTH EVERY EVENING TO IMPROVE VOIDING gabapentin 300 mg capsule 300 mg PO TID 0RF Label Comments: TAKE 1 CAPSULE BY MOUTH THREE TIMES DAILY FOR CHRONIC PAIN. TAKE WITH 100MG. acamprosate 333 mg tablet,delayed release (DR/EC) 333 mg PO DAILY 0RF fenofibrate nanocrystallized [Tricor] 145 mg tablet 145 mg PO QPM 0RF lisinopril 40 mg tablet 40 mg PO DAILY 0RF Discontinued chlorthalidone 25 mg tablet 25 mg PO DAILY 0RF amlodipine 10 mg tablet 10 mg PO DAILY 0RF Follow up/Referrals: Azul Dunbar DO [Primary Care Provider] - Diet/Activity/Treatments Diet: Carb-consistent/Diabetic, Low-fat, Low-sodium and Low-cholesterol Activity: TOLERATED Skin/Wound/Dressing Care Report to your healthcare provider any signs of infection, such as:: chills, fever, night sweats and increased pain Discharge Data Primary Care Provider: Azul Dunbar
== END 2021-08-14 10:29 | disposition home or self-care (01) | DRG 282 ==
LOC: ED 20:29 → ICU 22:56 → AC 08-14 15:25 → ICU 08-14 15:25
PROVIDERS: Emergency Medicine; Hospitalist; Admitting Provider Internal Medicine; Emergency Provider Emergency Medicine; PCP Family Medicine; Referring Provider Emergency Medicine; Visit Provider Internal Medicine
DX: I21.4 Non-ST elevation (NSTEMI) myocardial infarction (principal); R10.13 Epigastric pain; R11.10 Vomiting, unspecified; I12.9 Hypertensive chronic kidney disease with stage 1 through stage 4 chronic kidney disease, or unspecified chronic kidney disease; E66.01 Morbid (severe) obesity due to excess calories; E11.22 Type 2 diabetes mellitus with diabetic chronic kidney disease; F32.9 Major depressive disorder, single episode, unspecified; K21.9 Gastro-esophageal reflux disease without esophagitis; N18.30 Chronic kidney disease, stage 3 unspecified; Z87.891 Personal history of nicotine dependence; Z79.4 Long term (current) use of insulin; Z79.84 Long term (current) use of oral hypoglycemic drugs; Z68.39 Body mass index [BMI] 39.0-39.9, adult; Z20.822 Contact with and (suspected) exposure to COVID-19
CPT/HCPCS: 36415; 71045; 80048; 80053; 80320; 81003; 81015; 82550; 82553; 82962; 83036; 83690; 84484; 85025; 85610; 85730; 87635; 93005; 93306; 96361; 96374; 96375; 99284; 99291; C9803; A9270; C9113; J1644; J1815; J2405; Q9957

== ENCOUNTER → 2021-08-20 13:08 | Outpatient (CLI) | payer OTHER, SELFPAY ==
[2021-08-12 21:43] VITALS: BMI 39.5
--- NOTE | 2021-08-20 | DI.MRI.S_ITS ---
PROCEDURE: MR LUMBAR SPINE WO CON INDICATIONS: Low back pain, unspecified TECHNIQUE: Noncontrast sagittal T1 spin echo and T2 fast echo, sagittal STIR, axial T1 and T2 fast spin echo through the lumbar spine. In cases with scoliosis, additional coronal T2 fast spin echo may be performed. COMPARISON: [facility] [place], [place], XR LUMBAR SPINE WITH OBLIQUES PLUS FLEXION EXTENSION, 08/07/2021, 10:02. FINDINGS: Image quality: Excellent. Alignment and Curvature: 5 lumbar type vertebral bodies are present by plain film. There is mild grade 1 retrolisthesis of T12 on L1. Mild grade 1 anterolisthesis of L4 on L5. Bone Marrow: Marrow is of normal overall signal. No acute vertebral body compression fractures. Bilateral L4-L5 pars interarticularis defects are present. Moderate reactive signal within the endplates adjacent to the L4-L5 intervertebral disc. Mild reactive signal within the endplates adjacent to the T12-L1 and L1-L2 intervertebral discs. Spinal Cord: Conus medullaris terminates at the upper L2 level. Visualized cord demonstrates normal signal and size. Paraspinous Soft Tissues: No paravertebral masses. T12-L1: Moderate disc height loss and desiccation. Mild diffuse disc bulge with superimposed central disc extrusion which extends inferiorly within the anterior epidural space. Mild epidural lipomatosis. Mild facet and ligamentum flavum hypertrophy. Moderate canal stenosis. No foraminal stenosis. L1-L2: Mild disc height loss and desiccation. Mild diffuse disc bulge. Mild facet and ligamentum flavum hypertrophy. Mild canal stenosis. Mild bilateral foraminal stenosis. L2-L3: Mild facet and ligamentum flavum hypertrophy. Mild epidural lipomatosis. Mild canal stenosis. No foraminal stenosis. L3-L4: Mild facet and ligamentum flavum hypertrophy. No significant canal, or foraminal stenosis. L4-L5: Moderate disc height loss and desiccation. Moderate diffuse disc bulge. Mild facet and ligamentum flavum hypertrophy. Mild epidural lipomatosis. Moderate canal stenosis. Severe bilateral foraminal stenosis. Bilateral L4 nerve root compression. L5-S1: Mild bilateral facet hypertrophy. No significant canal, or foraminal stenosis. IMPRESSION: 1. Multilevel degenerative disc and facet disease, as well as ligamentum flavum hypertrophy and epidural lipomatosis. 2. Grade 1 isthmic spondylolisthesis at L4-L5. 3. Multilevel canal stenoses, worst at T12-L1 and L4-L5, where there are moderate canal stenosis. 4. Multilevel foraminal stenoses, worst at L4-L5 where there is intraforaminal nerve root compression. Recommend correlation with clinical symptoms to ascertain relevance of this finding. Dictated by: Zay Cid M.D. on 08/20/2021 at 15:51 Approved by: Zay Cid M.D. on 08/20/2021 at 15:54
== END ==
PROVIDERS: PCP Family Medicine; Referring Provider Physical Medicine & Rehabilitation Pain Medicine; Visit Provider Physical Medicine & Rehabilitation Pain Medicine
DX: M51.36 Other intervertebral disc degeneration, lumbar region (principal); M43.16 Spondylolisthesis, lumbar region; M48.05 Spinal stenosis, thoracolumbar region; M48.061 Spinal stenosis, lumbar region without neurogenic claudication; M54.50 Low back pain, unspecified
CPT/HCPCS: 72148

== ENCOUNTER → 2022-09-17 06:48 | Outpatient (CLI) | payer OTHER, SELFPAY ==
[2021-08-12 21:43] VITALS: BMI 39.5
--- NOTE | 2022-09-17 | DI.MRI.S_ITS ---
PROCEDURE: MR LUMBAR SPINE WO CON INDICATIONS: Low back pain; cirrhosis TECHNIQUE: Noncontrast sagittal T1 spin echo and T2 fast echo, sagittal STIR, and T2 fast spin echo through the lumbar spine. In cases with scoliosis, additional coronal T2 fast spin echo may be performed. COMPARISON: None. FINDINGS: Lumbar vertebral body heights maintained. Anterolisthesis of L4 on L5 measuring 8 mm. Otherwise normal alignment. No suspicious focal marrow signal abnormality. Discogenic marrow edema at the opposing L4-L5 endplates. Schmorl node with adjacent edema in the inferior L4 endplate. Normal position and appearance of the conus. Prevertebral and paraspinous soft tissues normal. T12-L1: Disc bulge and a superimposed extrusion in the right paracentral and subarticular zones flattens and indents the ventral thecal sac with displacement of the descending L1 nerve roots in the right subarticular zone. There is also mild flattening of the conus due to the disc material. No neural foraminal stenosis L1-L2: Diffuse disc bulge mildly flattens the ventral thecal sac without mass effect on the descending L2 nerve roots. No neural foraminal stenosis. Mild facet hypertrophy. L2-L3: Diffuse disc bulge flattens the ventral thecal sac without mass effect upon the traversing L3 nerve roots. No neural foraminal stenosis. Mild facet hypertrophy. L3-L4: Disc bulge produces trace flattening of the ventral thecal sac. No neural foraminal narrowing. [id number] facet hypertrophy. L4-L5: Pseudo bulge caused by the anterolisthesis of L4 on L5 combines with a true disc bulge and unroofing of the intervertebral disc to produce flattening of the ventral thecal sac and displacement of the bilateral descending L5 nerve roots in both subarticular zones. Neural foraminal distortion related to the listhesis combines with unroofing of the disc material to produce severe neural foraminal narrowing with flattening of the exiting bilateral L4 nerve roots. Moderate facet hypertrophy contributes to the neural foraminal narrowing as well. L5-S1: Diffuse disc bulge without mass effect on the descending S1 nerve roots. No neural foraminal stenosis IMPRESSION: Anterolisthesis of L4 on L5 which produces a pseudo bulge, combining with other degenerative changes at this level to produce severe bilateral subarticular zone and bilateral neural foraminal narrowing. Moderate spinal canal stenosis on the right at T12-L1 secondary to disc extrusion. Dictated by: Alden Arellano M.D. on 09/17/2022 at 10:35 Approved by: Alden Arellano M.D. on 09/17/2022 at 10:39
--- NOTE | 2022-09-17 | DI.US.S_ITS ---
PROCEDURE: US ABDOMEN LIMITED INDICATIONS: CIRRHOSIS - HEPATOCELLULAR CARCINOMA SCREENING TECHNIQUE: Real-time focused scanning was performed of the abdomen, with image documentation. COMPARISON: [facility], US, US ABDOMEN LIMITED, 02/17/2022, 7:07. [facility], US, US ABDOMEN COMPLETE, 07/30/2020, 16:21. FINDINGS: Liver length of 15.8 cm. Liver echotexture is mildly heterogeneous and hyperechoic. possible minimal capsular nodularity is also present. No suspicious liver lesion identified sonographically. Main portal vein is patent with antegrade flow. No gallstones, gallbladder wall thickening, or sonographic Scott sign. Probable 3 mm gallbladder polyp present. Per ACR incidental findings guidelines, imaging follow-up is not necessary for polyps of this size. No biliary ductal dilation demonstrated. Extrahepatic bile duct measures 6 mm. Pancreas is not well visualized due to bowel gas. Splenic length of 14.7 cm. IMPRESSION: No suspicious liver lesion identified sonographically. The liver is echogenic, a nonspecific finding commonly seen in the setting of steatosis. Dictated by: Frederick Alcantar M.D. on 09/17/2022 at 9:06 Approved by: Frederick Alcantar M.D. on 09/17/2022 at 9:10
== END ==
PROVIDERS: PCP Family Medicine; Referring Provider Internal Medicine; Visit Provider Internal Medicine
DX: Z12.89 Encounter for screening for malignant neoplasm of other sites (principal); K74.69 Other cirrhosis of liver; M43.16 Spondylolisthesis, lumbar region; M47.816 Spondylosis without myelopathy or radiculopathy, lumbar region; M48.05 Spinal stenosis, thoracolumbar region; M51.25 Other intervertebral disc displacement, thoracolumbar region
CPT/HCPCS: 72148; 76705

== ENCOUNTER → 2023-03-13 15:45 | Outpatient (CLI) | payer OTHER, SELFPAY ==
[2021-08-12 21:43] VITALS: BMI 39.5
--- NOTE | 2023-03-13 | DI.US.S_ITS ---
PROCEDURE: US ABDOMEN COMPLETE INDICATIONS: HCC SURVEILLANCE TECHNIQUE: Real-time scanning was performed of the abdominal and retroperitoneal organs, with image documentation. COMPARISON: [facility], CT, CT ABDOMEN PELVIS WO CON, 08/11/2021, 12:04. [facility], CT, CT ABDOMEN PELVIS WITH CONTRAST, 12/26/2019, 18:23. [facility], US, US ABDOMEN LIMITED, 09/17/2022, 7:38. FINDINGS: Liver: Liver is normal in size and homogeneous in echotexture. Gallbladder: A trace amount of sludge can be seen within the gallbladder. No gallstones are seen. The gallbladder wall is not thickened, measuring 3 mm or less. No specific pericholecystic fluid is seen. The sonographic Scott sign is negative. Biliary ducts: Intrahepatic bile ducts are non-dilated. Extrahepatic bile duct caliber measures 3 mm. Normal is 6-7 mm or less in diameter, or 10 mm or less post-cholecystectomy. Pancreas: Visualized portions of the pancreas are sonographically normal. Spleen: The spleen is mildly enlarged, measuring 13.4 cm. No focal splenic lesions are seen. Kidneys: The left kidney is not seen. The left renal fossa is unremarkable. A history of renal agenesis is given by the patient. The right kidney measures 13.8 cm in length. No hydronephrosis or solid lesion can be seen of the right kidney. No shadowing stones are seen. Aorta: Visualized aorta is normal in caliber at less than 3 cm. Iliacs: Proximal common iliac arteries are normal in caliber at less than 2.5 cm. IVC: Intrahepatic inferior vena cava is patent. Miscellaneous: No free abdominal fluid. IMPRESSION: Unremarkable liver, without a focal mass seen by ultrasound. Additional findings: Trace sludge within the gallbladder lumen. Mild splenomegaly Left renal agenesis Dictated by: Andrzej Trinidad M.D. on 03/13/2023 at 17:28 Approved by: Andrzej Trinidad M.D. on 03/13/2023 at 17:32
== END ==
PROVIDERS: PCP Family Medicine; Referring Provider Internal Medicine; Visit Provider Internal Medicine
DX: Z01.89 Encounter for other specified special examinations (principal); Q60.0 Renal agenesis, unilateral; R16.1 Splenomegaly, not elsewhere classified
CPT/HCPCS: 76700

== ENCOUNTER 2023-06-05 11:13 | Emergency (ER) | payer OTHER, SELFPAY ==
[2021-08-12 21:43] VITALS: BMI 39.5
[2023-06-05] VITALS (13 sets, daily range): BP systolic 132–170; BP diastolic 74–98; PULSE 57–71; RESP 16–25; TEMP 36.6; O2SAT 96–100; BMI 35.7
--- NOTE | 2023-06-05 11:32 | DI.RAD.S_ITS ---
PROCEDURE: XR CHEST 1V INDICATIONS: Shortness of breath TECHNIQUE: One view of the chest was acquired. COMPARISON: [facility], [place], XR CHEST 1V, 08/12/2021, 13:53. [facility], CR, XR CHEST 1V, 07/30/2020, 15:26. FINDINGS: Surgical changes and devices: None. Lungs and pleura: Lungs are clear. No pleural effusions or pneumothorax. Mediastinum: Mediastinal contours appear normal. Heart size is normal. Bones and chest wall: No suspicious bony lesions. Overlying soft tissues appear unremarkable. IMPRESSION: No acute cardiopulmonary process. Dictated by: Maximilian Fermin M.D. on 06/05/2023 at 12:01 Approved by: Maximilian Fermin M.D. on 06/05/2023 at 12:01
--- NOTE | 2023-06-05 11:39 | ED_ITS ---
HPI - SOB/Dyspnea General Chief Complaint: Shortness of Breath/Dyspnea Stated Complaint[facility] Time Seen by Provider: 06/05/23 11:39 Source: patient Mode of arrival: Ambulatory History of Present Illness HPI Narrative: This is a 48-year-old male presents emergency department due to an elevated D- dimer at the [place]. Related Data Home Medications Medication Instructions Recorded Confirmed atorvastatin 80 mg tablet 80 mg PO QPM 04/20/20 08/12/21 fluoxetine 40 mg capsule 40 mg PO DAILY 04/20/20 08/12/21 insulin glargine 100 unit/mL (3 50 unit SUBCUT QPM 04/20/20 08/12/21 mL) subcutaneous pen (Lantus Solostar U-100 Insulin) metformin 500 mg tablet 500 mg PO BID 04/20/20 08/12/21 lisinopril 40 mg tablet 40 mg PO DAILY 04/24/20 08/12/21 insulin aspart U-100 100 unit/mL See Rx Instructions .Route 08/03/20 08/12/21 (3 mL) subcutaneous pen (Novolog .COMPLEX PRN Hyperglycemia FlexPen U-100 Insulin aspart) pantoprazole 40 mg tablet,delayed 40 mg PO QAM 08/03/20 08/12/21 release acamprosate 333 mg tablet,delayed 333 mg PO DAILY 08/12/21 08/12/21 release famotidine 40 mg tablet 40 mg PO DAILY 08/12/21 08/12/21 fenofibrate nanocrystallized 145 145 mg PO QPM 08/12/21 08/12/21 mg tablet (Tricor) gabapentin 300 mg capsule 300 mg PO TID 08/12/21 08/12/21 metoprolol succinate 100 mg 100 mg PO DAILY 08/12/21 08/12/21 tablet,extended release 24 hr pioglitazone 45 mg tablet 45 mg PO DAILY 08/12/21 08/12/21 tamsulosin 0.4 mg capsule 0.4 mg PO QPM 08/12/21 08/12/21 Previous Rx's Medication Instructions Recorded metoclopramide HCl 10 mg tablet 10 mg PO Q6H PRN nausea and 08/11/21 (Reglan) vomiting #10 tabs aspirin 81 mg chewable tablet 162 mg (2 x 81 mg) PO DAILY #120 08/14/21 tabs clopidogrel 75 mg tablet 75 mg PO DAILY #30 tabs 08/14/21 furosemide 20 mg tablet (Lasix) 20 mg PO DAILY #30 tabs 08/14/21 nifedipine 30 mg tablet,extended 30 mg PO DAILY #30 tabs 08/14/21 release nitroglycerin 0.4 mg sublingual 0.4 mg sublingual [id number] PRN 08/14/21 tablet (Nitrostat) Chest Pain #12 tabs potassium chloride 10 mEq 10 meq PO DAILY #30 tabs 08/14/21 tablet,extended release(part/cryst) Allergies Allergy/AdvReac Type Severity Reaction Status Date / Time No Known Drug Allergies Allergy Verified 06/05/23 11:30 Review of Systems Review of Systems Narrative: GENERAL: Denies chills, fatigue, malaise, fever, sweats. HEENT: Denies sinus pain, ear pain, sore throat, difficulty swallowing, dizziness. RESPIRATORY: Denies dyspnea, cough, wheezing, hemoptysis, sputum. CARDIOVASCULAR: Denies chest pain, palpitations, orthopnea, edema, GASTROINTESTINAL: Denies nausea, vomiting, abdominal pain, diarrhea, constipation, melena. : Denies dysuria, frequency, incontinence, hematuria, urinary retention. MUSCULOSKELETAL: denies weakness, joint pain, or bony pain SKIN: Denies rash, skin lesions, or other NEUROLOGIC: Denies weakness, headache, numbness, change in speech, confusion, seizures, incoordination. PSYCHIATRIC: No concerning psychosocial issues. 12 point review of systems is negative except for those stated above Patient History Medical History Acute kidney injury Arthritis BPH w urinary obs/LUTS Chronic GERD Depression Diabetes mellitus Erectile dysfunction Erectile dysfunction Gastritis Hyperlipidemia Hypertension Pancreatitis Social History household members: spouse Smoking Status: Former smoker alcohol intake: current Smoking Status: Former smoker tobacco type: cigarettes alcohol intake frequency: 0-2 drinks per day Substance Use Type: marijuana Exam Narrative Exam Narrative: GENERAL: Well-developed patient, in mild distress. HEAD: Atraumatic. Normocephalic. EYES: Pupils equal round and reactive. Extraocular motions intact. No scleral icterus. No injection or drainage. ENT: Nose without bleeding, purulent drainage. Throat without erythema, tonsillar hypertrophy or exudate. Airway patent. NECK: Trachea midline. Non tender CARDIOVASCULAR: Regular rate and rhythm without murmurs, gallops, or rubs. RESPIRATORY: Clear to auscultation. Breath sounds equal bilaterally. No wheezes, rales, or rhonchi. GASTROINTESTINAL: Abdomen soft, non-tender, nondistended. EXTREMITIES: No edema or joint tenderness. BACK: Nontender without deformity or crepitance. No flank tenderness. NEURO: AOx3. SKIN: No rash or erythema of visible areas Initial Vital Signs Initial Vital Signs: Vital Signs Temperature 98 F 06/05/23 11:26 Pulse Rate 66 06/05/23 11:26 Respiratory Rate 18 06/05/23 11:26 Blood Pressure 160/86 H 06/05/23 11:26 Pulse Oximetry 99 06/05/23 11:26 Oxygen Delivery Method Room Air 06/05/23 11:26 Course Orders Ordered: ED Orders 06/05/23 11:32 XR chest 1V Stat Complete Blood Count AUTO DIFF Stat Comprehensive Metabolic Panel Stat Lactate (Lactic Acid) Stat NT-proBNP (BNP-Adult 18+) Stat Prothrombin Time INR Stat Troponin I Stat EKG-12 Lead Stat Measure peak expiratory flow ONCE RT Consult Eval and Treat NOW Vital Signs Vital signs: Vital Signs - 8 hr 06/05/23 11:26 Temperature 98 F Pulse Rate 66 Respiratory Rate 18 Blood Pressure 160/86 H Pulse Oximetry 99 Oxygen Delivery Method Room Air MDM - SOB/Dyspnea MDM Narrative Medical decision making narrative: MDM * differential diagnosis includes but not limited to [ ] * Prior records reviewed: Patient was seen here 2 years ago due to NSTEMI. Insulin-dependent diabetic, hypertension, dyslipidemia. History of [place] fundoplication for Smallwood's esophagitis. No allergies to medications, quit smoking tobacco 20 years ago. Primary care physicians Dr. Dunbar. History of pancreatitis. Patient came in for 4 days of epigastric pain as well as nausea and vomiting. Patient was given nitro which did not provide complete resolution of the symptoms. Patient was found to have an NSTEMI, cardiology was consulted and agreed with plan for nitro drip, heparin, aspirin and transfer to schedule that hospital. CT abdomen was unremarkable. EKG showed Sinus rhythm rate renal branch block. Rate 86 [place] 136 QRS of 132 QTC 478. Patient does have a right bundle branch block. Patient does not have any elevation that is new or depression but does have widened QRS and slight changes V2 V3 compared to EKG from 08/11/2021. * My lab interpretation: [ ] * My imgaing interpretation: [ ] * Clinical Decision Rules/Scores evaluated: [ ] * Independent discussions with: None ED Course: [ ] Shared Decision Making: Discussed plan with patient who is comfortable with the plan. Social Considerations: None Disposition: Discharged to home Discharge Plan Departure Prescriptions: No Action fluoxetine 40 mg capsule 40 mg PO DAILY atorvastatin 80 mg tablet 80 mg PO QPM Lantus Solostar U-100 Insulin 100 unit/mL (3 mL) insulin pen 50 unit SUBCUT QPM metformin 500 mg tablet 500 mg PO BID insulin aspart U-100 [Novolog FlexPen U-100 Insulin] 100 unit/mL (3 mL) insulin pen See Rx Instructions .ROUTE .COMPLEX PRN (Reason: Hyperglycemia) Rx Instructions: sliding scale based on carb intake pantoprazole 40 mg tablet,delayed release (DR/EC) 40 mg PO QAM metoclopramide HCl [Reglan] 10 mg tablet 10 mg PO Q6H PRN (Reason: nausea and vomiting) Qty: 10 0RF famotidine 40 mg tablet 40 mg PO DAILY metoprolol succinate 100 mg tablet extended release 24 hr 100 mg PO DAILY pioglitazone 45 mg tablet 45 mg PO DAILY tamsulosin 0.4 mg capsule 0.4 mg PO QPM Patient Comments: TAKE ONE CAPSULE BY MOUTH EVERY EVENING TO IMPROVE VOIDING gabapentin 300 mg capsule 300 mg PO TID Patient Comments: TAKE 1 CAPSULE BY MOUTH THREE TIMES DAILY FOR CHRONIC PAIN. TAKE WITH 100MG. acamprosate 333 mg tablet,delayed release (DR/EC) 333 mg PO DAILY fenofibrate nanocrystallized [Tricor] 145 mg tablet 145 mg PO QPM nifedipine 30 mg tablet extended release 30 mg PO DAILY Qty: 30 2RF clopidogrel 75 mg Tablet 75 mg PO DAILY Qty: 30 2RF nitroglycerin [Nitrostat] 0.4 mg Tablet, Sublingual 0.4 mg sublingual [id number] PRN (Reason: Chest Pain) Qty: 12 0RF aspirin 81 mg Tablet,Chewable 162 mg PO DAILY Qty: 120 2RF furosemide [Lasix] 20 mg tablet 20 mg PO DAILY Qty: 30 2RF potassium chloride 10 mEq tablet,ER particles/crystals 10 meq PO DAILY Qty: 30 2RF lisinopril 40 mg tablet 40 mg PO DAILY Referrals: Azul Dunbar DO [Primary Care Provider] -
[2023-06-05 11:51] LABS: Add Manual Diff / Slide Review NO; Basophils Absolute Auto 0 /uL (0-100); Basophils Percent Auto 0.7 % (0-2); Eosinophils Absolute Auto 100 /uL (0-450); Eosinophils Percent Auto 2.9 % (2-4); Hematocrit 39.3 % (41-53); Hemoglobin 13.4 g/dL (13.5-17.5); Lymphocytes Absolute Auto 900 /uL (1100-4500); Lymphocytes Percent Auto 18.7 % (25-40); Mean Corpuscular Hemoglobin 29.3 PG (26-34); Mean Corpuscular Volume 86.1 fL (80-100); Monocytes Absolute Auto 300 /uL (0-900); Monocytes Percent Auto 6.7 % (3-14); Neutrophils Absolute Auto 3500 /uL (1500-7000); Platelet Count 200 X10^3/uL (150-400); Red Blood Cell Count 4.56 X10^6/uL (4.5-5.9); Red Cell Distribution Width 14.1 % (11.6-14.8)
[2023-06-05 11:59] LABS: Prothrombin Time 11.2 SECONDS (10.1-12.7)
[2023-06-05 12:03] LABS: Lactate (Lactic Acid) 1.1 mmol/L (0.7-2.1)
[2023-06-05 12:05] LABS: Alanine Aminotransferase 21 IU/L (<50); Albumin 3.7 g/dL (3.5-5.0); Albumin Globulin Ratio 1.2 (1.0-2.8); Alkaline Phosphatase 151 U/L (38-126); Aspartate Aminotransferase 24 IU/L (17-59); BUN Creatinine Ratio 12.4 (6-22); Bilirubin Total 0.5 mg/dL (0.2-1.3); Blood Urea Nitrogen 31 mg/dL (9-20); Calcium 9.3 mg/dL (8.4-10.2); Carbon Dioxide 28 mmol/L (22-32); Chloride 98 mmol/L (98-107); Estimated Glomerular Filt Rate 31 mL/min (>60); Globulin 3.1 g/dL (1.7-4.1); Glucose 280 mg/dL (70-100); HEMOLYSIS 18 (0-50); Potassium 3.7 mmol/L (3.4-5.1); Sodium 133 mmol/L (137-145); Total Protein 6.8 g/dL (6.3-8.2)
[2023-06-05 12:16] LABS: NT-proBNP (BNP-Adult 18+) 382 pg/mL (<125); Troponin I < 0.012 ng/mL (0.01-0.034)
--- NOTE | 2023-06-05 12:52 | DI.US.S_ITS ---
PROCEDURE: US RENAL COMPLETE INDICATIONS: acute kidney injury TECHNIQUE: Real-time scanning was performed of the kidneys and bladder, with image documentation. COMPARISON: [facility], CT, CT ABDOMEN PELVIS WO CON, 08/11/2021, 12:04. [facility], US, US ABDOMEN COMPLETE, 03/13/2023, 16:18. FINDINGS: Kidneys: Right kidney measures 14.3 cm long. Right renal cortical thickness is 2.6 cm. The left kidney is not visualized, absent on prior imaging. No right hydronephrosis or evidence of right nephrolithiasis. Bladder: Pre-void bladder volume is 254 mL. Post-void residual is 50 mL. Pre-void images demonstrate no intraluminal masses or stones. On pre-void images, right ureteral jets are noted with color Doppler interrogation. (Of note, ureteral jets may not be detectable in up to 25% of cases due to insufficient differences in specific gravity between ureteral and bladder urine). Miscellaneous: No free pelvic fluid. IMPRESSION: 1. No right hydronephrosis or evidence of right nephrolithiasis. 2. Absent left kidney. 3. Postvoid residual urinary bladder volume of 50 cc. Dictated by: Frederick Alcantar M.D. on 06/05/2023 at 13:37 Approved by: Frederick Alcantar M.D. on 06/05/2023 at 13:42
[2023-06-05] MEDS: SODIUM CHLORIDE 0.9% 1,000 ML 1000 ML IV ×2 (13:21→15:13)
--- NOTE | 2023-06-05 13:34 | DI.CT.S_ITS ---
PROCEDURE: CT ANGIO CHEST PE PROTOCOL INDICATIONS: shortness of breath and elevated d dimer TECHNIQUE: After the administration of intravenous contrast, 2 mm thick sections acquired from the pulmonary apices to the posterior costophrenic angles. 3-dimensional maximum intensity projection (MIP) coronal and sagittal reformats were then acquired through the thorax. For radiation dose reduction, the following was used: automated exposure control, adjustment of mA and/or kV according to patient size. COMPARISON: [facility], CR, XR CHEST 1V, 06/05/2023, 11:34. FINDINGS: Pulmonary arteries: Pulmonary arteries are normal in size, and demonstrate no intraluminal filling defects to suggest central pulmonary embolism. Lungs and pleura: No consolidation, pleural effusion, or pneumothorax. Mediastinum: no pericardial effusion. Thoracic aorta is normal in caliber. Esophagus is normal in caliber. Multivessel coronary artery calcifications and/or stents. Bones and chest wall: Multilevel degenerative change of the visualized spine. No axillary or supraclavicular adenopathy. Abdomen: Left kidney not visualized. Possible gallbladder sludge and/or tiny stones. IMPRESSION: 1. No pulmonary embolism identified. 2. Possible gallbladder sludge and/or tiny stones. Dictated by: Frederick Alcantar M.D. on 06/05/2023 at 14:28 Approved by: Frederick Alcantar M.D. on 06/05/2023 at 14:41
--- NOTE | 2023-06-05 14:57 | ED_ITS ---
HPI - SOB/Dyspnea General Chief Complaint: Shortness of Breath/Dyspnea Stated Complaint[facility] Time Seen by Provider: 06/05/23 11:39 Source: patient Mode of arrival: Ambulatory History of Present Illness HPI Narrative: 48-year-old male former smoker with history of hyperlipidemia, coronary artery disease status post NSTEMI and chronic kidney disease (most recent GFR 31) presents at the request of his primary care team for evaluation of shortness of breath for the past month or so. He states that about 2 months ago he had a lumbar surgery. He states prior to this surgery he was relatively incapacitated and had been sedentary for quite some time. He had an outpatient lab find a critically elevated D-dimer and was sent here for evaluation. He states that his shortness of breath seems to come and go without any obvious pattern, he is even felt episodes of shortness of breath while in the shower without doing anything. He does admit that since his lumbar surgery went so well he has been more active than normal. He denies any lower extremity pain, swelling or redness Related Data Home Medications Medication Instructions Recorded Confirmed atorvastatin 80 mg tablet 80 mg PO QPM 04/20/20 08/12/21 fluoxetine 40 mg capsule 40 mg PO DAILY 04/20/20 08/12/21 insulin glargine 100 unit/mL (3 50 unit SUBCUT QPM 04/20/20 08/12/21 mL) subcutaneous pen (Lantus Solostar U-100 Insulin) metformin 500 mg tablet 500 mg PO BID 04/20/20 08/12/21 lisinopril 40 mg tablet 40 mg PO DAILY 04/24/20 08/12/21 insulin aspart U-100 100 unit/mL See Rx Instructions .Route 08/03/20 08/12/21 (3 mL) subcutaneous pen (Novolog .COMPLEX PRN Hyperglycemia FlexPen U-100 Insulin aspart) pantoprazole 40 mg tablet,delayed 40 mg PO QAM 08/03/20 08/12/21 release acamprosate 333 mg tablet,delayed 333 mg PO DAILY 08/12/21 08/12/21 release famotidine 40 mg tablet 40 mg PO DAILY 08/12/21 08/12/21 fenofibrate nanocrystallized 145 145 mg PO QPM 08/12/21 08/12/21 mg tablet (Tricor) gabapentin 300 mg capsule 300 mg PO TID 08/12/21 08/12/21 metoprolol succinate 100 mg 100 mg PO DAILY 08/12/21 08/12/21 tablet,extended release 24 hr pioglitazone 45 mg tablet 45 mg PO DAILY 08/12/21 08/12/21 tamsulosin 0.4 mg capsule 0.4 mg PO QPM 08/12/21 08/12/21 Previous Rx's Medication Instructions Recorded metoclopramide HCl 10 mg tablet 10 mg PO Q6H PRN nausea and 08/11/21 (Reglan) vomiting #10 tabs aspirin 81 mg chewable tablet 162 mg (2 x 81 mg) PO DAILY #120 08/14/21 tabs clopidogrel 75 mg tablet 75 mg PO DAILY #30 tabs 08/14/21 furosemide 20 mg tablet (Lasix) 20 mg PO DAILY #30 tabs 08/14/21 nifedipine 30 mg tablet,extended 30 mg PO DAILY #30 tabs 08/14/21 release nitroglycerin 0.4 mg sublingual 0.4 mg sublingual [id number] PRN 08/14/21 tablet (Nitrostat) Chest Pain #12 tabs potassium chloride 10 mEq 10 meq PO DAILY #30 tabs 08/14/21 tablet,extended release(part/cryst) Allergies Allergy/AdvReac Type Severity Reaction Status Date / Time No Known Drug Allergies Allergy Verified 06/05/23 11:30 Review of Systems Review of Systems Narrative: GENERAL: Denies chills, fatigue, malaise, fever, sweats. HEENT: Denies sinus pain, ear pain, sore throat, difficulty swallowing, dizziness. RESPIRATORY: See HPI CARDIOVASCULAR: Denies chest pain, palpitations, orthopnea, edema, GASTROINTESTINAL: Denies nausea, vomiting, abdominal pain, diarrhea, constipation, melena. : Denies dysuria, frequency, incontinence, hematuria, urinary retention. MUSCULOSKELETAL: denies weakness, joint pain, or bony pain SKIN: Denies rash, skin lesions, or other NEUROLOGIC: Denies weakness, headache, numbness, change in speech, confusion, seizures, incoordination. PSYCHIATRIC: No concerning psychosocial issues. 12 point review of systems is negative except for those stated above Patient History Medical History BPH w urinary obs/LUTS Erectile dysfunction Arthritis Hypertension Hyperlipidemia Chronic GERD Depression Pancreatitis Gastritis Acute kidney injury Diabetes mellitus Erectile dysfunction Social History household members: spouse Smoking Status: Former smoker alcohol intake: current Smoking Status: Former smoker tobacco type: cigarettes alcohol intake frequency: 0-2 drinks per day Substance Use Type: marijuana Exam Narrative Exam Narrative: GENERAL: [48] year old patient appears stated age. Well-developed patient, in mild distress. HEAD: Atraumatic. Normocephalic. EYES: Pupils equal round and reactive. Extraocular motions intact. No scleral icterus. No injection or drainage. ENT: Nose without bleeding, purulent drainage. Throat without erythema, tonsillar hypertrophy or exudate. Airway patent. NECK: Trachea midline. Non tender CARDIOVASCULAR: Regular rate and rhythm without murmurs, gallops, or rubs. RESPIRATORY: Clear to auscultation. Breath sounds equal bilaterally. No wheezes, rales, or rhonchi. GASTROINTESTINAL: Abdomen soft, non-tender, nondistended. EXTREMITIES: No edema or joint tenderness. BACK: Nontender without deformity or crepitance. No flank tenderness. NEURO: AOx3. SKIN: No rash or erythema of visible areas Initial Vital Signs Initial Vital Signs: Vital Signs Temperature 98 F 06/05/23 11:26 Pulse Rate 66 06/05/23 11:26 Respiratory Rate 18 06/05/23 11:26 Blood Pressure 160/86 H 06/05/23 11:26 Pulse Oximetry 99 06/05/23 11:26 Oxygen Delivery Method Room Air 06/05/23 11:26 Course Orders Ordered: Discontinued Medications Sodium Chloride (Normal Saline 0.9%) 1,000 mls @ 1,000 mls/hr IV BOLUS ONE Stop: 06/05/23 13:49 Last Infusion: 06/05/23 14:53 Dose: Infused Documented By: Admin: 06/05/23 13:21 Dose: 1,000 mls/hr Documented By: ELVIS Sodium Chloride (Normal Saline 0.9%) 1,000 mls @ 1,000 mls/hr IV BOLUS ONE Stop: 06/05/23 16:00 Last Infusion: 06/05/23 15:55 Dose: Infused Documented By: Admin: 06/05/23 15:13 Dose: 1,000 mls/hr Documented By: KEKE Vital Signs Vital signs: Vital Signs - 8 hr 06/05/23 11:26 06/05/23 12:03 06/05/23 12:03 Temperature 98 F Pulse Rate 66 64 Respiratory Rate 18 20 Blood Pressure 160/86 H 154/90 H Pulse Oximetry 99 99 Oxygen Delivery Method Room Air 06/05/23 12:30 06/05/23 12:30 06/05/23 13:00 Temperature Pulse Rate 62 62 Respiratory Rate 17 18 Blood Pressure 149/88 H Pulse Oximetry 97 96 Oxygen Delivery Method 06/05/23 13:00 06/05/23 13:35 06/05/23 13:37 Temperature Pulse Rate 70 59 L Respiratory Rate 25 H 16 Blood Pressure 132/80 Pulse Oximetry 97 99 Oxygen Delivery Method 06/05/23 13:37 06/05/23 14:00 06/05/23 14:00 Temperature Pulse Rate 62 Respiratory Rate 20 Blood Pressure 168/77 H 148/86 H Pulse Oximetry 98 Oxygen Delivery Method 06/05/23 14:25 06/05/23 14:25 06/05/23 14:30 Temperature Pulse Rate 63 71 Respiratory Rate 19 25 H Blood Pressure 170/84 H Pulse Oximetry 100 97 Oxygen Delivery Method 06/05/23 14:30 06/05/23 15:00 06/05/23 15:00 Temperature Pulse Rate 60 Respiratory Rate 17 Blood Pressure 150/74 H 144/82 H Pulse Oximetry 99 Oxygen Delivery Method MDM - SOB/Dyspnea Lab Data 06/05/23 11:41 06/05/23 15:56 Labs: Lab Results 06/05/23 06/05/23 06/05/23 Range/Units 11:41 15:08 15:56 WBC 5.0 (4.5-11.0) X10^3/uL RBC 4.56 (4.5-5.9) X10^6/uL Hgb 13.4 L (13.5-17.5) g/dL Hct 39.3 L (41-53) % MCV 86.1 (80-100) fL MCH 29.3 (26-34) PG MCHC 34.0 (30-36) % RDW 14.1 (11.6-14.8) % Plt Count 200 (150-400) X10^3/uL Neut % (Auto) 71.0 (50-75) % Lymph % (Auto) 18.7 L (25-40) % [place] % (Auto) 6.7 (3-14) % Eos % (Auto) 2.9 (2-4) % Baso % (Auto) 0.7 (0-2) % Neut # (Auto) 3500 (0036-9560) /uL Lymph # (Auto) 900 L (8779-5538) /uL [place] # (Auto) 300 (0-900) /uL Eos # (Auto) 100 (0-450) /uL Baso # (Auto) 0 (0-100) /uL PT 11.2 (10.1-12.7) SECONDS INR 1.0 (0.9-1.3) Sodium 133 L 136 L (137-145) mmol/L Potassium 3.7 3.7 (3.4-5.1) mmol/L Chloride 98 104 (98-107) mmol/L Carbon Dioxide 28 25 (22-32) mmol/L BUN 31 H 29 H (9-20) mg/dL Creatinine 2.50 H 2.14 H (0.66-1.25) mg/dL Estimated GFR 31 L 37 L (>60) mL/min BUN/Creatinine Ratio 12.4 13.6 (6-22) Glucose 280 H 145 H D (70-100) mg/dL Lactate 1.1 (0.7-2.1) mmol/L Calcium 9.3 8.7 (8.4-10.2) mg/dL Total Bilirubin 0.5 (0.2-1.3) mg/dL AST 24 (17-59) IU/L ALT 21 (<50) IU/L Alkaline Phosphatase 151 H (38-126) U/L Troponin I < 0.012 (0.01-0.034) ng/mL NT-Pro-B Natriuret Pep 382 H (<125) pg/mL Total Protein 6.8 (6.3-8.2) g/dL Albumin 3.7 (3.5-5.0) g/dL Globulin 3.1 (1.7-4.1) g/dL Albumin/Globulin Ratio 1.2 (1.0-2.8) Ur Random Sodium 95 H (30-90) mmol/L Urine Creatinine 47.2 mg/dL MDM Narrative Medical decision making narrative: [48] year old patient presents with a month of occasional shortness of breath Multiple etiologies for patient's symptoms considered including, but not limited to: [PE versus pneumonia versus worsening kidney failure versus other] Prior Charts reviewed in our EMR Primary Historian: patient Labs reviewed and interpreted by myself: No leukocytosis or left shift, no anemia, creatinine 2.5, GFR 31 (very close to his recent baseline) Imaging reviewed: CT angiogram demonstrates no pulmonary embolism, renal ultrasound shows no obstructive uropathy Patient's history and physical exam are reassuring, multiple diagnoses considered as noted above. Given elevated D-dimer and shortness of breath in the postoperative phase CT angiogram is ordered which thankfully shows no sign of pulmonary embolism, pneumonia or fluid overload. Renal ultrasound shows no obstructive uropathy, labs are otherwise at baseline. No evidence of pneumonia, patient nonlabored breathing with stable vital signs at baseline Findings and discharge diagnosis discussed with patient/family followed by verbalization of understanding Return precautions discussed with patient/family whom verbalize understanding of diagnosis and plan Discharge Plan Departure Patient Disposition: Home Clinical Impression: Chronic dyspnea Activity Restrictions/Additional Instructions: *You have been diagnosed with [shortness of breath ] *What to do: *Please continue to take your regular medications as directed. [ ] New medication prescriptions sent to your pharmacy: [ ] [ ] New medication written as a paper prescription [ ] No new medications given *Please follow up with your primary care provider in 2-3 days, call for an appointment. Let them know you were seen in the Emergency Department and that we ask that you be seen in follow up. We will electronically transmit a record of today's note if your PCP is in our system *If you do not have a primary care provider please contact the [facility] Resource line at [phone]. They will ask some questions about your medical history and help get you set up with a doctor in the community. *Return to Emergency Department if you should have any new, worsening or concerning symptoms, such as [fever greater than 101 F, shaking chills, worsening pain, persistent vomiting or other bothersome symptoms] Prescriptions: No Action fluoxetine 40 mg capsule 40 mg PO DAILY atorvastatin 80 mg tablet 80 mg PO QPM Lantus Solostar U-100 Insulin 100 unit/mL (3 mL) insulin pen 50 unit SUBCUT QPM metformin 500 mg tablet 500 mg PO BID insulin aspart U-100 [Novolog FlexPen U-100 Insulin] 100 unit/mL (3 mL) insulin pen See Rx Instructions .ROUTE .COMPLEX PRN (Reason: Hyperglycemia) Rx Instructions: sliding scale based on carb intake pantoprazole 40 mg tablet,delayed release (DR/EC) 40 mg PO QAM metoclopramide HCl [Reglan] 10 mg tablet 10 mg PO Q6H PRN (Reason: nausea and vomiting) Qty: 10 0RF famotidine 40 mg tablet 40 mg PO DAILY metoprolol succinate 100 mg tablet extended release 24 hr 100 mg PO DAILY pioglitazone 45 mg tablet 45 mg PO DAILY tamsulosin 0.4 mg capsule 0.4 mg PO QPM Patient Comments: TAKE ONE CAPSULE BY MOUTH EVERY EVENING TO IMPROVE VOIDING gabapentin 300 mg capsule 300 mg PO TID Patient Comments: TAKE 1 CAPSULE BY MOUTH THREE TIMES DAILY FOR CHRONIC PAIN. TAKE WITH 100MG. acamprosate 333 mg tablet,delayed release (DR/EC) 333 mg PO DAILY fenofibrate nanocrystallized [Tricor] 145 mg tablet 145 mg PO QPM nifedipine 30 mg tablet extended release 30 mg PO DAILY Qty: 30 2RF clopidogrel 75 mg Tablet 75 mg PO DAILY Qty: 30 2RF nitroglycerin [Nitrostat] 0.4 mg Tablet, Sublingual 0.4 mg sublingual [id number] PRN (Reason: Chest Pain) Qty: 12 0RF aspirin 81 mg Tablet,Chewable 162 mg PO DAILY Qty: 120 2RF furosemide [Lasix] 20 mg tablet 20 mg PO DAILY Qty: 30 2RF potassium chloride 10 mEq tablet,ER particles/crystals 10 meq PO DAILY Qty: 30 2RF lisinopril 40 mg tablet 40 mg PO DAILY Referrals: Azul Dunbar DO [Primary Care Provider] - Stand Alone Forms: Patient Portal/API
[2023-06-05 16:30] LABS: BUN Creatinine Ratio 13.6 (6-22); Blood Urea Nitrogen 29 mg/dL (9-20); Calcium 8.7 mg/dL (8.4-10.2); Carbon Dioxide 25 mmol/L (22-32); Chloride 104 mmol/L (98-107); Estimated Glomerular Filt Rate 37 mL/min (>60); Glucose 145 mg/dL (70-100); HEMOLYSIS 65 (0-50); Potassium 3.7 mmol/L (3.4-5.1); Sodium 136 mmol/L (137-145)
[2023-06-05 17:43] LABS: Creatinine Urine Random 47.2 mg/dL; Sodium Urine Random 95 mmol/L (30-90)
== END 2023-06-05 16:48 | disposition home or self-care (01) ==
PROVIDERS: Emergency Provider Emergency Medicine; PCP Family Medicine
DX: R06.09 Other forms of dyspnea (principal); Z79.899 Other long term (current) drug therapy
CPT/HCPCS: 36415; 71045; 71275; 76770; 80048; 80053; 82570; 83605; 83880; 84300; 84484; 85025; 85610; 93005; 96360; 96361; 99284

== ENCOUNTER → 2024-02-18 16:12 | Outpatient (CLI) | payer OTHER, SELFPAY ==
[2021-08-12 21:43] VITALS: BMI 39.5
--- NOTE | 2024-02-18 16:15 | DI.US.S_ITS ---
PROCEDURE: US RENAL COMPLETE INDICATIONS: CHRONIC KIDNEY DISEASE TECHNIQUE: Real-time scanning was performed of the kidneys and bladder, with image documentation. COMPARISON: [facility], , US RENAL COMPLETE, 06/05/2023, 13:10. FINDINGS: Kidneys: Left kidney is absent. Right kidney is mildly hypertrophied. Right kidney measures 12.8 cm long. Right renal cortical thickness is 2.4 cm. Renal cortical echotexture is normal. No hydronephrosis or nephrolithiasis. No suspicious solid mass lesions. Bladder: Pre-void bladder volume is 313 mL. Post-void residual is 36 mL. Pre-void images demonstrate no intraluminal masses or stones. On pre-void images, right ureteral jets are noted with color Doppler interrogation. (Of note, ureteral jets may not be detectable in up to 25% of cases due to insufficient differences in specific gravity between ureteral and bladder urine). Miscellaneous: No free pelvic fluid. IMPRESSION: 1. Absent left kidney. 2. Normal sonographic appearance of the right kidney and bladder. Approved by: Frederick Pedro M.D. on 02/19/2024 at 12:39
== END ==
PROVIDERS: PCP Internal Medicine; Referring Provider Internal Medicine; Visit Provider Internal Medicine
DX: Z01.89 Encounter for other specified special examinations (principal); Z90.5 Acquired absence of kidney
CPT/HCPCS: 76770

== ENCOUNTER 2024-06-09 11:40 | Emergency (ER) | payer OTHER, SELFPAY ==
[2021-08-12 21:43] VITALS: BMI 39.5
[2024-06-09] VITALS (10 sets, daily range): BP systolic 139–227; BP diastolic 71–123; PULSE 82–100; RESP 13–24; TEMP 37.1; O2SAT 94–100; BMI 35.7
--- NOTE | 2024-06-09 12:01 | DI.RAD.S_ITS ---
PROCEDURE: XR CHEST 1V INDICATIONS: chest pain TECHNIQUE: One view of the chest was acquired. COMPARISON: [facility], CR, XR CHEST 1V, 06/05/2023, 11:34. [facility], CR, XR CHEST 1V, 08/12/2021, 13:53. FINDINGS: Surgical changes and devices: None. Lungs and pleura: Lungs are clear. No pleural effusions or pneumothorax. Mediastinum: Mediastinal contours appear normal. Heart size is normal. Bones and chest wall: No suspicious bony lesions. Overlying soft tissues appear unremarkable. IMPRESSION: No acute cardiopulmonary abnormality is seen. Dictated by: Santiago Montero M.D. on 06/09/2024 at 12:57 Approved by: Santiago Montero M.D. on 06/09/2024 at 12:57
--- NOTE | 2024-06-09 12:12 | EKG_ITS ---
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
[2024-06-09 12:28] LABS: Add Manual Diff / Slide Review NO; Basophils Absolute Auto 0 /uL (0-100); Basophils Percent Auto 0.4 % (0-2); Eosinophils Absolute Auto 100 /uL (0-450); Eosinophils Percent Auto 0.7 % (2-4); Hematocrit 48.8 % (41-53); Hemoglobin 16.8 g/dL (13.5-17.5); Lymphocytes Absolute Auto 300 /uL (1100-4500); Lymphocytes Percent Auto 3.6 % (25-40); Mean Corpuscular HGB Conc 34.4 % (30-36); Mean Corpuscular Hemoglobin 30.7 PG (26-34); Mean Corpuscular Volume 89.1 fL (80-100); Monocytes Absolute Auto 700 /uL (0-900); Monocytes Percent Auto 7.5 % (3-14); Neutrophils Absolute Auto 8500 /uL (1500-7000); Neutrophils Percent Auto 87.8 % (50-75); Platelet Count 203 X10^3/uL (150-400); Red Blood Cell Count 5.47 X10^6/uL (4.5-5.9); Red Cell Distribution Width 14.2 % (11.6-14.8); White Blood Cell Count 9.7 X10^3/uL (4.5-11.0)
[2024-06-09 12:36] LABS: INR 0.9 (0.9-1.3); Prothrombin Time 10.3 SECONDS (9.4-12.5)
[2024-06-09 12:39] LABS: PTT Partial Thromboplastin Tim 39 SECONDS (25.1-36.5)
[2024-06-09 12:47] LABS: Alanine Aminotransferase 36 IU/L (<50); Albumin 4.4 g/dL (3.5-5.0); Albumin Globulin Ratio 1.4 (1.0-2.8); Alkaline Phosphatase 171 U/L (38-126); Aspartate Aminotransferase 32 IU/L (17-59); BUN Creatinine Ratio 10.1 (6-22); Blood Urea Nitrogen 21 mg/dL (9-20); Calcium 9.8 mg/dL (8.4-10.2); Carbon Dioxide 16 mmol/L (22-32); Chloride 107 mmol/L (98-107); Creatine Kinase 126 U/L (55-170); Estimated Glomerular Filt Rate 38 mL/min (>60); Globulin 3.2 g/dL (1.7-4.1); Glucose 246 mg/dL (70-100); HEMOLYSIS 16 (0-50); Lipase 26 U/L (23-300); Magnesium 1.8 mg/dL (1.6-2.3); Potassium 3.8 mmol/L (3.4-5.1); Sodium 140 mmol/L (137-145); Total Protein 7.6 g/dL (6.3-8.2)
[2024-06-09 12:59] LABS: NT-proBNP (BNP-Adult 18+) 914 pg/mL (<125); Troponin I < 0.012 ng/mL (0.01-0.034)
--- NOTE | 2024-06-09 15:44 | PC.NURSE ---
Pt states he thinks he has pancreatitis, thinks he has precipitious vomiting from excessive marijuana use. Pt has hx of pancreatitis, stopped drinking 12 mos ago.
--- NOTE | 2024-06-09 16:05 | ED_ITS ---
HPI - Chest Pain General Chief Complaint: Chest Pain Stated Complaint: extreme chest pain t-3 Time Seen by Provider: 06/09/24 15:21 Source: patient Mode of arrival: Wheelchair Limitations: no limitations History of Present Illness HPI narrative: 49-year-old gentleman with a history of diabetes, hyperlipidemia, hypertension, coronary artery disease presents complaining of chest pain for 2 days associated with nausea. His notes that he frequently has symptoms such as this after smoking marijuana. He has not complaining of palpitations, but complains of burning pain all along his esophagus, profound and violent vomiting, abdominal pain. No diarrhea, no fevers no cough Related Data Home Medications Medication Instructions Recorded Confirmed atorvastatin 80 mg tablet 80 mg PO QPM 04/20/20 08/12/21 fluoxetine 40 mg capsule 40 mg PO DAILY 04/20/20 08/12/21 insulin glargine 100 unit/mL (3 50 unit SUBCUT QPM 04/20/20 08/12/21 mL) subcutaneous pen (Lantus Solostar U-100 Insulin) metformin 500 mg tablet 500 mg PO BID 04/20/20 08/12/21 lisinopril 40 mg tablet 40 mg PO DAILY 04/24/20 08/12/21 insulin aspart U-100 100 unit/mL See Rx Instructions .Route 08/03/20 08/12/21 (3 mL) subcutaneous pen (Novolog .COMPLEX PRN Hyperglycemia FlexPen U-100 Insulin aspart) pantoprazole 40 mg tablet,delayed 40 mg PO QAM 08/03/20 08/12/21 release acamprosate 333 mg tablet,delayed 333 mg PO DAILY 08/12/21 08/12/21 release famotidine 40 mg tablet 40 mg PO DAILY 08/12/21 08/12/21 fenofibrate nanocrystallized 145 145 mg PO QPM 08/12/21 08/12/21 mg tablet (Tricor) gabapentin 300 mg capsule 300 mg PO TID 08/12/21 08/12/21 metoprolol succinate 100 mg 100 mg PO DAILY 08/12/21 08/12/21 tablet,extended release 24 hr pioglitazone 45 mg tablet 45 mg PO DAILY 08/12/21 08/12/21 tamsulosin 0.4 mg capsule 0.4 mg PO QPM 08/12/21 08/12/21 Previous Rx's Medication Instructions Recorded metoclopramide HCl 10 mg tablet 10 mg PO Q6H PRN nausea and 08/11/21 (Reglan) vomiting #10 tabs aspirin 81 mg chewable tablet 162 mg (2 x 81 mg) PO DAILY #120 08/14/21 tabs clopidogrel 75 mg tablet 75 mg PO DAILY #30 tabs 08/14/21 furosemide 20 mg tablet (Lasix) 20 mg PO DAILY #30 tabs 08/14/21 nifedipine 30 mg tablet,extended 30 mg PO DAILY #30 tabs 08/14/21 release nitroglycerin 0.4 mg sublingual 0.4 mg sublingual [id number] PRN 08/14/21 tablet (Nitrostat) Chest Pain #12 tabs potassium chloride 10 mEq 10 meq PO DAILY #30 tabs 08/14/21 tablet,extended release(part/cryst) promethazine 25 mg tablet 25 mg PO TID PRN nausea and 06/09/24 vomiting #14 tabs Allergies Allergy/AdvReac Type Severity Reaction Status Date / Time No Known Drug Allergies Allergy Verified 06/05/23 11:30 Review of Systems Review of Systems Narrative: Pertinent positive and negative findings as per HPI Patient History Medical History BPH w urinary obs/LUTS Erectile dysfunction Arthritis Hypertension Hyperlipidemia Chronic GERD Depression Pancreatitis Gastritis Acute kidney injury Diabetes mellitus Erectile dysfunction Social History household members: spouse Smoking Status: Former smoker alcohol intake: current Smoking Status: Former smoker tobacco type: cigarettes alcohol intake frequency: 0-2 drinks per day Substance Use Type: marijuana Exam Initial Vital Signs Initial Vital Signs: Vital Signs Temperature 98.7 F 06/09/24 11:57 Pulse Rate 87 06/09/24 11:57 Respiratory Rate 18 06/09/24 11:57 Blood Pressure 196/109 H 06/09/24 11:57 Pulse Oximetry 100 06/09/24 11:57 Oxygen Delivery Method Room Air 06/09/24 11:57 General: Chronically ill-appearing, actively vomiting with dry heaves, diaphoretic due to the energy exerted with his vomiting HEENT: Slightly injected sclera bilaterally, pupils are equal and reactive bilaterally Respiratory: Lungs are clear to auscultation, no wheezing no rales no rhonchi. Full and symmetrical air movement Cardiac: Mild tachycardia but no murmurs Abdomen: Soft, epigastric tenderness without rebound or guarding. No flank pain Skin: Diaphoretic, pale Neurologic: Grossly neurologically intact with no obvious asymmetries or abnormalities Extremities: No trauma, well perfused, no lower extremity edema Psych: Cooperative, Course Orders Ordered: ED Orders 06/09/24 12:01 XR chest 1V Stat EKG-12 Lead Stat 06/09/24 12:19 Complete Blood Count AUTO DIFF Stat Comprehensive Metabolic Panel Stat Lipase Stat Magnesium Stat NT-proBNP (BNP-Adult 18+) Stat PTT Partial Thromboplastin Wilfredo Stat Prothrombin Time INR Stat Troponin & CK Cardiac Panel Stat Ondansetron HCl (Ondansetron 4 Mg/2 Ml Inj) 4 mg IV NOW PRN PRN Reason: Nausea And Vomiting Last Admin: 06/09/24 17:07 Dose: 4 mg Documented By: GUILLERMO Ondansetron HCl (Ondansetron 4 Mg Odt) 4 mg SL NOW PRN PRN Reason: Nausea And Vomiting Discontinued Medications Aspirin (Aspirin 81 Mg Chew Tab) 324 mg PO NOW ONE Stop: 06/09/24 12:02 Last Admin: 06/09/24 16:04 Dose: Not Given Documented By: GUILLERMO(2) Al Hydrox/Mg Hydrox/Simethicone 20 ml/ Lidocaine HCl 15 ml 0 ml PO NOW ONE Stop: 06/09/24 16:25 Last Admin: 06/09/24 17:17 Dose: 35 ml Documented By: GUILLERMO Diphenhydramine HCl (Diphenhydramine 50 Mg/Ml Vial) 50 mg IV NOW ONE Stop: 06/09/24 16:25 Last Admin: 06/09/24 17:07 Dose: 50 mg Documented By: GUILLERMO Droperidol (Droperidol 5 Mg/2 Ml Vial) 1.25 mg IV NOW ONE Stop: 06/09/24 16:25 Last Admin: 06/09/24 17:07 Dose: 1.25 mg Documented By: GUILLERMO Sodium Chloride (Normal Saline 0.9%) 1,000 mls @ 1,000 mls/hr IV BOLUS ONE Stop: 06/09/24 17:23 Last Admin: 06/09/24 17:07 Dose: 1,000 mls/hr Documented By: GUILLERMO Vital Signs Vital signs: Vital Signs - 8 hr 06/09/24 11:57 06/09/24 15:26 06/09/24 15:27 Temperature 98.7 F Pulse Rate 87 89 88 Respiratory Rate 18 Blood Pressure 196/109 H Pulse Oximetry 100 99 100 Oxygen Delivery Method Room Air 06/09/24 15:27 06/09/24 15:30 06/09/24 15:30 Temperature Pulse Rate 95 H Respiratory Rate Blood Pressure 184/109 H 189/105 H Pulse Oximetry 100 Oxygen Delivery Method 06/09/24 17:15 06/09/24 17:17 06/09/24 17:17 Temperature Pulse Rate 97 H 100 H Respiratory Rate 24 Blood Pressure 227/123 H Pulse Oximetry 100 100 Oxygen Delivery Method 06/09/24 17:25 Temperature Pulse Rate 82 Respiratory Rate 22 Blood Pressure 170/84 H Pulse Oximetry 98 Oxygen Delivery Method Room Air MDM - Chest Pain Lab Data 06/09/24 12:19 06/09/24 12:19 Labs: Lab Results 06/09/24 Range/Units 12:19 WBC 9.7 (4.5-11.0) X10^3/uL RBC 5.47 (4.5-5.9) X10^6/uL Hgb 16.8 (13.5-17.5) g/dL Hct 48.8 (41-53) % MCV 89.1 (80-100) fL MCH 30.7 (26-34) PG MCHC 34.4 (30-36) % RDW 14.2 (11.6-14.8) % Plt Count 203 (150-400) X10^3/uL Neut % (Auto) 87.8 H (50-75) % Lymph % (Auto) 3.6 L (25-40) % Logan % (Auto) 7.5 (3-14) % Eos % (Auto) 0.7 L (2-4) % Baso % (Auto) 0.4 (0-2) % Neut # (Auto) 8500 H (0805-1810) /uL Lymph # (Auto) 300 L (5544-4811) /uL Logan # (Auto) 700 (0-900) /uL Eos # (Auto) 100 (0-450) /uL Baso # (Auto) 0 (0-100) /uL PT 10.3 (9.4-12.5) SECONDS INR 0.9 (0.9-1.3) APTT 39 H (25.1-36.5) SECONDS Sodium 140 (137-145) mmol/L Potassium 3.8 (3.4-5.1) mmol/L Chloride 107 (98-107) mmol/L Carbon Dioxide 16 L (22-32) mmol/L BUN 21 H (9-20) mg/dL Creatinine 2.07 H (0.66-1.25) mg/dL Estimated GFR 38 L (>60) mL/min BUN/Creatinine Ratio 10.1 (6-22) Glucose 246 H (70-100) mg/dL Calcium 9.8 (8.4-10.2) mg/dL Magnesium 1.8 (1.6-2.3) mg/dL Total Bilirubin 1.0 (0.2-1.3) mg/dL AST 32 (17-59) IU/L ALT 36 (<50) IU/L Alkaline Phosphatase 171 H (38-126) U/L Total Creatine Kinase 126 (55-170) U/L Troponin I < 0.012 (0.01-0.034) ng/mL NT-Pro-B Natriuret Pep 914 H (<125) pg/mL Total Protein 7.6 (6.3-8.2) g/dL Albumin 4.4 (3.5-5.0) g/dL Globulin 3.2 (1.7-4.1) g/dL Albumin/Globulin Ratio 1.4 (1.0-2.8) Lipase 26 (23-300) U/L Urine Dip Bedside Urine Glucose 1000 mg/dl Bedside Urine Bilirubin - Negative Bedside Urine Ketone ++ 40 Urine Specific [place] 1.015 Bedside Urine Occult Blood + Bedside Urine pH 6.0 Bedside Urine Protein +++ 300 Bedside Urine Urobilinogen - Negative Bedside Urine Nitrite - Negative Bedside Urine Leukocytes - Negative Esterase MDM Narrative Medical decision making narrative: CC: Vomiting for 48 hours Complicating co-morbidities: Similar episodes of emesis every time he smokes marijuana last marijuana use was 48 hours ago, diabetes, hypertension hyperlipidemia prior NSTEMI Data collected from: patient Medical records reviewed: Prior ER records reviewed Differential considered: Cannabinoid hyperemesis, acute coronary syndrome, viral syndrome, DKA Exam documented above, pertinent findings include: Patient appears miserable with severe work of vomiting. He is able to speak in full sentences. He does not have an acute abdomen Lab Test results independently reviewed as above. Pertinent findings: CBC is unremarkable Chemistries are at their baseline with creatinine at 2, blood sugar of 246 Anion gap is 17 ProBNP is slightly elevated at 914 Troponin is undetectable Independently reviewed EKG: Sinus rhythm with sinus arrhythmia. Rate of 87, no acute ischemic changes Imaging studies independently reviewed: Chest x-ray is unremarkable with no evidence of congestive heart failure Treatments: Fluids, Inapsine, Benadryl and GI cocktail Re-evaluations: Patient is feeling significantly better after a nap seen and Benadryl. The GI cocktail almost completely relieved all of the central chest pain and pressure. Discussion: 49-year-old gentleman with at minimum an adverse reaction to marijuana and probably also qualifies as cannabinoid hyperemesis syndrome. He does not smoke marijuana that regularly and as of today he is probably never going to smoke again. Retching and esophageal pain has been controlled with Inapsine, Benadryl and GI cocktail. Cardiac workup is unremarkable. Remainder of labs are close to their baseline. He is responded nicely to fluids. Findings reviewed with him this point there is no indication for additional imaging or hospitalization. He will be given a prescription for Phenergan to use as needed and my strong recommendations to avoid marijuana. Discharge Plan Departure Patient Disposition: Home Clinical Impression: Cannabinoid hyperemesis syndrome Instructions: DI for Cannabinoid Hyperemesis Syndrome Activity Restrictions/Additional Instructions: Thank you for coming in today I believe that marijuana is not the drug of choice for you. It is causing the severe vomiting. In the emergency department you were given a nap seen and Benadryl to help control the nausea and vomiting that we typically find with hyperemesis cannabinoid syndrome. The GI cocktail (the numbing medicine) was quite reassuring that the central burning pain that you are experiencing is from your esophagus and likely is due to force of all of the retching and vomiting There was no sign of infection, heart attack, diabetic ketoacidosis and no reason for hospitalization at this time. I am glad that you are feeling better I have given you a prescription for Phenergan which is a nausea medication that can be helpful. It typically does make you sleepy. That prescription was electronically transmitted to [facility], you can use it as needed. I would strongly recommend staying away from marijuana in all forms If you find that you are getting worse or develop any new symptoms, please feel free to return to the emergency department for further evaluation. Prescriptions: New promethazine 25 mg tablet 25 mg PO TID PRN (Reason: nausea and vomiting) Qty: 14 0RF No Action fluoxetine 40 mg capsule 40 mg PO DAILY atorvastatin 80 mg tablet 80 mg PO QPM Lantus Solostar U-100 Insulin 100 unit/mL (3 mL) insulin pen 50 unit SUBCUT QPM metformin 500 mg tablet 500 mg PO BID insulin aspart U-100 [Novolog FlexPen U-100 Insulin] 100 unit/mL (3 mL) insulin pen See Rx Instructions .ROUTE .COMPLEX PRN (Reason: Hyperglycemia) Rx Instructions: sliding scale based on carb intake pantoprazole 40 mg tablet,delayed release (DR/EC) 40 mg PO QAM metoclopramide HCl [Reglan] 10 mg tablet 10 mg PO Q6H PRN (Reason: nausea and vomiting) Qty: 10 0RF famotidine 40 mg tablet 40 mg PO DAILY metoprolol succinate 100 mg tablet extended release 24 hr 100 mg PO DAILY pioglitazone 45 mg tablet 45 mg PO DAILY tamsulosin 0.4 mg capsule 0.4 mg PO QPM Patient Comments: TAKE ONE CAPSULE BY MOUTH EVERY EVENING TO IMPROVE VOIDING gabapentin 300 mg capsule 300 mg PO TID Patient Comments: TAKE 1 CAPSULE BY MOUTH THREE TIMES DAILY FOR CHRONIC PAIN. TAKE WITH 100MG. acamprosate 333 mg tablet,delayed release (DR/EC) 333 mg PO DAILY fenofibrate nanocrystallized [Tricor] 145 mg tablet 145 mg PO QPM nifedipine 30 mg tablet extended release 30 mg PO DAILY Qty: 30 2RF clopidogrel 75 mg Tablet 75 mg PO DAILY Qty: 30 2RF nitroglycerin [Nitrostat] 0.4 mg Tablet, Sublingual 0.4 mg sublingual [id number] PRN (Reason: Chest Pain) Qty: 12 0RF aspirin 81 mg Tablet,Chewable 162 mg PO DAILY Qty: 120 2RF furosemide [Lasix] 20 mg tablet 20 mg PO DAILY Qty: 30 2RF potassium chloride 10 mEq tablet,ER particles/crystals 10 meq PO DAILY Qty: 30 2RF lisinopril 40 mg tablet 40 mg PO DAILY Referrals: Zhane Qureshi MD [Primary Care Provider] - Stand Alone Forms: Patient Portal/API
[2024-06-09] MEDS: SODIUM CHLORIDE 0.9% 1,000 ML 1000 ML IV (17:07)
[2024-06-09] MEDS: ONDANSETRON 4 MG/2 ML INJ IV (17:07)
[2024-06-09] MEDS: diphenhydrAMINE 50 MG/ML VIAL IV (17:07)
[2024-06-09] MEDS: DROPERIDOL 5 MG/2 ML VIAL 1.25 MG IV (17:07)
[2024-06-09] MEDS: MAG HYDROX/ALUMINUM/SIMETH SUS 20 ML, LIDOCAINE VISCOUS 2% 15 ML PO (17:17)
--- NOTE | 2024-06-09 17:24 | PC.NURSE ---
patient given warm heat pack instructed patient not to open up pack, tape applied to edges of seal/clip. patient verbalized understanding. Patient reports some relief from heat pack and recent medications.
[2024-06-09 18:23] LABS: Bacteria Urine None Seen; RBC Urine 0-1/HPF (0-5/HPF); Squamous Epithelial Cell Urine None Seen (0-5/HPF); Urine Volume 10mL (spun); WBC Urine None Seen (0-5/HPF)
[2024-06-09 18:24] LABS: Culture Indicated Urine Cult Not Indicated
== END 2024-06-09 18:20 | disposition home or self-care (01) ==
PROVIDERS: Emergency Provider Emergency Medicine; PCP Internal Medicine
DX: R11.2 Nausea with vomiting, unspecified (principal); I49.8 Other specified cardiac arrhythmias; I45.10 Unspecified right bundle-branch block; R07.9 Chest pain, unspecified; Z79.899 Other long term (current) drug therapy; F12.90 Cannabis use, unspecified, uncomplicated
CPT/HCPCS: 36415; 71045; 80053; 81003; 81015; 82550; 83690; 83735; 83880; 84484; 85025; 85610; 85730; 93005; 96361; 96374; 96375; 99284; J1200; J1790; J2405

== ENCOUNTER 2025-07-19 09:09 | Emergency (ER) | payer OTHER, SELFPAY ==
[2021-08-12 21:43] VITALS: BMI 39.5
[2025-07-19] VITALS (12 sets, daily range): BP systolic 154–184; BP diastolic 80–115; PULSE 89–106; RESP 16–20; TEMP 36.1; O2SAT 92–97; BMI 37.0
--- NOTE | 2025-07-19 09:24 | DI.CT.S_ITS ---
PROCEDURE: CT KIDNEY URETER BLADDER (KUB) INDICATIONS: hx renal failure, way worse function, but peeing frequently TECHNIQUE: CT of the abdomen and pelvis was obtained without intravenous contrast. Coronal and sagittal reformats were performed. For radiation dose reduction, the following was used: automated exposure control, adjustment of mA and/or kV according to patient size. COMPARISON: [facility], CT, CT ABDOMEN PELVIS WO CON, 08/11/2021, 12:04. [facility], CT, CT ABDOMEN PELVIS WITHOUT CONTRAST, 08/14/2024, 16:03. FINDINGS: Quality: Diagnostic. Lower Chest: Unremarkable. Abdomen: Liver: Nodular contour. No discrete lesion.. Gallbladder and bile ducts: Cholelithiasis. Pancreas: A trophic.. Spleen: Unremarkable. Adrenal Glands: Unremarkable. Kidneys and Ureters: Left kidney absent. No hydronephrosis on the right. The Stomach: Focal nodular wall thickening in the stomach/exophytic lesion measuring approximately 1.2 centimeter at the distal greater curvature, unchanged from 2020 presumed to be diverticulum or other chronic entity rather than tumor given lack of growth. Bowel: No abnormal dilation. No wall thickening. Normal appendix. Peritoneum: No free fluid. No free air. Pelvis: Reproductive: No left seminal vesicle. Bladder: Unremarkable. Other: Lymphatic: No adenopathy. Vasculature: No aortic aneurysm. Varicosities in the left upper quadrant. Abdominal wall: Intact. Bones: No aggressive osseous lesion. Postsurgical changes lower lumbar spine. IMPRESSION: No acute abnormality. Cholelithiasis Additional chronic findings noted above. Dictated by: Farooq Lal M.D. on 07/19/2025 at 9:51 Approved by: Farooq Lal M.D. on 07/19/2025 at 10:04
--- NOTE | 2025-07-19 09:25 | ED.NAVMDI ---
HPI - Nausea/Vomiting/Diarrhea General Chief complaint: Nausea/Vomiting/Diarrhea Stated complaint: was told to come to ER for Dialysis . Time Seen by Provider: 07/19/25 09:11 Source: patient, RN notes reviewed and old records reviewed Mode of arrival: Ambulatory Limitations: no limitations History of Present Illness HPI Narrative: 50-year-old male history of hypertension, dyslipidemia, insulin-dependent diabetes, known chronic kidney disease and single kidney following with Nephrology. Patient states that he had outpatient labs drawn yesterday received phone calls last night and this morning from the nephrology team that he needed to go to the emergency department because he had critical lab values. Patient did not receive any additional information about the lab values. He states he has had some nausea or vomiting which he describes as chronic. He has had some abdominal cramping which he also describes as chronic. He has had bowel movements states he has a little bit constipated but stooling. He states he has had urinary frequency with what he describes as a large amount of urine up to 10 times daily. He denies any back or flank pain. He denies any fevers or chills. He has noticed a little bit of a cough. States it is nonproductive. No shortness of breath or chest pain. He notes he has been itchy lately. Patient is supposed taking an aspirin daily but does not. He takes medications for hypertension, dyslipidemia, diabetes he notes he was recently started on torsemide 100 mg as well as an additional medication by his distribution manager. He states he has had prior back surgery, knee surgery and a [place] fundoplication. Denies any allergies to drugs. No tobacco, alcohol or recreational drugs reported. Patient's primary care is through the [facility]. Dr. Chong is his distribution manager. Related Data Home Medications ?Medication ?Instructions ?Recorded ?Confirmed atorvastatin 80 mg tablet 80 mg PO QPM 04/20/20 08/12/21 fluoxetine 40 mg capsule 40 mg PO DAILY 04/20/20 08/12/21 insulin glargine 100 unit/mL (3 50 unit SUBCUT QPM 04/20/20 08/12/21 mL) subcutaneous pen (Lantus Solostar U-100 Insulin) metformin 500 mg tablet 500 mg PO BID 04/20/20 08/12/21 lisinopril 40 mg tablet 40 mg PO DAILY 04/24/20 08/12/21 insulin aspart U-100 100 unit/mL See Rx Instructions .Route 08/03/20 08/12/21 (3 mL) subcutaneous pen (Novolog .COMPLEX PRN Hyperglycemia FlexPen U-100 Insulin aspart) pantoprazole 40 mg tablet,delayed 40 mg PO QAM 08/03/20 08/12/21 release acamprosate 333 mg tablet,delayed 333 mg PO DAILY 08/12/21 08/12/21 release famotidine 40 mg tablet 40 mg PO DAILY 08/12/21 08/12/21 fenofibrate nanocrystallized 145 145 mg PO QPM 08/12/21 08/12/21 mg tablet (Tricor) gabapentin 300 mg capsule 300 mg PO TID 08/12/21 08/12/21 metoprolol succinate 100 mg 100 mg PO DAILY 08/12/21 08/12/21 tablet,extended release 24 hr pioglitazone 45 mg tablet 45 mg PO DAILY 08/12/21 08/12/21 tamsulosin 0.4 mg capsule 0.4 mg PO QPM 08/12/21 08/12/21 Previous Rx's ?Medication ?Instructions ?Recorded metoclopramide HCl 10 mg tablet 10 mg PO Q6H PRN nausea and 08/11/21 (Reglan) vomiting #10 tabs aspirin 81 mg chewable tablet 162 mg (2 x 81 mg) PO DAILY #120 08/14/21 tabs clopidogrel 75 mg tablet 75 mg PO DAILY #30 tabs 08/14/21 furosemide 20 mg tablet (Lasix) 20 mg PO DAILY #30 tabs 08/14/21 nifedipine 30 mg tablet,extended 30 mg PO DAILY #30 tabs 08/14/21 release nitroglycerin 0.4 mg sublingual 0.4 mg sublingual [id number] PRN 08/14/21 tablet (Nitrostat) Chest Pain #12 tabs potassium chloride 10 mEq 10 meq PO DAILY #30 tabs 08/14/21 tablet,extended release(part/cryst) promethazine 25 mg tablet 25 mg PO TID PRN nausea and 06/09/24 vomiting #14 tabs Allergies Allergy/AdvReac Type Severity Reaction Status Date / Time No Known Drug Allergies Allergy Verified 07/22/25 11:07 Review of Systems Review of Systems ROS Unobtainable: All systems reviewed & are unremarkable except as noted in HPI and below Patient History Medical History BPH w urinary obs/LUTS Erectile dysfunction Arthritis Hypertension Hyperlipidemia Chronic GERD Depression Pancreatitis Gastritis Acute kidney injury Diabetes mellitus Erectile dysfunction Social History household members: spouse Smoking Status: Former smoker alcohol intake: current tobacco type: cigarettes alcohol intake frequency: 0-2 drinks per day Exam Narrative Exam Narrative: GENERAL: Alert and oriented x three, male in mild distress HEENT: Head normocephalic, atraumatic, EOMI, pupils reactive, face symmetric, moist mucous membranes NECK: Supple, full range of motion CARDIOVASCULAR: Regular rate and rhythm without murmurs, rubs or gallops. No edema bilateral lower extremities. RESPIRATORY: Breath sounds equal bilaterally, no wheezes rales or rhonchi. No tachypnea accessory muscle use ABDOMEN: Soft, nontender. Normoactive bowel sounds all 4 quadrants. No guarding or rebound, rigidity, no mass : No CVA tenderness EXTREMITIES: Normal range of motion, no clubbing or edema. Neurovascularly intact. Normal gait NEUROLOGICAL: Cranial nerves II through XII grossly intact. Moving all extremities SKIN: Warm, dry, no petechiae, no rashes or lesions. Initial Vital Signs Initial Vital Signs: Vital Signs Temperature 97 F L 07/19/25 09:15 Pulse Rate 106 H 07/19/25 09:15 Respiratory Rate 16 07/19/25 09:15 Blood Pressure 184/115 H 07/19/25 09:15 Pulse Oximetry 97 07/19/25 09:15 Oxygen Delivery Method Room Air 07/19/25 09:15 Course Orders Ordered: Discontinued Medications Sodium Chloride (Normal Saline 0.9%) 500 mls @ 1,000 mls/hr IV BOLUS ONE Stop: 07/19/25 09:53 Last Infusion: 07/19/25 11:03 Dose: Infused Documented By: Admin: 07/19/25 10:30 Dose: 1,000 mls/hr Documented By: WILLIAM Insulin Human Regular (Insulin Regular 100 Unit/Ml 3 Ml Vial) 5 unit IV NOW ONE Stop: 07/19/25 12:56 Last Admin: 07/19/25 13:20 Dose: 5 unit Documented By: ANTONIA Co-signed By: NANCY Vital Signs Vital signs: Vital Signs - 8 hr 07/19/25 09:15 07/19/25 11:43 Temperature 97 F L Pulse Rate 106 H 89 Respiratory Rate 16 16 Blood Pressure 184/115 H 165/84 H Pulse Oximetry 97 95 Oxygen Delivery Method Room Air MDM - Nausea/Vomiting/Diarrhea Lab Data 07/19/25 09:43 07/19/25 09:43 Labs: Lab Results 07/19/25 07/19/25 07/19/25 Range/Units 09:43 10:00 12:53 WBC 7.1 (4.5-11.0) X10^3/uL RBC 4.83 (4.5-5.9) X10^6/uL Hgb 14.6 (13.5-17.5) g/dL Hct 41.0 (41-53) % MCV 84.9 (80-100) fL MCH 30.2 (26-34) PG MCHC 35.6 (30-36) % RDW 13.3 (11.6-14.8) % Plt Count 199 (150-400) X10^3/uL Neut % (Auto) 73.3 (50-75) % Lymph % (Auto) 16.1 L (25-40) % Sequoyah % (Auto) 7.0 (3-14) % Eos % (Auto) 2.9 (2-4) % Baso % (Auto) 0.7 (0-2) % Neut # (Auto) 5200 (1276-7348) /uL Lymph # (Auto) 1100 (2656-7048) /uL Sequoyah # (Auto) 500 (0-900) /uL Eos # (Auto) 200 (0-450) /uL Baso # (Auto) 0 (0-100) /uL Sodium 129 L (137-145) mmol/L Potassium 3.5 (3.4-5.1) mmol/L Chloride 87 L (98-107) mmol/L Carbon Dioxide 29 (22-32) mmol/L BUN 87 H (9-20) mg/dL Creatinine 5.96 H (0.66-1.25) mg/dL Estimated GFR 11 L (>60) mL/min BUN/Creatinine Ratio 14.6 (6-22) Glucose 398 H (70-99) mg/dL POC Whole Bld Glucose 458 H* (70-99) mg/dL Calcium 9.3 (8.4-10.2) mg/dL Total Bilirubin 0.8 (0.2-1.3) mg/dL AST 34 (17-59) IU/L ALT 28 (<50) IU/L Alkaline Phosphatase 159 H (38-126) U/L Total Protein 7.7 (6.3-8.2) g/dL Albumin 4.3 (3.5-5.0) g/dL Globulin 3.4 (1.7-4.1) g/dL Albumin/Globulin Ratio 1.3 (1.0-2.8) Lipase 122 (23-300) U/L Urine Color Yellow Urine Appearance Clear Urine pH 6.0 (4.5-8.0) Ur Specific Patriot 1.020 (1.000-1.035) Urine Protein 3+ H (Negative) Urine Glucose (UA) 3+ H (Negative) g/dL Urine Ketones Negative (NEGATIVE) Urine Occult Blood 2+ H (Negative) Urine Nitrate Negative (Negative) Urine Bilirubin Negative (NEGATIVE) Urine Urobilinogen 0.2 (0.2) E.U./dL Ur Leukocyte Esterase Negative (NEGATIVE) Urine RBC 1-5/hpf (0-5/HPF) Urine WBC None seen (0-5/HPF) Ur Squamous Epith Cells 0-1 /hpf (0-5/HPF) Urine Bacteria None seen (None) Ur Culture Indicated? Cult not indicated Vol Urine Centrifuged 10ml (spun) Ketones 0.12 (<0.27) mmol/L 11/26/25 Range/Units 14:52 WBC (4.5-11.0) X10^3/uL RBC (4.5-5.9) X10^6/uL Hgb (13.5-17.5) g/dL Hct (41-53) % MCV (80-100) fL MCH (26-34) PG MCHC (30-36) % RDW (11.6-14.8) % Plt Count (150-400) X10^3/uL Neut % (Auto) (50-75) % Lymph % (Auto) (25-40) % Sequoyah % (Auto) (3-14) % Eos % (Auto) (2-4) % Baso % (Auto) (0-2) % Neut # (Auto) (2383-6692) /uL Lymph # (Auto) (9848-9380) /uL Sequoyah # (Auto) (0-900) /uL Eos # (Auto) (0-450) /uL Baso # (Auto) (0-100) /uL Sodium (137-145) mmol/L Potassium (3.4-5.1) mmol/L Chloride (98-107) mmol/L Carbon Dioxide (22-32) mmol/L BUN (9-20) mg/dL Creatinine (0.66-1.25) mg/dL Estimated GFR (>60) mL/min BUN/Creatinine Ratio (6-22) Glucose (70-99) mg/dL POC Whole Bld Glucose 384 H (70-99) mg/dL Calcium (8.4-10.2) mg/dL Total Bilirubin (0.2-1.3) mg/dL AST (17-59) IU/L ALT (<50) IU/L Alkaline Phosphatase (38-126) U/L Total Protein (6.3-8.2) g/dL Albumin (3.5-5.0) g/dL Globulin (1.7-4.1) g/dL Albumin/Globulin Ratio (1.0-2.8) Lipase (23-300) U/L Urine Color Urine Appearance Urine pH (4.5-8.0) Ur Specific Patriot (1.000-1.035) Urine Protein (Negative) Urine Glucose (UA) (Negative) g/dL Urine Ketones (NEGATIVE) Urine Occult Blood (Negative) Urine Nitrate (Negative) Urine Bilirubin (NEGATIVE) Urine Urobilinogen (0.2) E.U./dL Ur Leukocyte Esterase (NEGATIVE) Urine RBC (0-5/HPF) Urine WBC (0-5/HPF) Ur Squamous Epith Cells (0-5/HPF) Urine Bacteria (None) Ur Culture Indicated? Vol Urine Centrifuged Ketones (<0.27) mmol/L [facility] Narrative Medical decision making narrative: Labs show normal white count, hemoglobin and platelets, chemistries shows sodium 129 with a glucose is 398, potassium 3.5 with a chloride 87 CO2 of 29 BUN 87 creatinine of 5.96. Alk-phos is 159 LFTs are otherwise . Urinalysis shows 3+ protein 3+ glucose 2+ occult blood. 1-5 white and red cells. One squamous. Normal CT KUB shows no acute abnormality cholelithiasis. Focal nodular wall thickening stomach exophytic lesion measuring 1.2 cm unchanged from 2020 presumed to be diverticulum or other chronic entity rather than tumor given lack of growth. Patient received 500 mL fluids Insulin [address] Pandey, nephrology covering for Dr. Marsh we reviewed his creatinine last night was 6, notes that he recently started torsemide we will have him hold this, we would recommend getting his blood sugars under better control DC any Jardiance Berlin or arbs have him call the office does not need emergent dialysis at this time but that has very close to needing it. Notes patient has been trying to get to [place] for a move prior to setting up dialysis. Patient's glucose was in the 390s, on repeat was in the 400 range patient notes he did not take his Lantus last night he did have some short-acting insulin but has not had any additional. Was given 5 units here in the department. On rechecked is trending back down. After discussion we will have patient return home restart his Lantus which he has available at home. Discharge Plan Departure Patient Disposition: Home Clinical Impression: Hyperglycemia, Acute renal failure superimposed on chronic kidney disease Activity Restrictions/Additional Instructions: Follow up with your nephrology team. Call today to set up a follow up appointment. I spoke with the distribution manager that left you a voicemail. They do recommend that you been seen. You need to have your labs rechecked in the next 48 hours to make sure that they are improving. If you are unable to follow up with your nephrology team because of the holiday you can return to the emergency department. You also need to take your medications including your Lantus and other insulin regularly. You can continue your carvedilol as prescribed. Stop your torsemide and metolazone, that were recently prescribed. These may worsen your renal function. I would also ask that you hold your losartan until you have your labs rechecked. Please return if you have any new or worsening symptoms, lightheadedness, new chest pain or shortness of breath, persistently elevated glucose, new swelling of your extremities, persistent vomiting or other new or concerning changes. Prescriptions: No Action fluoxetine 40 mg capsule 40 mg PO DAILY atorvastatin 80 mg tablet 80 mg PO QPM Lantus Solostar U-100 Insulin 100 unit/mL (3 mL) insulin pen 50 unit SUBCUT QPM metformin 500 mg tablet 500 mg PO BID insulin aspart U-100 [Novolog FlexPen U-100 Insulin] 100 unit/mL (3 mL) insulin pen See Rx Instructions .ROUTE .COMPLEX PRN (Reason: Hyperglycemia) Rx Instructions: sliding scale based on carb intake pantoprazole 40 mg tablet,delayed release (DR/EC) 40 mg PO QAM metoclopramide HCl [Reglan] 10 mg tablet 10 mg PO Q6H PRN (Reason: nausea and vomiting) Qty: 10 0RF promethazine 25 mg tablet 25 mg PO TID PRN (Reason: nausea and vomiting) Qty: 14 0RF famotidine 40 mg tablet 40 mg PO DAILY metoprolol succinate 100 mg tablet extended release 24 hr 100 mg PO DAILY pioglitazone 45 mg tablet 45 mg PO DAILY tamsulosin 0.4 mg capsule 0.4 mg PO QPM Patient Comments: TAKE ONE CAPSULE BY MOUTH EVERY EVENING TO IMPROVE VOIDING gabapentin 300 mg capsule 300 mg PO TID Patient Comments: TAKE 1 CAPSULE BY MOUTH THREE TIMES DAILY FOR CHRONIC PAIN. TAKE WITH 100MG. acamprosate 333 mg tablet,delayed release (DR/EC) 333 mg PO DAILY fenofibrate nanocrystallized [Tricor] 145 mg tablet 145 mg PO QPM nifedipine 30 mg tablet extended release 30 mg PO DAILY Qty: 30 2RF clopidogrel 75 mg Tablet 75 mg PO DAILY Qty: 30 2RF nitroglycerin [Nitrostat] 0.4 mg Tablet, Sublingual 0.4 mg sublingual [id number] PRN (Reason: Chest Pain) Qty: 12 0RF aspirin 81 mg Tablet,Chewable 162 mg PO DAILY Qty: 120 2RF furosemide [Lasix] 20 mg tablet 20 mg PO DAILY Qty: 30 2RF potassium chloride 10 mEq tablet,ER particles/crystals 10 meq PO DAILY Qty: 30 2RF lisinopril 40 mg tablet 40 mg PO DAILY Referrals: Fernando Chong PA-C [Non-Staff, Nephrology] Zhane Qureshi MD [Primary Care Provider, Internal Medicine] Stand Alone Forms: Patient Portal/API, Work Release Note
[2025-07-19 10:03] LABS: Add Manual Diff / Slide Review NO; Hematocrit 41.0 % (41-53); Hemoglobin 14.6 g/dL (13.5-17.5); Lymphocytes Absolute Auto 1100 /uL (1100-4500); Mean Corpuscular HGB Conc 35.6 % (30-36); Mean Corpuscular Hemoglobin 30.2 PG (26-34); Mean Corpuscular Volume 84.9 fL (80-100); Platelet Count 199 X10^3/uL (150-400)
[2025-07-19 10:13] LABS: Alanine Aminotransferase 28 IU/L (<50); Albumin 4.3 g/dL (3.5-5.0); Albumin Globulin Ratio 1.3 (1.0-2.8); Alkaline Phosphatase 159 U/L (38-126); Blood Urea Nitrogen 87 mg/dL (9-20); Calcium 9.3 mg/dL (8.4-10.2); Carbon Dioxide 29 mmol/L (22-32); Chloride 87 mmol/L (98-107); Estimated Glomerular Filt Rate 11 mL/min (>60); Globulin 3.4 g/dL (1.7-4.1); Glucose 398 mg/dL (70-99); Lipase 122 U/L (23-300); Potassium 3.5 mmol/L (3.4-5.1); Sodium 129 mmol/L (137-145); Total Protein 7.7 g/dL (6.3-8.2)
[2025-07-19 10:26] LABS: Ketones (Beta-Hydroxybutyrate) 0.12 mmol/L (<0.27)
[2025-07-19 10:27] LABS: HEMOLYSIS 99 (0-50)
[2025-07-19] MEDS: SODIUM CHLORIDE 0.9% 500 ML 1000 ML IV (10:30)
[2025-07-19 10:56] LABS: Appearance Urine UA CLEAR; Bilirubin Urine UA NEGATIVE (NEGATIVE); Color Urine UA YELLOW; Glucose Urine UA 3+ g/dL (Negative); Ketones Urine UA NEGATIVE (NEGATIVE); Leukocyte Esterase Urine UA NEGATIVE (NEGATIVE); Nitrite Urine UA NEGATIVE (Negative); Occult Blood Urine UA 2+ (Negative); Protein Urine UA 3+ (Negative); Specific Gravity Urine UA 1.020 (1.000-1.035); Urobilinogen Urine UA 0.2 E.U./dL (0.2); pH Urine UA 6.0 (4.5-8.0)
[2025-07-19 10:59] LABS: Culture Indicated Urine Cult Not Indicated
[2025-07-19] MEDS: INSULIN REGULAR 100 UNIT/ML 3 ML VIAL IV (13:20)
== END 2025-07-19 15:26 | disposition home or self-care (01) ==
PROVIDERS: Emergency Provider Emergency Medicine; PCP Internal Medicine
DX: E11.65 Type 2 diabetes mellitus with hyperglycemia (principal); N17.9 Acute kidney failure, unspecified; E11.22 Type 2 diabetes mellitus with diabetic chronic kidney disease; N18.9 Chronic kidney disease, unspecified; Z90.5 Acquired absence of kidney; Z79.4 Long term (current) use of insulin
CPT/HCPCS: 36415; 74176; 80053; 81001; 82009; 82962; 83690; 85025; 96361; 96374; 99284; J7040

== ENCOUNTER 2025-07-22 10:27 | Emergency (ER) | payer OTHER, SELFPAY ==
[2021-08-12 21:43] VITALS: BMI 39.5
[2025-07-22 11:07] VITALS: BP 125/66; PULSE 76; RESP 18; TEMP 36.2; O2SAT 99; BMI 38.0
--- NOTE | 2025-07-22 11:28 | ED.RECABL ---
HPI - Recheck/Abnormal Lab/Rx General Chief Complaint: Recheck/Abnormal Lab/Rx Stated Complaint: Labs Time Seen by Provider: 07/22/25 10:35 Source: patient Mode of arrival: Ambulatory History of Present Illness HPI narrative: 50-year-old gentleman history hypertension dyslipidemia insulin dependent diabetes known chronic kidney disease and single kidney for which he follows up with nephrology was told to follow up with Nephrology and have repeat labs was unable to get in with nephrology and came back to the ER to be re-evaluated. He is still making lots of urine at this time still taking NovoLog and Lantus for his diabetes. Other than what is stated 14 point review of system is negative. Related Data Home Medications ?Medication ?Instructions ?Recorded ?Confirmed atorvastatin 80 mg tablet 80 mg PO QPM 04/20/20 08/12/21 fluoxetine 40 mg capsule 40 mg PO DAILY 04/20/20 08/12/21 insulin glargine 100 unit/mL (3 50 unit SUBCUT QPM 04/20/20 08/12/21 mL) subcutaneous pen (Lantus Solostar U-100 Insulin) metformin 500 mg tablet 500 mg PO BID 04/20/20 08/12/21 lisinopril 40 mg tablet 40 mg PO DAILY 04/24/20 08/12/21 insulin aspart U-100 100 unit/mL See Rx Instructions .Route 08/03/20 08/12/21 (3 mL) subcutaneous pen (Novolog .COMPLEX PRN Hyperglycemia FlexPen U-100 Insulin aspart) pantoprazole 40 mg tablet,delayed 40 mg PO QAM 08/03/20 08/12/21 release acamprosate 333 mg tablet,delayed 333 mg PO DAILY 08/12/21 08/12/21 release famotidine 40 mg tablet 40 mg PO DAILY 08/12/21 08/12/21 fenofibrate nanocrystallized 145 145 mg PO QPM 08/12/21 08/12/21 mg tablet (Tricor) gabapentin 300 mg capsule 300 mg PO TID 08/12/21 08/12/21 metoprolol succinate 100 mg 100 mg PO DAILY 08/12/21 08/12/21 tablet,extended release 24 hr pioglitazone 45 mg tablet 45 mg PO DAILY 08/12/21 08/12/21 tamsulosin 0.4 mg capsule 0.4 mg PO QPM 08/12/21 08/12/21 Previous Rx's ?Medication ?Instructions ?Recorded metoclopramide HCl 10 mg tablet 10 mg PO Q6H PRN nausea and 08/11/21 (Reglan) vomiting #10 tabs aspirin 81 mg chewable tablet 162 mg (2 x 81 mg) PO DAILY #120 08/14/21 tabs clopidogrel 75 mg tablet 75 mg PO DAILY #30 tabs 08/14/21 furosemide 20 mg tablet (Lasix) 20 mg PO DAILY #30 tabs 08/14/21 nifedipine 30 mg tablet,extended 30 mg PO DAILY #30 tabs 08/14/21 release nitroglycerin 0.4 mg sublingual 0.4 mg sublingual [id number] PRN 08/14/21 tablet (Nitrostat) Chest Pain #12 tabs potassium chloride 10 mEq 10 meq PO DAILY #30 tabs 08/14/21 tablet,extended release(part/cryst) promethazine 25 mg tablet 25 mg PO TID PRN nausea and 06/09/24 vomiting #14 tabs Allergies Allergy/AdvReac Type Severity Reaction Status Date / Time No Known Drug Allergies Allergy Verified 07/22/25 11:07 Review of Systems Review of Systems ROS Unobtainable: All systems reviewed & are unremarkable except as noted in HPI and below Patient History Medical History BPH w urinary obs/LUTS Erectile dysfunction Arthritis Hypertension Hyperlipidemia Chronic GERD Depression Pancreatitis Gastritis Acute kidney injury Diabetes mellitus Erectile dysfunction Social History household members: spouse alcohol intake: current Smoking Status: Former smoker tobacco type: cigarettes alcohol intake frequency: 0-2 drinks per day Exam Narrative Exam Narrative: GENERAL: [50] year old patient appears stated age. Well-developed patient, in mild distress. HEAD: Atraumatic. Normocephalic. EYES: Pupils equal round and reactive. Extraocular motions intact. No scleral icterus. No injection or drainage. ENT: Nose without bleeding, purulent drainage. Throat without erythema, tonsillar hypertrophy or exudate. Airway patent. NECK: Trachea midline. Non tender CARDIOVASCULAR: Regular rate and rhythm without murmurs, gallops, or rubs. RESPIRATORY: Clear to auscultation. Breath sounds equal bilaterally. No wheezes, rales, or rhonchi. GASTROINTESTINAL: Abdomen soft, non-tender, nondistended. EXTREMITIES: No edema or joint tenderness. BACK: Nontender without deformity or crepitance. No flank tenderness. NEURO: AOx3. SKIN: No rash or erythema of visible areas Initial Vital Signs Initial Vital Signs: Vital Signs Temperature 97.2 F L 07/22/25 11:07 Pulse Rate 76 07/22/25 11:07 Respiratory Rate 18 07/22/25 11:07 Blood Pressure 125/66 07/22/25 11:07 Pulse Oximetry 99 07/22/25 11:07 Oxygen Delivery Method Room Air 07/22/25 11:07 Course Vital Signs Vital signs: Vital Signs - 8 hr 07/22/25 11:07 Temperature 97.2 F L Pulse Rate 76 Respiratory Rate 18 Blood Pressure 125/66 Pulse Oximetry 99 Oxygen Delivery Method Room Air MDM - Recheck/Abnormal Lab/Rx MDM Narrative Medical decision making narrative: All lab work, vital Signs, nurse triage note, medication list, previous ER visits, and all imaging studies reviewed. Case discussed with Dr. Wilber Palm clinical admissions manager at [facility] no acute intervention at this time follow up with his regular aqua ammonia operator this coming week as he has progressive CKD with Cr. 2.5, 3.0, 3.55,4.0 and now in the 5.0s range. Potassium normal patient is not overloaded and is still making urine okay for discharge per . Discharge Plan Departure Patient Disposition: Home Clinical Impression: CKD (chronic kidney disease), Acute hyperglycemia Activity Restrictions/Additional Instructions: Return with new or worsening symptoms. Follow up with your aqua ammonia operator this week call office for appointment. Prescriptions: No Action fluoxetine 40 mg capsule 40 mg PO DAILY atorvastatin 80 mg tablet 80 mg PO QPM Lantus Solostar U-100 Insulin 100 unit/mL (3 mL) insulin pen 50 unit SUBCUT QPM metformin 500 mg tablet 500 mg PO BID insulin aspart U-100 [Novolog FlexPen U-100 Insulin] 100 unit/mL (3 mL) insulin pen See Rx Instructions .ROUTE .COMPLEX PRN (Reason: Hyperglycemia) Rx Instructions: sliding scale based on carb intake pantoprazole 40 mg tablet,delayed release (DR/EC) 40 mg PO QAM metoclopramide HCl [Reglan] 10 mg tablet 10 mg PO Q6H PRN (Reason: nausea and vomiting) Qty: 10 0RF promethazine 25 mg tablet 25 mg PO TID PRN (Reason: nausea and vomiting) Qty: 14 0RF famotidine 40 mg tablet 40 mg PO DAILY metoprolol succinate 100 mg tablet extended release 24 hr 100 mg PO DAILY pioglitazone 45 mg tablet 45 mg PO DAILY tamsulosin 0.4 mg capsule 0.4 mg PO QPM Patient Comments: TAKE ONE CAPSULE BY MOUTH EVERY EVENING TO IMPROVE VOIDING gabapentin 300 mg capsule 300 mg PO TID Patient Comments: TAKE 1 CAPSULE BY MOUTH THREE TIMES DAILY FOR CHRONIC PAIN. TAKE WITH 100MG. acamprosate 333 mg tablet,delayed release (DR/EC) 333 mg PO DAILY fenofibrate nanocrystallized [Tricor] 145 mg tablet 145 mg PO QPM nifedipine 30 mg tablet extended release 30 mg PO DAILY Qty: 30 2RF clopidogrel 75 mg Tablet 75 mg PO DAILY Qty: 30 2RF nitroglycerin [Nitrostat] 0.4 mg Tablet, Sublingual 0.4 mg sublingual [id number] PRN (Reason: Chest Pain) Qty: 12 0RF aspirin 81 mg Tablet,Chewable 162 mg PO DAILY Qty: 120 2RF furosemide [Lasix] 20 mg tablet 20 mg PO DAILY Qty: 30 2RF potassium chloride 10 mEq tablet,ER particles/crystals 10 meq PO DAILY Qty: 30 2RF lisinopril 40 mg tablet 40 mg PO DAILY Referrals: Zhane Qureshi MD [Primary Care Provider, Internal Medicine] Stand Alone Forms: Patient Portal/API
[2025-07-22 11:50] LABS: Add Manual Diff / Slide Review NO; Hematocrit 38.4 % (41-53); Hemoglobin 13.7 g/dL (13.5-17.5); Lymphocytes Absolute Auto 1000 /uL (1100-4500); Mean Corpuscular HGB Conc 35.8 % (30-36); Mean Corpuscular Hemoglobin 30.5 PG (26-34); Mean Corpuscular Volume 85.4 fL (80-100); Platelet Count 192 X10^3/uL (150-400)
[2025-07-22 12:03] LABS: Alanine Aminotransferase 29 IU/L (<50); Albumin 3.9 g/dL (3.5-5.0); Albumin Globulin Ratio 1.3 (1.0-2.8); Alkaline Phosphatase 173 U/L (38-126); Calcium 8.8 mg/dL (8.4-10.2); Carbon Dioxide 25 mmol/L (22-32); Chloride 96 mmol/L (98-107); Globulin 3.0 g/dL (1.7-4.1); Glucose 422 mg/dL (70-99); HEMOLYSIS < 15 (0-50); Potassium 3.4 mmol/L (3.4-5.1); Sodium 132 mmol/L (137-145); Total Protein 6.9 g/dL (6.3-8.2)
[2025-07-22 12:07] LABS: Blood Urea Nitrogen 72 mg/dL (9-20); Estimated Glomerular Filt Rate 11 mL/min (>60)
[2025-07-22] MEDS: INSULIN REGULAR 100 UNIT/ML 3 ML VIAL 10 UNIT SUBCUT (14:45)
[2025-07-22 14:50] VITALS: BP 129/83; PULSE 77; RESP 16; O2SAT 99
== END 2025-07-22 14:51 | disposition home or self-care (01) ==
PROVIDERS: Emergency Provider Family Medicine; PCP Internal Medicine
DX: E11.22 Type 2 diabetes mellitus with diabetic chronic kidney disease (principal); E11.65 Type 2 diabetes mellitus with hyperglycemia; N18.9 Chronic kidney disease, unspecified; Z79.4 Long term (current) use of insulin
CPT/HCPCS: 80053; 85025; 96372; 99281; 99283